=== PATIENT | female | born 1975 | race Caucasian/White ===

== ENCOUNTER 2023-05-24 10:54 | Outpatient (OUT) | payer BC, SELFPAY ==
[2023-05-24 12:20] LABS: Free T4 0.81 ng/dL (0.76-1.46)
[2023-05-24 12:21] LABS: Alanine Aminotransferase 22 U/L (14-59); Albumin Globulin Ratio 1.1; Alkaline Phosphatase 68 U/L (46-116); Aspartate Amino Transferase 19 U/L (15-37); Bilirubin Direct 0.1 mg/dL (0.0-0.2); Bilirubin Total 0.4 mg/dL (0.2-1.0); Free T3 2.65 pg/mL (2.18-3.98); Globulin 3.8 g/dL; Thyroid Stimulating Hormone 1.424 uIU/mL (0.358-3.740); Total Protein 7.8 g/dL (6.4-8.2)
== END 2023-05-24 10:55 | disposition home or self-care (01) ==
LOC: LAB 10:57
PROVIDERS: PCP Family Medicine; Visit Provider Internal Medicine
DX: R79.89 Other specified abnormal findings of blood chemistry (principal); E05.90 Thyrotoxicosis, unspecified without thyrotoxic crisis or storm; E05.00 Thyrotoxicosis with diffuse goiter without thyrotoxic crisis or storm
CPT/HCPCS: 36415; 80076; 84439; 84443; 84481

== ENCOUNTER 2023-11-22 08:02 | Outpatient (OUT) | payer BC, SELFPAY ==
[2023-11-22 09:47] LABS: Free T4 0.85 ng/dL (0.76-1.46)
[2023-11-22 09:51] LABS: Alanine Aminotransferase 25 U/L (14-59); Albumin Globulin Ratio 1.1; Albumin Level 3.8 g/dL (3.4-5.0); Alkaline Phosphatase 69 U/L (46-116); Aspartate Amino Transferase 18 U/L (15-37); Bilirubin Direct 0.1 mg/dL (0.0-0.2); Bilirubin Total 0.4 mg/dL (0.2-1.0); Free T3 2.69 pg/mL (2.18-3.98); Globulin 3.6 g/dL; Thyroid Stimulating Hormone 1.942 uIU/mL (0.358-3.740); Total Protein 7.4 g/dL (6.4-8.2)
== END 2023-11-22 08:03 | disposition home or self-care (01) ==
LOC: LAB 08:03
PROVIDERS: PCP Family Medicine; Visit Provider Internal Medicine
DX: R79.89 Other specified abnormal findings of blood chemistry (principal); E05.90 Thyrotoxicosis, unspecified without thyrotoxic crisis or storm; E05.00 Thyrotoxicosis with diffuse goiter without thyrotoxic crisis or storm
CPT/HCPCS: 36415; 80076; 84439; 84443; 84481

== ENCOUNTER 2024-01-23 08:41 | Outpatient (OUT) | payer BC, SELFPAY ==
--- NOTE | 2024-01-23 08:44 | MM_ITS ---
Patient Name: ALLAN AVENDAÑO MR#: [id number] : 1975 Exam Date: 01/23/2024 Ordering Doctor: DR Merrill Amaya . RADIOLOGY REPORT PROCEDURE: MM TOMOSYNTHESIS SCREENING BI COMPARISON: MG MAMM SCREEN 3D NATI CAD, 01/01/2023. MG MAMM SCREEN 3D NATI CAD, 12/22/2021. MG MAMM SCREEN NATI W CAD, 12/20/2020. MG MAMM SCREEN NATI W CAD, 11/26/2017. INDICATIONS: Screening Calculator Name NCI Breast Cancer Risk Assessment Tool 5 Year Breast Cancer Risk 0.80% Lifetime Breast Cancer Risk 8.50% Personal Breast Cancer No Personal Ovarian Cancer No Treatments None Family Cancers None LOCATION: [facility] BREAST COMPOSITION: Heterogeneously dense,which may obscure small masses. FINDINGS: DIAGNOSTIC CATEGORY 2--BENIGN FINDING: RIGHT BREAST: No significant suspicious finding. Scattered benign-appearing lymph nodes are present. No significant change has occurred. LEFT BREAST: No significant suspicious finding. Scattered benign-appearing lymph nodes are present. No significant change has occurred. RECOMMENDATIONS: ROUTINE MAMMOGRAM AND CLINICAL EVALUATION IN 12 MONTHS. PLEASE NOTE: A NORMAL MAMMOGRAM DOES NOT EXCLUDE THE POSSIBILITY OF BREAST CANCER. A CLINICALLY SUSPICIOUS PALPABLE LUMP SHOULD BE BIOPSIED. Dictated by: Chema Espana M.D. on 01/23/2024 at 09:50 Approved by: Chema Espana M.D. on 01/23/2024 at 09:54
--- OUTSIDE RECORDS SUMMARY | 2024-01-23 08:47 | XMS_ITS | CCD ---
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 Name Role Phone ADRIEL, AHMAD Attending Unavailable ANU, DR SHONNA Chong Primary Care Unavailable ADRIEL, AHMAD Admitting Unavailable TRISTON, DR BEV Stallings Consulting Unavailable ZIEBHILARY, DR CHEMA Navarro Consulting Unavailable ADRIEL, AHMAIndio Consulting Unavailable NOBLE, DR SHONNA Chong Attending Unavailable NOBLE, DR SHONNA Chong Consulting Unavailable NOBLE, DR SHONNA Chong Primary Care Unavailable NOBLE, DR SHONNA Chong Admitting Unavailable ADRIEL, AHMAD Admitting Unavailable ADRIEL, AHMAD Attending Unavailable NOBLE, DR SHONNA Chong Consulting Unavailable NOBLE, DR SHONNA Chong Primary Care Unavailable ADRIEL, AHMAD Admitting Unavailable ADRIEL, AHMAD Attending Unavailable NOBLE, DR SHONNA Chong Primary Care Unavailable ADRIEL, AHMAD Consulting Unavailable KARASISmita ., DR MEHTA Attending Unavailabl e NOBLE, DR SHONNA Chong Primary Care Unavailable KARASISmita ., DR MEHTA Consulting Unavailabl e DAIN ., DR MEHTA Admitting Unavailabl e NAU, DR SHONNA Chong Primary Care Unavailable NOBLE, DR SHONNA Chong Admitting Unavailable NOBLE, DR SHONNA Chong Attending Unavailable KARCARMENK ., DR MEHTA Attending Unavailabl e NOBLE, DR SHONNA Chong Primary Care Unavailable KARASIK ., DR MEHTA Consulting Unavailabl e DAIN ., DR MEHTA Admitting Unavailjob e HANG, DR CHEMA Navarro Consulting Unavailable ADRIEL, AHMAD Admitting Unavailable ADRIEL, AHMAD Attending Unavailable NOBLE, DR SHONNA Chong Primary Care Unavailable ADRIEL, AHMAD Consulting Unavailable Anu, Shonna Unavailable Allergies Allergy Classification Reported Allergen(s) Allergy Type Date of Onset Reaction(s) Facility (1 source) patient allergy list reviewed by nurse or physicia Propensity to adverse reactions Comment:Done [facility] Other (1 source) Allergies Reconciled Propensity to adverse reactions Unknown [facility] Other Medications Current Medications Medication Drug Class(es) Dates Sig (Normalized) Sig (Original) methIMAzole 5 mg oral tablet (4 sources) Thyroid Hormone Synthesis Inhibitor take 1 tablet by mouth every twenty-four hours methIMAzole 5 MG 1 tablet Orally Once a day Active metoprolol tartrate 50 mg oral tablet (4 sources) beta-Adrenergic Joey take 1 capsule by mouth once daily Metoprolol Succinate 50 MG 1 capsule Orally Once a day Active phentermine hydrochloride 37.5 mg oral tablet (4 sources) Sympathomimetic Amine Anorectic Start: 06-07-2023 take 1 tablet by mouth once daily before breakfast Adipex-P 37.5 MG 1 tablet before breakfast Orally Once a day for 30 days May, Active Start: 03-15-2023 take 1 tablet by deangelo th once daily before breakfast Adipex-P 37.5 MG 1 tablet before breakfast Orally Once a day for 30 days March, Active Start: 02-11-2023 take 1 tablet by deangelo th once daily before breakfast Adipex-P 37.5 MG 1 tablet before breakfast Orally Once a day for 30 days Feb, Active Problems Active Problems Problem Classification Problem Date Documented Date Episodic/Chronic Allergic reactions (4 sources) Allergic contact dermatitis caused by plant material; Translations: [Allergic contact dermatitis due to plants, except food] Episodic Asthma (5 sources) Asthma; Translations: [Unspecified asthma, uncomplicated] Onset: 09-07-2014 Chronic Genitourinary symptoms and ill-defined conditions (1 source) Genitourinary symptoms; Translations: [Unspecified symptoms and signs involving the genitourinary system] Episodic Immunizations and screening for infectious disease (1 source) Encounter for screening for human papillomavirus (HPV); Translations: [ENC SCREENING HUMAN PAPILLOMAVIRUS] Onset: 01-16-2023 Episodic Intestinal infection (5 sources) Bacterial gastroenteritis; Translations: [Bacterial intestinal infection, unspecified] Episodic Other circulatory disease (1 source) Elevated blood-pressure reading without diagnosis of hypertension; Translations: [Elevated blood-pressure reading, without diagnosis of hypertension] Episodic Other connective tissue disease (5 sources) Muscle pain; Translations: [Myalgia, unspecified site] Episodic Other hereditary and degenerative nervous system conditions (4 sources) Other specified forms of tremor; Translations: [OTHER SPECIFIED FORMS OF TREMOR] Onset: 07-25-2022 Chronic Other hereditary and degenerative nervous system conditions (4 sources) Intention tremor; Translations: [Other specified forms of tremor] Chronic Other hereditary and degenerative nervous system conditions (1 source) Tremor; Translations: [Other specified forms of tremor] Chronic Other nervous system disorders (1 source) Tremor, unspecified; Translations: [TREMOR UNSPECIFIED] Onset: 10-28-2022 Episodic Other nutritional; endocrine; and metabolic disorders (2 sources) Body mass index (BMI) 27.0-27.9, adult Episodic Other nutritional; endocrine; and metabolic disorders (4 sources) Overweight Episodic Other nutritional; endocrine; and metabolic disorders (1 source) Body mass index (BMI) 25.0-25.9, adult Episodic Other nutritional; endocrine; and metabolic disorders (1 source) Body mass index 25-29 - overweight; Translations: [Body mass index (BMI) 27.0-27.9, adult] Episodic Other screening for suspected conditions (not mental disorders or infectious disease) (14 sources) Other specified abnormal findings of blood chemistry; Translations: [Encounter for screening for malignant neoplasm of cervix] Onset: 07-29-2022 Episodic Other skin disorders (1 source) Alopecia; Translations: [Nonscarring hair loss, unspecified] Episodic Other upper respiratory disease (5 sources) Seasonal allergic rhinitis; Translations: [Other allergic rhinitis] Onset: 02-17-2019 Chronic Other upper respiratory infections (1 source) Chronic sinusitis; Translations: [Chronic sinusitis, unspecified] Chronic Other upper respiratory infections (2 sources) Acute maxillary sinusitis; Translations: [Acute recurrent maxillary sinusitis] Onset: 01-07-2018 Episodic Thyroid disorders (6 sources) Thyrotoxicosis with diffuse goiter without thyrotoxic crisis or storm; Translations: [Thyrotoxicosis, unspecified without thyrotoxic crisis or storm] Onset: 10-28-2022 Chronic Viral infection (5 sources) Human papilloma virus infection; Translations: [Papillomavirus as the cause of diseases classified elsewhere] Episodic Past or Other Problems Problem Classification Problem Date Documented Da te Episodic/Chronic Abdominal pain (1 source) Abdominal pain; Translations: [Abdominal pain, other specified site] Onset: 06-13-2018 Episodic Acute bronchitis (1 source) Acute bronchitis; Translations: [Acute bronchitis, unspecified] Resolved: 10-31-2020 Episodic Cardiac dysrhythmias (1 source) Palpitations; Translations: [PALPITATIONS] Onset: 08-25-2022 Episodic Inflammation; infection of eye (except that caused by tuberculosis or sexually transmitteddisease) (1 source) Acute conjunctivitis; Translations: [Unspecified acute conjunctivitis] Onset: 06-04-2016 Episodic Other infections; including parasitic (1 source) Helminth infection; Translations: [Unspecified helminth infection] Onset: 07-21-2018 Episodic Other non-traumatic joint disorders (1 source) Shoulder joint pain; Translations: [Pain in right shoulder] Onset: 03-13-2017 Episodic Other nutritional; endocrine; and metabolic disorders (1 source) Underweight; Translations: [Underweight] Resolved: 10-31-2020 Episodic Spondylosis; intervertebral disc disorders; other back problems (2 sources) Neck pain; Translations: [Cervicalgia] Onset: 03-13-2017 Resolved: 10-31-2020 Episodic Results Test Name Value Interpretation Reference Range Facility FREE T3on 01-18-2023 FREE T3 2.54 pg/mlL Normal 2.18-3.98 [facility] Comment on above: Performed By: #### F T3, TSH #### [facility] [address] [place] [address] Dr. Celso Abraham FREE T4on 01-18-2023 Free T4 [Mass/Vol] 0.70 ng/dL Critically low 0.76-1.46 [facility] Comment on above: Performed By: #### F T4 #### [facility] [address] [place] [address] Dr. Celso Abraham PAP ACOG PANEL 2: 30 to 65on 01-18-2023 . . Normal [facility] Comment on above: Result Comment: Perf ormed at: [facility] Performed By: #### C MP, TSH #### [facility] [address] [place] [address] Dr. Celso Abraham Age Gdln ACOG Testing 30-65 Normal [facility] Comment on above: Performed By: #### C MP, TSH #### [facility] [address] [address] [address] Celso Abraham DIAGNOSIS: Comment Normal [facility] Comment on above: Result Comment: NEGA TIVE FOR INTRAEPITHELIAL LESION OR MALIGNANCY. Performed at: [facility] Performed By: #### C MP, TSH #### [facility] [address] [address] [address] Celso Abraham HPV Aptima Negative Normal Negative [facility] Comment on above: Result Comment: This nucleic acid amplification test detects fourteen high-risk HPV types (16,18,31,33,35,39,45,51,52,56,58,59,66,68) without differentiation. Performed at: =G Performed By: #### C MP, TSH #### [facility] [address] [place] [address] Dr. Celso Abraham HPV Genotype Reflex Comment Normal [facility] Comment on above: Result Comment: Crit eria not met, HPV Genotype not performed. Performed at: [facility] Performed By: #### C MP, TSH #### [facility] [address] [place] [address] Dr. Celso Abraham Methodology: Comment Normal [facility] Comment on above: Result Comment: This liquid based ThinPrep(R) pap test was screened with the use of an image guided system. Performed at: [facility] Performed By: #### C MP, TSH #### [facility] [address] [place] [address] Dr. Celso Abraham Note: Comment Normal [facility] Comment on above: Result Comment: The Pap smear is a screening test designed to aid in the detection of premalignant and malignant conditions of the uterine cervix. It is not a diagnostic procedure and should not be used as the sole means of detecting cervical cancer. Both false-positive and false-negative reports do occur. . Performed at: [facility] Performed By: #### C MP, TSH #### [facility] [address] [place] [address] Dr. Celso Abraham Performed by: Comment Normal [facility] [place] [facility] Comment on above: Result Comment: Savanna Lopez Reservations Sales Agent (ASCP) Performed at: [facility] Performed By: #### C MP, TSH #### [facility] [address] [place], [place] [address] Dr. Celso Abraham Specimen adequacy: Comment Normal [facility] [place] [facility] Comment on above: Result Comment: Sati sfactory for evaluation. Endocervical and/or squamous metaplastic cells (endocervical component) are present. Performed at: [facility] Performed By: #### C MP, TSH #### [facility] [address] [address] [address] Celso Abraham TSHon 01-18-2023 TSH 0.687 uIU/mL Normal 0.358-3.740 [facility] [place] [facility] Comment on above: Performed By: #### F T3, TSH #### [facility] [address] [place], [place] [address] Dr. Celso Abraham MG MAMM SCREEN 3D NATI CADon 01-01-2023 MG MAMM SCREEN 3D NATI CAD Patient: ALLAN AVENDAÑO Exam Date: 01/01/2023 : 1975 Gender:F Ordering : DR TYSON GAUTAM . Admission #: [id number] Family : Order #: [id number] CLICK HERE TO VIEW EXAM RADIOLOGY REPORT PROCEDURE: MAMMOGRAM SCREENING 3D BILATERAL CAD COMPARISON: MG MAMM SCREEN 3D NATI CAD, 12/22/2021. MG MAMM SCREEN NATI W CAD, 12/20/2020. MG MAMM SCREEN NATI W CAD, 12/16/2019. MG MAMM SCREEN NATI W CAD, 11/26/2017. INDICATIONS: Screening mammography Calculator Name NCI Breast Cancer Risk Assessment Tool 5 Year Breast Cancer Risk 0.70% Lifetime Breast Cancer Risk 8.60% Personal Breast Cancer No Personal Ovarian Cancer No Treatments None Family Cancers None LOCATION: [facility] BREAST COMPOSITION: Heterogeneously dense,which may obscure small masses. FINDINGS: DIAGNOSTIC CATEGORY 2--BENIGN FINDING: RIGHT BREAST: No significant suspicious finding. Stable benign-appearing lymph node present. No significant change has occurred. LEFT BREAST: No significant suspicious finding. No significant change has occurred. RECOMMENDATIONS: ROUTINE MAMMOGRAM AND CLINICAL EVALUATION IN 12 MONTHS. PLEASE NOTE: A NORMAL MAMMOGRAM DOES NOT EXCLUDE THE POSSIBILITY OF BREAST CANCER. A CLINICALLY SUSPICIOUS PALPABLE LUMP SHOULD BE BIOPSIED. Dictated by: Chema Espana M.D. on 01/02/2023 at 14:10 Approved by: Chema Espana M.D. on 01/02/2023 at 14:12 Normal [facility] THYROTROPIN RECEPTOR ABon Thyrotropin Receptor Ab, Serum 3.12 IU/L Critically high 0.00-1.75 [facility] Comment on above: Performed By: #### C MP, TSH #### [facility] [address] [place] [address] Dr. Celso Abraham FREE T3on 10-23-2022 FREE T3 2.19 pg/mlL Normal 2.18-3.98 [facility] Comment on above: Performed By: #### T SH, FT3, LIVER #### [facility] [address] [place] [address] Dr. Celso Abraham FREE T4on 10-23-2022 Free T4 [Mass/Vol] 0.72 ng/dL Critically low 0.76-1.46 [facility] Comment on above: Performed By: #### C MP, TSH #### [facility] [address] [place] [address] Dr. Celso Abraham LIVER PROFILEon 10-23-2022 Albumin [Mass/Vol] 3.6 g/dL Normal 3.4-5.0 [facility] Comment on above: Performed By: #### T SH, FT3, LIVER #### [facility] [address] [place] [address] Dr. Celso Abraham Albumin/Globulin [Mass ratio] 1.1 {ratio} Normal [facility] Comment on above: Performed By: #### T SH, FT3, LIVER #### [facility] [address] [place] [address] Dr. Celso Abraham ALP [Catalytic activity/Vol] 136 U/L Critically high 46-116 [facility] Comment on above: Performed By: #### T SH, FT3, LIVER #### [facility] [address] [place] [address] Dr. Celso Abraham ALT [Catalytic activity/Vol] 32 U/L Normal 14-59 [facility] Comment on above: Performed By: #### T SH, FT3, LIVER #### [facility] [address] [place] [address] Dr. Celso Abraham AST [Catalytic activity/Vol] 24 U/L Normal 15-37 [facility] Comment on above: Performed By: #### T SH, FT3, LIVER #### [facility] [address] [place] [address] Dr. Celso Abraham BILI, CONJUGATED 0.1 mg/dL Normal 0.0-0.[address] [facility] Comment on above: Performed By: #### T SH, FT3, LIVER #### [facility] [address] [place] [address] Dr. Celso Abraham Bilirubin [Mass/Vol] 0.4 mg/dL Normal 0.2-1.0 [facility] Comment on above: Performed By: #### T SH, FT3, LIVER #### [facility] [address] [place] [address] Dr. Celso Abraham Globulin (S) [Mass/Vol] 3.4 g/dL Normal [facility] Comment on above: Performed By: #### T SH, FT3, LIVER #### [facility] [address] [place] [address] Dr. Celso Abraham Protein [Mass/Vol] 7.0 g/dL Normal 6.4-8.2 [facility] Comment on above: Performed By: #### T SH, FT3, LIVER #### [facility] [address] [place] [address] Dr. Celso Abraham TSHon 10-23-2022 TSH Qn m[IU]/L Critically low 0.358-3.740 [facility] Comment on above: Performed By: #### T SH, FT3, LIVER #### [facility] [address] [place] [address] Dr. Celso Abraham THYROID ANTIBODIESon 022 Thyroglobulin Antibody 62.7 IU/mL Critically high 0.0-0.9 [facility] Comment on above: Result Comment: Thyr oglobulin Antibody measured by [employer] Methodology Performed By: #### C MP, TSH #### [facility] [address] [place] [address] Dr. Celso Abraham Thyroid Peroxidase (TPO) Ab 115 IU/mL Critically high 0-34 [facility] Comment on above: Performed By: #### C MP, TSH #### [facility] [address] [place] [address] Dr. Celso Abraham THYROTROPIN RECEPTOR ABon Thyrotropin Receptor Ab, Serum 7.58 IU/L Critically high 0.00-1.75 [facility] Comment on above: Performed By: #### T HYRABT #### [facility] [address] [place] [address] Dr. Celso Abraham NM THY SCAN W [place] 08-23-20 22 NM THY SCAN W UPT EXAMINATION: NM THY SCAN W UPT HISTORY: Palpitations , abnormal blood chemistry, thyrotoxicosis COMPARISON: No relevant comparison available. TECHNIQUE: After obtaining patient consent, 259.9 uCi I-123 was administered orally. Uptake was evaluated between 4 and 6 hours and at 24 hours. Images were acquired at 4 - 6 hours. FINDINGS: THYROID SCAN: The thyroid gland appears diffusely enlarged Six-hour uptake: 45.1%, normal range 6-14% 24 hour uptake: 64%, normal range 10-30% IMPRESSION: Enlarged thyroid gland with markedly increased uptake consistent with hyperthyroidism Electronically authenticated by: BEV GOLDSTEIN Date: 2022-08-23 08:02 Normal [facility] FREE T3on 08-22-2022 FREE T3 7.90 pg/mlL Critically high 2.18-3.[address] [facility] Comment on above: Performed By: #### C MP, TSH #### [facility] [address] [place] [address] Dr. Celso Abraham FREE T4on 08-22-2022 Free T4 [Mass/Vol] 2.01 ng/dL Critically high 0.76-1.46 [facility] Comment on above: Performed By: #### C MP, TSH #### [facility] [address] [place] [address] Dr. Celso Abraham LIVER PROFILEon 08-22-2022 Albumin [Mass/Vol] 3.4 g/dL Normal 3.4-5.0 [facility] Comment on above: Performed By: #### C MP, TSH #### [facility] [address] [address] [address] Celso Abraham Albumin/Globulin [Mass ratio] 1.0 {ratio} Normal [facility] Comment on above: Performed By: #### C MP, TSH #### [facility] [address] [address] [address] Celso Abraham ALP [Catalytic activity/Vol] 160 U/L Critically high 46-116 [facility] Comment on above: Performed By: #### C MP, TSH #### [facility] [address] [address] [address] Celso Abraham ALT [Catalytic activity/Vol] 34 U/L Normal 14-59 [facility] Comment on above: Performed By: #### C MP, TSH #### [facility] [address] [address] [address] Celso Abraham AST [Catalytic activity/Vol] 14 U/L Critically low 15-37 [facility] Comment on above: Performed By: #### C MP, TSH #### [facility] [address] [address] [address] Celso Abraham BILI, CONJUGATED 0.1 mg/dL Normal 0.0-0.[address] [facility] Comment on above: Performed By: #### C MP, TSH #### [facility] [address] [address] [address] Celso Abraham Bilirubin [Mass/Vol] 0.2 mg/dL Normal 0.2-1.0 [facility] Comment on above: Performed By: #### C MP, TSH #### [facility] [address] [address] [address] Celso Abraham Globulin (S) [Mass/Vol] 3.4 g/dL Normal [facility] Comment on above: Performed By: #### C MP, TSH #### [facility] [address] [address] [address] Celso Abraham Protein [Mass/Vol] 6.8 g/dL Normal 6.4-8.2 [facility] [place] [facility] Comment on above: Performed By: #### C MP, TSH #### [facility] [address] [address] [address] Celso Abraham TSHon 08-22-2022 TSH Qn m[IU]/L Critically low 0.358-3.740 [facility] Comment on above: Performed By: #### C MP, TSH #### [facility] [address] [address] [address] Celso Abraham US THYROIDon 08-22-2022 US THYROID EXAMINATION: US THYROID HISTORY: Thyrotoxicosis COMPARISON: No relevant comparison available. FINDINGS: RIGHT LOBE: Heterogeneous hypervascular thyroid lobe. Lobe size: 5.1 x 1.7 0.6 cm LEFT LOBE: Heterogeneous hypervascular thyroid lobe. Lobe size: 4.9 x 1.6 x 1.7 cm ISTHMUS: Contains a 5 x 4 x 3 mm TR 4 nodule within left aspect of the isthmus. Thickness: 3 mm IMPRESSION: 1. Heterogeneous hypervascular thyroid gland, nonspecific but suggestive of thyroiditis. 2. Single 5 mm TR 4 nodule within the isthmus. Consider follow-up in 2-3 years. TR4 (moderately suspicious): If > 1.0 cm Follow-up ultrasound in 1, 2, 3, and 5 years. If > 1.5 cm fine needle aspiration (FNA). Electronically authenticated by: CHEMA ESPANA Date: 2022-08-22 16:07 Normal [facility] CERULOPLASMINon 07-26-2022 Ceruloplasmin 34.9 mg/dL Normal 19.0-39.0 [facility] [place] [facility] Comment on above: Performed By: #### C EUROPL #### [facility] [address] [address] [address] Celso Abraham FREE T4on 07-25-2022 Free T4 [Mass/Vol] 2.34 ng/dL Critically high 0.76-1.46 [facility] Comment on above: Performed By: #### C MP, TSH #### [facility] [address] [address] [address] Celso Abraham PROF 14(COMP METB)on 09-14-2 022 Albumin [Mass/Vol] 3.8 g/dL Normal 3.4-5.0 [facility] Comment on above: Performed By: #### C MP, TSH #### [facility] [address] [place] [address] Dr. Celso Abraham Albumin/Globulin [Mass ratio] 1.1 {ratio} Normal [facility] Comment on above: Performed By: #### C MP, TSH #### [facility] [address] [address] [address] Celso Abraham ALP [Catalytic activity/Vol] 163 U/L Critically high 46-116 [facility] Comment on above: Performed By: #### C MP, TSH #### [facility] [address] [place] [address] Dr. Celso Abraham ALT [Catalytic activity/Vol] 41 U/L Normal 14-59 [facility] Comment on above: Performed By: #### C MP, TSH #### [facility] [address] [place] [address] Dr. Celso Abraham Anion gap [Moles/Vol] 13.4 mmol/L Normal [facility] Comment on above: Performed By: #### C MP, TSH #### [facility] [address] [place] [address] Dr. Celso Abraham AST [Catalytic activity/Vol] 21 U/L Normal 15-37 [facility] Comment on above: Performed By: #### C MP, TSH #### [facility] [address] [place] [address] Dr. Celso Abraham Bilirubin [Mass/Vol] 0.5 mg/dL Normal 0.2-1.0 [facility] Comment on above: Performed By: #### C MP, TSH #### [facility] [address] [place] [address] Dr. Celso Abraham Calcium [Mass/Vol] 9.8 mg/dL Normal 8.5-10.1 [facility] Comment on above: Performed By: #### C MP, TSH #### [facility] [address] [place] [address] Dr. Celso Abraham Chloride [Moles/Vol] 104 mmol/L Normal 98-107 [facility] Comment on above: Performed By: #### C MP, TSH #### [facility] [address] [place] [address] Dr. Celso Abraham CO2 [Moles/Vol] 24.9 mmol/L Normal 21.0-32.[address] [facility] Comment on above: Performed By: #### C MP, TSH #### [facility] [address] [place] [address] Dr. Celso Abraham Creatinine [Mass/Vol] 0.67 mg/dL Normal 0.55-1.02 [facility] Comment on above: Performed By: #### C MP, TSH #### [facility] [facility] [address] [place] [address] Dr. Celso Abraham EGFR-AF TURKISH >60 Normal >=[address] [facility] Comment on above: Performed By: #### C MP, TSH #### [facility] [address] [place] [address] Dr. Celso Abraham EGFR-NON AF TURKISH >60 Normal >=60 [facility] Comment on above: Performed By: #### C MP, TSH #### [facility] [address] [place] [address] Dr. Celso Abraham Globulin (S) [Mass/Vol] 3.6 g/dL Normal [facility] Comment on above: Performed By: #### C MP, TSH #### [facility] [address] [place] [address] Dr. Celso Abraham Glucose [Mass/Vol] 104 mg/dL Normal 74-106 [facility] Comment on above: Performed By: #### C MP, TSH #### [facility] [address] [place] [address] Dr. Celso Abraham Potassium [Moles/Vol] 4.3 mmol/L Normal 3.5-5.1 [facility] Comment on above: Performed By: #### C MP, TSH #### [facility] [address] [place] [address] Dr. Celso Abraham Protein [Mass/Vol] 7.4 g/dL Normal 6.4-8.2 [facility] Comment on above: Performed By: #### C MP, TSH #### [facility] [address] [address] [address] Celso Abraham Sodium [Moles/Vol] 138 mmol/L Normal 136-145 [facility] Comment on above: Performed By: #### C MP, TSH #### [facility] [address] [address] [address] Celso Abraham Urea nitrogen [Mass/Vol] 14.0 mg/dL Normal 7.0-18.0 [facility] Comment on above: Performed By: #### C MP, TSH #### [facility] [address] [address] [address] Celso Abraham Urea nitrogen/Creatinine [Mass ratio] 20.9 mg/mg Normal [facility] Comment on above: Performed By: #### C MP, TSH #### [facility] [address] [address] [address] Celso Abraham TSHon 07-25-2022 TSH Qn m[IU]/L Critically low 0.358-3.740 [facility] Comment on above: Performed By: #### C MP, TSH #### [facility] [address] [place] [address] Dr. Celso Abraham Vital Signs Date Time Vital Sign Value Performing Clinician Facility 06-07-2023 11:45-0400 Body height 158.75 cm Shonna Noble Other [facility] Other 06-07-2023 11:45-0400 Body mass index (BMI) [Ratio] 25.2 kg/m2 Shonna Noble Other [facility] Other 06-07-2023 11:45-0400 Body weight 63.5 kg Shonna Noble Other [facility] Other 06-07-2023 11:45-0400 Diastolic blood pressure 60 mm[Hg] Shonna Noble Other [facility] Other 06-07-2023 11:45-0400 Systolic blood pressure 99 mm[Hg] Shonna Noble Other [facility] Other 03-15-2023 10:00-0400 Body height 158.75 cm Shonna Noble Other [facility] Other 03-15-2023 10:00-0400 Body mass index (BMI) [Ratio] 25.92 kg/m2 Shonna Noble Other [facility] Other 03-15-2023 10:00-0400 Body weight 65.32 kg Shonna Nolbe Other [facility] Other 03-15-2023 10:00-0400 Diastolic blood pressure 58 mm[Hg] Shonna Noble Other [facility] Other 03-15-2023 10:00-0400 Systolic blood pressure 94 mm[Hg] Shonna Noble Other [facility] Other 02-11-2023 14:45-0400 Body height 158.75 cm Shonna Noble Other [facility] Other 02-11-2023 14:45-0400 Body mass index (BMI) [Ratio] 27.9 kg/m2 Shonna Noble Other [facility] Other 02-11-2023 14:45-0400 Body weight 70.31 kg Shonna Noble Other [facility] Other 02-11-2023 14:45-0400 Diastolic blood pressure 64 mm[Hg] Shonna Noble Other [facility] Other 02-11-2023 14:45-0400 SaO2% (BldA) [Mass fraction] 97 % Shonna Noble Other [facility] Other 02-11-2023 14:45-0400 Systolic blood pressure 98 mm[Hg] Shonna Noble Other [facility] Other Encounters Encounter Date Encounter Type Care Provider Facility Start: 06-07-2023 End: 06-07-2023 ambulatory Shonna Noble Other [facility] Other Start: 06-07-2023 Office outpatient vi sit 15 minutes Shonna Noble [facility] Start: 03-15-2023 End: 03-15-2023 ambulatory Shonna Noble Other [facility] Other Start: 03-15-2023 Office outpatient vi sit 15 minutes Shonna Noble [facility] Start: 02-11-2023 End: 02-11-2023 ambulatory Shonna Noble Other [facility] Other Start: 02-11-2023 Office outpatient vi sit 15 minutes Shonna Noble [facility] Start: 01-18-2023 End: 01-19-2023 ambulatory [facility] Facility:[facility] Start: 01-15-2023 End: 01-15-[address] TYSON GAUTAM . Facility:[facility] Start: 01-01-2023 End: 01-02-[address] TYSON GAUTAM . Facility:[facility] Start: 10-23-2022 End: 10-24-2022 ambulatory [facility] Facility:[facility] Start: 10-08-2022 Gynecological examin ation normal Shonna Noble Other [facility] Other Start: 08-23-2022 ambulatory [facility] Facility: [facility] Start: 08-22-2022 End: 08-23-2022 ambulatory [facility] Facility:[facility] Start: 07-25-2022 Adult health examination Yara Noble Other [facility] Other Start: 07-25-2022 End: 07-26-[address] SHONNA NOBLE Facility:[facility] Start: 02-27-[address] SHONNA NOBLE [facility] ity:[facility]1 Procedures Date Procedure Procedure Detail Performing Clinician Screening for malign ant neoplasm of breast Shonna Noble Other Screening for malign ant neoplasm of breast Shonna Noble Other Payers Date Payer Category Payer Unknown [id number] 2.16.84 [id number] 1977 Unknown [id number] 2.16.84 [id number] 1977 Unknown [id number] 2.16.84 [id number] 1977 Unknown [id number] 2.16.84 [id number] 1977 Unknown [id number] 2.16.84 [id number] 1977 Unknown [id number] 2.16.84 [id number] 1977 Unknown [id number] 2.16.84 [id number] 1977 Unknown [id number] 2.16.84 [id number] 1959 Self-pay 1957 Unknown [id number] Social History Date Type Detail Facility Unknown if ever smoked [facility] Other Sex Assigned At Sex Assigned At Bir th [facility] Other Evaluation note 06-07-2023 Note Date & Type Note Facility 06-07-2023 Evaluation note Encounter Date Diagnosis Assessment Notes May, Overweight (BMI 25.0-29.9) (ICD-10 - E66.3) Last filled on 03/15 - discussed new pharmacy rules. BMI is 25 and she filled it in March. Unsure if [facility] can fill this. Pt expressed marilia harrell Discussed diet and exercise. May, Hyperthyroidism (ICD-10 - E05.90) Discussed labs and treatment with Dr. Matias [facility] Other Evaluation note 03-15-2023 Note Date & Type Note Facility 03-15-2023 Evaluation note Encounter Date Diagnosis Assessment Notes March, Overweight (ICD-10 - E66.3) Patient has clearly made a good vianca effort for several months on her own to lose weight with little success. Pt to start Adipex daily. Medication is a stimulant. May cause you to be jittery or constipated. Take in the morning, may also take stool softener daily as needed. Continue to eat a healthy well balanced diet and continue work-out regimine. Pt aware that this is not a cure for obesity but a tool used to help them during their weight loss plateau. Pt aware that they need to continue to work hard at weight loss or the weight will be regained. Side effects discussed and understood. Pt education printed and discussed. Pt notified of prescribing schedule with 30 day dispensing, no refills, for up to 12 weeks, with a 6 month break in-between treatments. Id SOB, CP, mood changes, tachycardia, HTN, headaches, blurred vision occur, go to ER and Follow-up with me immediately. Understands this will likely be her last month with her good progress. March, Body mass index [BMI] 25.0-25.9, adult (ICD-10 - Z68.25) [facility] Other Evaluation note 02-11-2023 Note Date & Type Note Facility 02-11-2023 Evaluation note Encounter Date Diagnosis Assessment Notes Feb, BMI 27.0-27.9,adul t (ICD-10 - Z68.27) Feb, Overweight (BMI 25.0-29.9) (ICD-10 - E66.3) Patient has clearly made a good vianca effort for several months on her own to lose weight with little success. Pt to start Adipex daily. Medication is a stimulant. May cause you to be jittery or constipated. Take in the morning, may also take stool softener daily as needed. Continue to eat a healthy well balanced diet and continue work-out regimine. Pt aware that this is not a cure for obesity but a tool used to help them during their weight loss plateau. Pt aware that they need to continue to work hard at weight loss or the weight will be regained. Side effects discussed and understood. Pt education printed and discussed. Pt notified of prescribing schedule with 30 day dispensing, no refills, for up to 12 weeks, with a 6 month break in-between treatments. Id SOB, CP, mood changes, tachycardia, HTN, headaches, blurred vision occur, go to ER and Follow-up with me immediately. Advised her to cut tablets in 1/2 initially. [facility] Other Evaluation note 02-11-2023 Note Date & Type Note Facility 02-11-2023 Evaluation note Encounter Date Diagnosis Assessment Notes Feb, BMI 27.0-27.9,adult (ICD-10 - Z68.27) Feb, Overweight (BMI 25.0-29.9) (ICD-10 - E66.3) Patient has clearly made a good vianca effort for several months on her own to lose weight with little success. Pt to start Adipex daily. Medication is a stimulant. May cause you to be jittery or constipated. Take in the morning, may also take stool softener daily as needed. Continue to eat a healthy well balanced diet and continue work-out regimine. Pt aware that this is not a cure for obesity but a tool used to help them during their weight loss plateau. Pt aware that they need to continue to work hard at weight loss or the weight will be regained. Side effects discussed and understood. Pt education printed and discussed. Pt notified of prescribing schedule with 30 day dispensing, no refills, for up to 12 weeks, with a 6 month break in-between treatments. Id SOB, CP, mood changes, tachycardia, HTN, headaches, blurred vision occur, go to ER and Follow-up with me immediately. Advised her to cut tablets in 1/2 initially. Feb, Hyperthyroidism (ICD-10 - E05.90) Discussed that she is under the care of Dr. Matias for this problem, this bears a component in her hair and weight issues. Continue followup with his office. [facility] Other History general Narrative - Reported Note Date & Type Note Facility History general Narrative - Reported Type Medical History seasonal allergies Medical History asthma Medical History infectious gastroenteritis Medical History myalgia Medical History intention tremor Medical History HPV infection Surgical History section Hospitalization History see surgical hx [facility] Other Summary Purpose Family History No Family History Records Found Advance Directives No Advanced Directives Records Found Additional Source Comments INFORMATION SOURCE (unrecogn ized section and content) DATE CREATED AUTHOR 01/23/2023 [facility] REASON FOR VISIT (unrecogniz ed section and content) Hair Loss/ WeightCheck UpHai r Loss/ WeightMedication Discussion FOR RECORDS PERTAINING TO PATIENTS WHO ARE OR HAVE BEEN ENROLLED IN A CHEMICAL DEPENDENCY/SUBSTANCEABUSE PROGRAM, SOME INFORMATION MAY BE OMITTED. This clinical summary was aggregated from multiple sources. Caution should be exercised in using it in the provision of clinical care. This summary normalizes information from multiple sources, and as a consequence, information in this document may materially change the coding, format and clinical context of patient data. In addition, data may be omitted in some cases. CLINICAL DECISIONS SHOULD BE BASED ON THE PRIMARY CLINICAL RECORDS. [employer] [facility]. provides no warranty or guarantee of the accuracy or completeness of information in this document.
== END 2024-01-23 08:42 | disposition home or self-care (01) ==
LOC: MAMMO 08:41
PROVIDERS: PCP Family Medicine; Visit Provider Obstetrics & Gynecology
DX: Z12.31 Encounter for screening mammogram for malignant neoplasm of breast (principal)
CPT/HCPCS: 77063; 77067

== ENCOUNTER 2024-03-09 20:09 | Outpatient (REF) | payer BC, SELFPAY ==
--- OUTSIDE RECORDS SUMMARY | 2024-03-09 20:14 | XMS_ITS | CCD ---
Author Organization [facility] Care Team Providers Care Shellfish Shucker Name Role Phone ADRIEL AHMAD Attending Unavailable ANU, DR SHONNA Chong Primary Care Unavailable ADRIEL, AHMAD Admitting Unavailable SMITHFIELD, DR BEV Stallings Consulting Unavailable ZIEBHILARY, DR CHEMA Navarro Consulting Unavailable ADRIEL, AHMAD Consulting Unavailable NOBLE, DR SHONNA Chong Attending Unavailable NOBLE, DR SHONNA Chong Consulting Unavailable NOBLE, DR SHONNA Chong Primary Care Unavailable NOBLE, DR SHONNA Chong Admitting Unavailable ADRIEL, AHALEX Admitting Unavailable ADRIEL, AHMILOD Attending Unavailable ANU, DR SHONNA Chong Consulting Unavailable ANU, DR SHONNA Chong Primary Care Unavailable ADRIEL, AHMAIndio Admitting Unavailable ADRIEL, AHMILOD Attending Unavailable NOBLE, DR SHONNA Chong Primary Care Unavailable ADRIEL, AHALEX Consulting Unavailable KARASISmita ., DR MEHTA Attending Unavailabl e NOBLE, DR SHONNA Chong Primary Care Unavailable KARASIK ., DR MEHTA Consulting Unavailabl e KARASIK ., DR MEHAT Admitting Unavailabl e ANU, DR SHONNA Chong Primary Care Unavailable NOBLE, DR SHONNA Chong Admitting Unavailable NOBLE, DR SHONNA Chong Attending Unavailable KARASIK ., DR MEHTA Attending Unavailabl e NOBLE, DR SHONNA Chong Primary Care Unavailable KARASIK ., DR MEHTA Consulting Unavailabl e KARASIK ., DR MEHTA Admitting Unavailabl e HANG, DR CHEMA Navarro Consulting Unavailable ADRIEL, AHMAD Admitting Unavailable ADRIEL, AHMAD Attending Unavailable NOBLE, DR SHONNA Chong Primary Care Unavailable ADRIEL, AHMAD Consulting Unavailable Shonna Noble Unavailable Allergies Allergy Classification Reported Allergen(s) Allergy Type Date of Onset Reaction(s) Facility (1 source) patient allergy list reviewed by nurse or physicia Propensity to adverse reactions 9 Comment:Done [employer] Other (1 source) Allergies Reconciled Propensity to adverse reactions Unknown [employer] Other Medications Current Medications Medication Drug Class(es) Dates Sig (Normalized) Sig (Original) Azithromycin (1 source) Macrolide Antimicrobial Start: 02-10-2024 Azithromycin Active 0 PO .COMPLEX 6 February 10, 2024 12:00am For 250 mg dose pack: take 500 mg today (day 1), then 250 mg for 4 days (days 2-5) PO benzonatate 200 mg oral capsule (1 source) Non-narcotic Antitussive Start: 02-10-2024 Benzonatate Active 200 MG PO 2-3 TIMES PER DAY February 10, 2024 12:00am methIMAzole 5 mg oral tablet (5 sources) Thyroid Hormone Synthesis Inhibitor Start: 02-10-2024 take 1 tablet by mouth once daily Methimazole Active 1 TAB PO Daily February 10, 2024 12:00am [employer] tablet Orally Once a day; Note: Source Status: Taking; Provider: Anu Kilpatrick ( ) take 1 tablet by deangelo th every twenty-four hours methIMAzole 5 MG 1 tablet Orally Once a day Active 24 hr metoprolol succinate 50 mg extended release oral tablet (5 sources) beta-Adrenergic Joey Start: 02-10-2024 take 1 tablet by mouth once daily Metoprolol Succinate Active 1 TAB PO Daily February 10, 2024 12:00am [employer]: TAKE 1 TABLET BY MOUTH EVERY DAY; Note: Source Status: Start; Refills: 1; Qty: 90 Tablet; Provider: Anu Kilpatrick ( ) take 1 capsule by mouth once sue ly Metoprolol Succinate 50 MG 1 capsule Orally [...] conditions (not mental disorders or infectious disease) (16 sources) Other specified abnormal findings of blood [...] [Acute recurrent maxillary sinusitis] Onset: 01-07-2018 Episodic Residual codes; unclassified (1 source) Family history of cancer of colon; Translations: [Family history of malignant neoplasm of digestive organs] 02-10-2024 Episodic Residual codes; unclassified (1 source) Family history of malignant neoplasm of digestive organs; Translations: [Family history of malignant neoplasm of gastrointestinal tract] 02-10-2024 Episodic Thyroid disorders (6 sources) Thyrotoxicosis with [...] 01-18-2023 FREE T3 2.54 pg/mlL Normal 2.18-3.98 [facility] Comment on above: Performed By: #### F T3, TSH #### [facility] [address] [address] [address] Celso Abraham FREE T4on 01-18-2023 Free T4 [Mass/Vol] 0.70 ng/dL Critically low 0.76-1.46 Th e [facility] Comment on above: Performed By: #### F T4 #### [facility] [address] [place] [address] Dr. Celso Abraham PAP ACOG PANEL 2: 30 to 65on 01-18-2023 . . Normal [facility] Comment on above: Result Comment: Perf ormed at: [facility] Performed By: #### C MP, TSH #### [facility] [address] [address] [address] Celso Abraham Age Gdln ACOG Testing 30-65 Normal [facility] Comment on above: Performed By: #### C MP, TSH #### [facility] [address] [place] [address] Dr. Celso Abraham DIAGNOSIS: Comment Normal [facility] Comment on above: Result Comment: NEGA TIVE FOR INTRAEPITHELIAL LESION OR MALIGNANCY. Performed at: [facility] Performed By: #### C MP, TSH #### [facility] [address] [place] [address] Dr. Celso Abraham HPV Aptima Negative Normal Negative [facility] Comment on above: Result Comment: This nucleic acid amplification test detects fourteen high-risk HPV types (16,18,31,33,35,39,45,51,52,56,58,59,66,68) without differentiation. Performed at: =G Performed By: #### C MP, TSH #### [facility] [address] [place] [address] Dr. Celso Abraham HPV Genotype Reflex Comment Normal [facility] Comment on above: Result Comment: Crit eria not met, HPV Genotype not performed. Performed at: [facility] Performed By: #### C MP, TSH #### [facility] [address] [place] [address] Dr. Cleso Abraham Methodology: Comment Normal [facility] Comment on above: Result Comment: This liquid based ThinPrep(R) pap test was screened with the use of an image guided system. Performed at: [facility] Performed By: #### C MP, TSH #### [facility] [address] [place] [address] Dr. Celso Abraham Note: Comment Normal [facility] Comment on above: Result Comment: The Pap [...] Performed By: #### C MP, TSH #### [facility] [address] [place] [address] Dr. Celso Abraham Performed by: Comment Normal [facility] Comment on above: Result Comment: Savanna Lopez Stage Builder (ASCP) Performed at: [facility] Performed By: #### C MP, TSH #### [facility] [address] [place] [address] Dr. Celso Abraham Specimen adequacy: Comment Normal [facility] Comment on above: Result Comment: Sati sfactory for evaluation. Endocervical and/or squamous metaplastic cells (endocervical component) are present. Performed at: [facility] Performed By: #### C MP, TSH #### [facility] [address] [place] [address] Dr. Celso Abraham TSHon 01-18-2023 TSH 0.687 uIU/mL Normal 0.358-3.740 [facility] Comment on above: Performed By: #### F T3, TSH #### [facility] [address] [place] [address] Dr. Celso Abraham MG MAMM SCREEN 3D NATI CADon 01-01-2023 MG MAMM SCREEN 3D NATI CAD Patient: ALLAN AVENDAÑO Exam Date: 01/01/2023 : 1975 Gender:F Ordering : DR TYSON GAUTAM . Admission #: [id number] Family : Order #: [id number] CLICK HERE TO VIEW EXAM RADIOLOGY REPORT [...] No Treatments None Family Cancers None LOCATION: [facility] BREAST COMPOSITION: Heterogeneously dense,which may obscure small [...] [place] M.D. on 01/02/2023 at 14:12 Normal [facility] THYROTROPIN RECEPTOR ABon Thyrotropin Receptor Ab, Serum 3.12 IU/L Critically high 0.00-1.75 [facility] Comment on above: Performed By: #### C MP, TSH #### [facility] [address] [address] [address] Celso Abraham FREE T3on 10-23-2022 FREE T3 2.19 pg/mlL Normal 2.18-3.98 [facility] Comment on above: Performed By: #### T SH, FT3, LIVER #### [facility] [address] [address] [address] Celso Abraham FREE T4on 10-23-2022 Free T4 [Mass/Vol] 0.72 ng/dL Critically low 0.76-1.46 [facility] Comment on above: Performed By: #### C MP, TSH #### [facility] [address] [address] [address] Celso Abraham LIVER PROFILEon 10-23-2022 Albumin [Mass/Vol] 3.6 g/dL Normal 3.4-5.0 [facility] Comment on above: Performed By: #### T SH, FT3, LIVER #### [facility] [address] [address] [address] Celso Abraham Albumin/Globulin [Mass ratio] 1.1 {ratio} Normal [facility] Comment on above: Performed By: #### T SH, FT3, LIVER #### [facility] [address] [address] [address] Celso Abraham ALP [Catalytic activity/Vol] 136 U/L Critically high 46-116 [facility] Comment on above: Performed By: #### T SH, FT3, LIVER #### [facility] [address] [address] [address] Celso Abraham ALT [Catalytic activity/Vol] 32 U/L Normal 14-59 [facility] Comment on above: Performed By: #### T SH, FT3, LIVER #### [facility] [address] [address] [address] Celso Abraham AST [Catalytic activity/Vol] 24 U/L Normal 15-37 [facility] Comment on above: Performed By: #### T SH, FT3, LIVER #### [facility] [address] [address] [address] Celso Abraham BILI, CONJUGATED 0.1 mg/dL Normal 0.0-0.2 [facility] Comment on above: Performed By: #### T SH, FT3, LIVER #### [facility] [address] [address] [address] Celso Abraham Bilirubin [Mass/Vol] 0.4 mg/dL Normal 0.2-1.0 [facility] Comment on above: Performed By: #### T SH, FT3, LIVER #### [facility] [address] [address] [address] Celso Abraham Globulin (S) [Mass/Vol] 3.4 g/dL Normal [facility] Comment on above: Performed By: #### T SH, FT3, LIVER #### [facility] [address] [address] [address] Celso Abraham Protein [Mass/Vol] 7.0 g/dL Normal 6.4-8.2 [facility] Comment on above: Performed By: #### T SH, FT3, LIVER #### [facility] [address] [place] [address] Dr. Celso Abraham TSHon 10-23-2022 TSH Qn m[IU]/L Critically low 0.358-3.740 [facility] Comment on above: Performed By: #### T SH, FT3, LIVER #### [facility] [address] [place] [address] Dr. Celso Abraham THYROID ANTIBODIESon 022 Thyroglobulin Antibody 62.7 IU/mL Critically high 0.0-0.9 [facility] Comment on above: Result Comment: Thyr oglobulin Antibody measured by [employer] Methodology Performed By: #### C MP, TSH #### [facility] [address] [place] [address] Dr. Celso Abraham Thyroid Peroxidase (TPO) Ab 115 IU/mL Critically high 0-34 [facility] Comment on above: Performed By: #### C MP, TSH #### [facility] [address] [place] [address] Dr. Celso Abraham THYROTROPIN RECEPTOR ABon Thyrotropin Receptor Ab, Serum 7.58 IU/L Critically high 0.00-1.75 [facility] Comment on above: Performed By: #### T HYRABT #### [facility] [address] [place] [address] Dr. Celso Abraham NM THY SCAN W [...] by: BEV GOLDSTEIN Date: 2022-08-23 08:02 Normal [facility] FREE T3on 08-22-2022 FREE T3 7.90 pg/mlL Critically high 2.18-3.98 [facility] Comment on above: Performed By: #### C MP, TSH #### [facility] [address] [place] [address] Dr. Celso Abraham FREE T4on 08-22-2022 Free T4 [Mass/Vol] 2.01 ng/dL Critically high 0.76-1.46 [facility] Comment on above: Performed By: #### C MP, TSH #### [facility] [address] [place] [address] Dr. Celso Abraham LIVER PROFILEon 08-22-2022 Albumin [Mass/Vol] 3.4 g/dL Normal 3.4-5.0 [facility] Comment on above: Performed By: #### C MP, TSH #### [facility] [address] [place] [address] Dr. Celso Abraham Albumin/Globulin [Mass ratio] 1.0 {ratio} Normal [facility] Comment on above: Performed By: #### C MP, TSH #### [facility] [address] [place] [address] Dr. Celso Abraham ALP [Catalytic activity/Vol] 160 U/L Critically high 46-116 [facility] Comment on above: Performed By: #### C MP, TSH #### [facility] [address] [place] [address] Dr. Celso Abraham ALT [Catalytic activity/Vol] 34 U/L Normal 14-59 [facility] Comment on above: Performed By: #### C MP, TSH #### [facility] [address] [address] [address] Celso Abraham AST [Catalytic activity/Vol] 14 U/L Critically low 15-37 [facility] Comment on above: Performed By: #### C MP, TSH #### [facility] [address] [place] [address] Dr. Celso Abraham BILI, CONJUGATED 0.1 mg/dL Normal 0.0-0.2 [facility] Comment on above: Performed By: #### C MP, TSH #### [facility] [address] [place] [address] Dr. Celso Abraham Bilirubin [Mass/Vol] 0.2 mg/dL Normal 0.2-1.0 [facility] Comment on above: Performed By: #### C MP, TSH #### [facility] [address] [place] [address] Dr. Celso Abraham Globulin (S) [Mass/Vol] 3.4 g/dL Normal [facility] Comment on above: Performed By: #### C MP, TSH #### [facility] [address] [place] [address] Dr. Celso Abraham Protein [Mass/Vol] 6.8 g/dL Normal 6.4-8.2 [facility] Comment on above: Performed By: #### C MP, TSH #### [facility] [address] [place] [address] Dr. Celso Abraham TSHon 08-22-2022 TSH Qn m[IU]/L Critically low 0.358-3.740 [facility] Comment on above: Performed By: #### C MP, TSH #### [facility] [address] [place] [address] Dr. Celso Abraham US THYROIDon 08-22-2022 US [...] fine needle aspiration (FNA). Electronically authenticated by: CHMEA ESPANA Date: 2022-08-22 16:07 Normal [facility] CERULOPLASMINon 07-26-2022 Ceruloplasmin 34.9 mg/dL Normal 19.0-39.0 [facility] Comment on above: Performed By: #### C EUROPL #### [facility] [address] [place] [address] Dr. Celso Abraham FREE T4on 07-25-2022 Free T4 [Mass/Vol] 2.34 ng/dL Critically high 0.76-1.46 [facility] Comment on above: Performed By: #### C MP, TSH #### [facility] [address] [place] [address] Dr. Celso Abraham PROF 14(COMP METB)on 022 Albumin [Mass/Vol] 3.8 g/dL Normal 3.4-5.0 [facility] Comment on above: Performed By: #### C MP, TSH #### [facility] [address] [place] [address] Dr. Celso Abraham Albumin/Globulin [Mass ratio] 1.1 {ratio} Normal [facility] Comment on above: Performed By: #### C MP, TSH #### [facility] [address] [place] [address] Dr. Celso Abraham ALP [Catalytic activity/Vol] 163 U/L Critically high 46-116 [facility] Comment on above: Performed By: #### C MP, TSH #### [facility] [address] [place] [address] Dr. Celso Abraham ALT [Catalytic activity/Vol] 41 U/L Normal 14-59 [facility] Comment on above: Performed By: #### C MP, TSH #### [facility] [address] [place] [address] Dr. Celso Abraham Anion gap [Moles/Vol] 13.4 mmol/L Normal [facility] Comment on above: Performed By: #### C MP, TSH #### [facility] [address] [address] [address] Celso Abraham AST [Catalytic activity/Vol] 21 U/L Normal 15-37 [facility] Comment on above: Performed By: #### C MP, TSH #### [facility] [address] [place] [address] Dr. Celso Abraham Bilirubin [Mass/Vol] 0.5 mg/dL Normal 0.2-1.0 [facility] Comment on above: Performed By: #### C MP, TSH #### [facility] [address] [place] [address] Dr. Celso Abraham Calcium [Mass/Vol] 9.8 mg/dL Normal 8.5-10.1 [facility] Comment on above: Performed By: #### C MP, TSH #### [facility] [address] [place] [address] Dr. Celso Abraham Chloride [Moles/Vol] 104 mmol/L Normal 98-107 [facility] Comment on above: Performed By: #### C MP, TSH #### [facility] [address] [place] [address] Dr. Celso Abraham CO2 [Moles/Vol] 24.9 mmol/L Normal 21.0-32.0 [facility] Comment on above: Performed By: #### C MP, TSH #### [facility] [address] [place] [address] Dr. Celso Abraham Creatinine [Mass/Vol] 0.67 mg/dL Normal 0.55-1.02 [facility] Comment on above: Performed By: #### C MP, TSH #### [facility] [address] [place] [address] Dr. Celso Abraham EGFR-AF GERMAN >60 Normal >=60 [facility] Comment on above: Performed By: #### C MP, TSH #### [facility] [address] [place] [address] Dr. Celso Abraham EGFR-NON AF GERMAN >60 Normal >=60 [facility] Comment on above: Performed By: #### C MP, TSH #### [facility] [address] [place] [address] Dr. Celso Abraham Globulin (S) [Mass/Vol] 3.6 g/dL Normal [facility] Comment on above: Performed By: #### C MP, TSH #### [facility] [address] [place] [address] Dr. Celso Abraham Glucose [Mass/Vol] 104 mg/dL Normal 74-106 [facility] Comment on above: Performed By: #### C MP, TSH #### [facility] [address] [place] [address] Dr. Celso Abraham Potassium [Moles/Vol] 4.3 mmol/L Normal 3.5-5.1 [facility] Comment on above: Performed By: #### C MP, TSH #### [facility] [address] [place] [address] Dr. Celso Abraham Protein [Mass/Vol] 7.4 g/dL Normal 6.4-8.2 [facility] Comment on above: Performed By: #### C MP, TSH #### [facility] [address] [place] [address] Dr. Celso Abraham Sodium [Moles/Vol] 138 mmol/L Normal 136-145 [facility] Comment on above: Performed By: #### C MP, TSH #### [facility] [address] [place] [address] Dr. Celso Abraham Urea nitrogen [Mass/Vol] 14.0 mg/dL Normal 7.0-18.0 [facility] Comment on above: Performed By: #### C MP, TSH #### [facility] [address] [place] [address] Dr. Celso Abraham Urea nitrogen/Creatinine [Mass ratio] 20.9 mg/mg Normal [facility] Comment on above: Performed By: #### C MP, TSH #### [facility] [address] [address] [address] Celso Abraham TSHon 07-25-2022 TSH Qn m[IU]/L Critically low 0.358-3.740 [facility] Comment on above: Performed By: #### C MP, TSH #### [facility] [address] [address] [address] Celso Abraham Vital Signs Date Time Vital Sign Value Performing Clinician Facility 02-10-2024 10:37-0400 Body height 158.75 cm [facility] 02-10-2024 10:37-0400 Body mass index (BMI) [Ratio] 27 kg/m2 [facility] 02-10-2024 10:37-0400 Body temperature 98 [degF] [facility] 02-10-2024 10:37-0400 Body weight 68.2 kg [facility] 02-10-2024 10:37-0400 Diastolic blood pressure 69 mm[Hg] [facility] 02-10-2024 10:37-0400 Heart rate 72 /min [facility] 02-10-2024 10:37-0400 Systolic blood pressure 103 mm[Hg] [facility] 06-07-2023 11:45-0400 Body height 158.75 cm Shonna Noble Other [facility] [employer] Other 06-07-2023 11:45-0400 Body mass index (BMI) [Ratio] 25.2 kg/m2 Shonna Noble Other [employer] Other 06-07-2023 11:45-0400 Body weight 63.5 kg Shonna Noble Other [employer] Other 06-07-2023 11:45-0400 Diastolic blood pressure 60 mm[Hg] Shonna Nolbe Other [employer] Other 06-07-2023 11:45-0400 Systolic blood pressure 99 mm[Hg] Shonna Noble Other [employer] Other 03-15-2023 10:00-0400 Body height 158.75 cm Shonna Noble Other [employer] Other 03-15-2023 10:00-0400 Body mass index (BMI) [Ratio] 25.92 kg/m2 Shonna Noble Other [employer] Other 03-15-2023 10:00-0400 Body weight 65.32 kg Shonna Noble Other [employer] Other 03-15-2023 10:00-0400 Diastolic blood pressure 58 mm[Hg] Shonna Noble Other [employer] Other 03-15-2023 10:00-0400 Systolic blood pressure 94 mm[Hg] Shonna Noble Other [employer] Other 02-11-2023 14:45-0400 Body height 158.75 cm Shonna Noble Other [employer] Other 02-11-2023 14:45-0400 Body mass index (BMI) [Ratio] 27.9 kg/m2 Shonna Noble Other [employer] Other 02-11-2023 14:45-0400 Body weight 70.31 kg Shonna Noble Other [employer] Other 02-11-2023 14:45-0400 Diastolic blood pressure 64 mm[Hg] Shonna Noble Other [employer] Other 02-11-2023 14:45-0400 SaO2% (BldA) [Mass fraction] 97 % Shonna Noble Other [employer] Other 02-11-2023 14:45-0400 Systolic blood pressure 98 mm[Hg] Shonna Noble Other [employer] Other Encounters Encounter Date Encounter Type Care Provider Facility Start: 02-10-2024 End: 02-10-2024 ambulatory [facility] Work Phone: Start: 02-10-2024 End: 02-10-2024 Patient encounter procedure [facility] Physician [facility] Work Phone: Start: 06-07-2023 End: 06-07-2023 ambulatory Shonna Noble Other [employer] Other Start: 06-07-2023 Office outpatient vi sit 15 minutes Shonna Noble [facility] Start: 03-15-2023 End: 03-15-2023 ambulatory Shonna Noble Other [employer] Other Start: 03-15-2023 Office outpatient vi sit 15 minutes Shonna Noble [facility] Start: 02-11-2023 End: 02-11-2023 ambulatory Shonna Noble Other [employer] Other Start: 02-11-2023 Office outpatient vi sit 15 minutes Shonna Noble [facility] Start: 01-18-2023 End: 01-19-2023 ambulatory [facility] Facility:[facility] Start: 01-15-2023 End: 01-15-[address] TYSON GAUTAM . Facility:[facility] Start: 01-01-2023 End: 01-02-[address] TYSON GAUTAM . Facility:[facility] Start: 10-23-2022 End: 10-24-2022 [facility] Facility:[facility] Start: 10-08-2022 Gynecological examin ation normal Shonna Noble Other [employer] Other Start: 08-23-2022 [facility] Start: 08-22-2022 End: 08-23-2022 ambulatory [facility] Facility:[facility] Start: 07-25-2022 Adult health examination Yara Noble Other [employer] Other Start: 07-25-2022 End: 07-26-[address] SHONNA NOBLE Facility:[facility] Start: 02-27-[address] SHONNA NOBLE Facil ity:H1 Procedures Date Procedure Procedure Detail Performing Clinician Screening for malign ant neoplasm of breast Shonna Noble Other Screening for malign ant neoplasm of breast Shonna Noble Other Plan of Treatment Date Care Activity Detail Author Start: 02-10-2024 Patient referral [facility] Work Phone: Patient referral [facility] Work Phone: Payers Date Payer Category Payer Unknown [id number] 2.16.84 [id number] 1975 Unknown [id number] 2.16.84 [id number] 1975 Unknown [id number] 2.16.84 [id number] 1977 Unknown [id number] 2.16.84 [id number] 1977 Unknown [id number] 2.16.84 [id number] 1977 Unknown [id number] 2.16.84 [id number] 1977 Unknown [id number] 2.16.84 [id number] 1977 Unknown [id number] 2.16.84 [id number] 1957 Self-pay 1957 Unknown [id number] Social History Date Type Detail Facility Unknown if ever smoked [employer] Other Sex Assigned At Sex Assigned At Bir th [employer] Other Start: 1975 Sex Assigned At Female F [facility] Evaluation note 06-07-2023 Note Date & Type Note Facility 06-07-2023 Evaluation note Encounter Date Diagnosis Assessment Notes May, Overweight (BMI 25.0-29.9) (ICD-10 - E66.3) Last filled on 03/15 - discussed new pharmacy rules. BMI is 25 and she filled it in March. Unsure if [facility] can fill this. Pt expressed marilia harrell Discussed diet and exercise. May, Hyperthyroidism (ICD-10 - E05.90) Discussed labs and treatment with Dr. Matias [employer] Other Evaluation note 03-15-2023 Note Date & [...] index [BMI] 25.0-25.9, adult (ICD-10 - Z68.25) [employer] Other Evaluation note 02-11-2023 Note Date & [...] her to cut tablets in 1/2 initially. [employer] Other Evaluation note 02-11-2023 Note Date & [...] weight issues. Continue followup with his office. [employer] Other Evaluation note Note Date & Type Note Facility Evaluation note Diagnosis Onset Date Family history of colon cancer acute Screening for colon cancer [facility] Work Phone: History general Narrative - Reported Note Date & Type Note Facility History general Narrative - Reported Type Medical History seasonal allergies Medical History asthma Medical History infectious gastroenteritis Medical History myalgia Medical History intention tremor Medical History HPV infection Surgical History section Hospitalization History see surgical hx [employer] Other Hospital Discharge instructions Note Date & Type Note Facility Hospital Discharge instructions Ambulatory OrdersReferral to Gastroenterology Time Frame: 02/10/24, Location: None [facility] Work Phone: Summary Purpose Family History Relationship Condition Age at Onset Recorded Date/T karthik father Unknown Not Specified Hypertension Unknown Advance Directives Advance Directive Response Recorded Date/ Time Advance Directives No February 09 10:32am Chief Complaint and Reason for Visit Chief Complaint Sick-Sinuses Reason for Visit Family history of co donna cancer Screening for colon cancer Additional Source Comments INFORMATION SOURCE (unrecogn ized section and content) DATE CREATED AUTHOR 01/23/2023 [facility] REASON FOR VISIT (unrecogniz ed section and content) Hair Loss/ WeightCheck UpHai r Loss/ WeightMedication Discussion Care Teams (unrecognized sec tion and content) Team Status: Active Member Role Status Dates Shonna Noble MD Primary Care Provider Active Team Status: Inactive Member Role Status Dates Shonna Noble MD Primary Care Provide r, Attending Provider Active Start: February 10, 2024 End: February 10, 2024 Goals (unrecognized section and content) Goals may be documented in a n alternate section FOR RECORDS PERTAINING TO PATIENTS WHO ARE [...] BE BASED ON THE PRIMARY CLINICAL RECORDS. [facility] [employer] [facility]. provides no warranty or guarantee of the accuracy or completeness of information in this document.
--- OUTSIDE RECORDS SUMMARY | 2024-03-09 20:23 | XMS_ITS | CCD ---
Author Organization [facility] Care Team Providers Care Eating Disorder Specialist Name Role Phone ADRIEL AHMAD Attending Unavailable ANU, DR SHONNA Chong Primary Care Unavailable ADRIEL, AHMAD Admitting Unavailable [place], DR BEV Stallings Consulting Unavailable ZIEBHILARY, DR [...] KARASIK ., DR MEHTA Admitting Unavailabl e ANU, DR SHONNA Chong [...] physicia Propensity to adverse reactions 9 Comment:Done [employer] Other (1 source) Allergies Reconciled Propensity to adverse reactions Unknown [employer] Other Medications Current Medications Medication Drug Class(es) [...] 01-18-2023 FREE T3 2.54 pg/mlL Normal 2.18-3.98 [facility] Comment on above: Performed By: #### F T3, TSH #### [facility] [address] [address] [address] Celso Abraham FREE T4on 01-18-2023 Free T4 [Mass/Vol] 0.70 ng/dL Critically low 0.76-1.46 Th e [facility] Comment on above: Performed By: #### F T4 #### [facility] [address] [place] [address] Dr. Celso Abraham PAP ACOG PANEL 2: 30 to 65on 01-18-2023 . . Normal [facility] Comment on above: Result Comment: Perf ormed at: [facility] Performed By: #### C MP, TSH #### [facility] [address] [address] [address] Celso Abraham Age Gdln ACOG Testing 30-65 Normal [facility] Comment on above: Performed By: #### C MP, TSH #### [facility] [address] [place] [address] Dr. Celso Abraham DIAGNOSIS: Comment Normal [facility] Comment on above: Result Comment: NEGA TIVE FOR INTRAEPITHELIAL LESION OR MALIGNANCY. Performed at: [facility] Performed By: #### C MP, TSH #### [facility] [address] [place] [address] Dr. Celso Abraham HPV Aptima Negative Normal Negative [facility] Comment on above: Result Comment: This nucleic acid amplification test detects fourteen high-risk HPV types (16,18,31,33,35,39,45,51,52,56,58,59,66,68) without differentiation. Performed at: =G Performed By: #### C MP, TSH #### [facility] [address] [place] [address] Dr. Celso Abraham HPV Genotype Reflex Comment Normal [facility] Comment on above: Result Comment: Crit eria not met, HPV Genotype not performed. Performed at: [facility] Performed By: #### C MP, TSH #### [facility] [address] [place] [address] Dr. Celso Abraham Methodology: Comment Normal [facility] Comment on above: Result Comment: This liquid based ThinPrep(R) pap test was screened with the use of an image guided system. Performed at: [facility] Performed By: #### C MP, TSH #### [facility] [address] [place] [address] Dr. Celso Abraham Note: Comment Normal [facility] Comment on above: Result Comment: The Pap [...] Performed By: #### C MP, TSH #### [facility] [address] [place] [address] Dr. Celso Abraham Performed by: Comment Normal [facility] Comment on above: Result Comment: Savanna Lopez Corn Lab Technician (ASCP) Performed at: [facility] Performed By: #### C MP, TSH #### [facility] [address] [place] [address] Dr. Celso Abraham Specimen adequacy: Comment Normal [facility] Comment on above: Result Comment: Sati sfactory for evaluation. Endocervical and/or squamous metaplastic cells (endocervical component) are present. Performed at: [facility] Performed By: #### C MP, TSH #### [facility] [address] [place] [address] Dr. Celso Abraham TSHon 01-18-2023 TSH 0.687 uIU/mL Normal 0.358-3.740 [facility] Comment on above: Performed By: #### F T3, TSH #### [facility] [address] [place] [address] Dr. Celso Abraham MG MAMM SCREEN 3D NATI CADon 01-01-2023 MG MAMM SCREEN 3D NATI CAD Patient: ALLAN AVENDAÑO Exam Date: 01/01/2023 : 1975 Gender:F Ordering : DR TYSON GAUTAM . Admission #: [id number] Family : Order #: [id number] CLICK HERE TO VIEW EXAM RADIOLOGY REPORT [...] Treatments None Family Cancers None LOCATION: [facility] BREAST COMPOSITION: Heterogeneously dense,which may obscure small [...] M.D. on 01/02/2023 at 14:12 Normal [facility] THYROTROPIN RECEPTOR ABon Thyrotropin Receptor Ab, Serum 3.12 IU/L Critically high 0.00-1.75 [facility] Comment on above: Performed By: #### C MP, TSH #### [facility] [address] [address] [address] Celso Abraham FREE T3on 10-23-2022 FREE T3 2.19 pg/mlL Normal 2.18-3.98 [facility] Comment on above: Performed By: #### T SH, FT3, LIVER #### [facility] [address] [address] [address] Celso Abraham FREE T4on 10-23-2022 Free T4 [Mass/Vol] 0.72 ng/dL Critically low 0.76-1.46 [facility] Comment on above: Performed By: #### C MP, TSH #### [facility] [address] [address] [address] Celso Abraham LIVER PROFILEon 10-23-2022 Albumin [Mass/Vol] 3.6 g/dL Normal 3.4-5.0 [facility] Comment on above: Performed By: #### T SH, FT3, LIVER #### [facility] [address] [address] [address] Celso Abraham Albumin/Globulin [Mass ratio] 1.1 {ratio} Normal [facility] Comment on above: Performed By: #### T SH, FT3, LIVER #### [facility] [address] [address] [address] Celso Abraham ALP [Catalytic activity/Vol] 136 U/L Critically high 46-116 [facility] Comment on above: Performed By: #### T SH, FT3, LIVER #### [facility] [address] [address] [address] Celso Abraham ALT [Catalytic activity/Vol] 32 U/L Normal 14-59 [facility] Comment on above: Performed By: #### T SH, FT3, LIVER #### [facility] [address] [address] [address] Celso Abraham AST [Catalytic activity/Vol] 24 U/L Normal 15-37 [facility] Comment on above: Performed By: #### T SH, FT3, LIVER #### [facility] [address] [address] [address] Celso Abraham BILI, CONJUGATED 0.1 mg/dL Normal 0.0-0.2 [facility] Comment on above: Performed By: #### T SH, FT3, LIVER #### [facility] [address] [address] [address] Celso Abraham Bilirubin [Mass/Vol] 0.4 mg/dL Normal 0.2-1.0 [facility] Comment on above: Performed By: #### T SH, FT3, LIVER #### [facility] [address] [address] [address] Celso Abraham Globulin (S) [Mass/Vol] 3.4 g/dL Normal [facility] Comment on above: Performed By: #### T SH, FT3, LIVER #### [facility] [address] [address] [address] Celso Abraham Protein [Mass/Vol] 7.0 g/dL Normal 6.4-8.2 [facility] Comment on above: Performed By: #### T SH, FT3, LIVER #### [facility] [address] [place] [address] Dr. Celso Abraham TSHon 10-23-2022 TSH Qn m[IU]/L Critically low 0.358-3.740 [facility] Comment on above: Performed By: #### T SH, FT3, LIVER #### [facility] [address] [place] [address] Dr. Celso Abraham THYROID ANTIBODIESon 022 Thyroglobulin Antibody 62.7 IU/mL Critically high 0.0-0.9 [facility] Comment on above: Result Comment: Thyr oglobulin Antibody measured by Prudenc[employer] Methodology Performed By: #### C MP, TSH #### [facility] [address] [place] [address] Dr. Celso Abraham Thyroid Peroxidase (TPO) Ab 115 IU/mL Critically high 0-34 [facility] Comment on above: Performed By: #### C MP, TSH #### [facility] [address] [place] [address] Dr. Celso Abraham THYROTROPIN RECEPTOR ABon Thyrotropin Receptor Ab, Serum 7.58 IU/L Critically high 0.00-1.75 [facility] Comment on above: Performed By: #### T HYRABT #### [facility] [address] [place] [address] Dr. Celso Abraham NM THY SCAN W [...] by: BEV GOLDSTEIN Date: 2022-08-23 08:02 Normal [facility] FREE T3on 08-22-2022 FREE T3 7.90 pg/mlL Critically high 2.18-3.98 [facility] Comment on above: Performed By: #### C MP, TSH #### [facility] [address] [place] [address] Dr. Celso Abraham FREE T4on 08-22-2022 Free T4 [Mass/Vol] 2.01 ng/dL Critically high 0.76-1.46 [facility] Comment on above: Performed By: #### C MP, TSH #### [facility] [address] [place] [address] Dr. Celso Abraham LIVER PROFILEon 08-22-2022 Albumin [Mass/Vol] 3.4 g/dL Normal 3.4-5.0 [facility] Comment on above: Performed By: #### C MP, TSH #### [facility] [address] [place] [address] Dr. Celso Abraham Albumin/Globulin [Mass ratio] 1.0 {ratio} Normal [facility] Comment on above: Performed By: #### C MP, TSH #### [facility] [address] [place] [address] Dr. Celso Abraham ALP [Catalytic activity/Vol] 160 U/L Critically high 46-116 [facility] Comment on above: Performed By: #### C MP, TSH #### [facility] [address] [place] [address] Dr. Celso Abraham ALT [Catalytic activity/Vol] 34 U/L Normal 14-59 [facility] Comment on above: Performed By: #### C MP, TSH #### [facility] [address] [address] [address] Celso Abraham AST [Catalytic activity/Vol] 14 U/L Critically low 15-37 [facility] Comment on above: Performed By: #### C MP, TSH #### [facility] [address] [place] [address] Dr. Celso Abraham BILI, CONJUGATED 0.1 mg/dL Normal 0.0-0.2 [facility] Comment on above: Performed By: #### C MP, TSH #### [facility] [address] [place] [address] Dr. Celso Abraham Bilirubin [Mass/Vol] 0.2 mg/dL Normal 0.2-1.0 [facility] Comment on above: Performed By: #### C MP, TSH #### [facility] [address] [place] [address] Dr. Celso Abraham Globulin (S) [Mass/Vol] 3.4 g/dL Normal [facility] Comment on above: Performed By: #### C MP, TSH #### [facility] [address] [place] [address] Dr. Celso Abraham Protein [Mass/Vol] 6.8 g/dL Normal 6.4-8.2 [facility] Comment on above: Performed By: #### C MP, TSH #### [facility] [address] [place] [address] Dr. Celso Abraham TSHon 08-22-2022 TSH Qn m[IU]/L Critically low 0.358-3.740 [facility] Comment on above: Performed By: #### C MP, TSH #### [facility] [address] [place] [address] Dr. Celso Abraham US THYROIDon 08-22-2022 US [...] by: CHEMA ESPANA Date: 2022-08-22 16:07 Normal [facility] CERULOPLASMINon 07-26-2022 Ceruloplasmin 34.9 mg/dL Normal 19.0-39.0 [facility] Comment on above: Performed By: #### C EUROPL #### [facility] [address] [place] [address] Dr. Celso Abraham FREE T4on 07-25-2022 Free T4 [Mass/Vol] 2.34 ng/dL Critically high 0.76-1.46 [facility] Comment on above: Performed By: #### C MP, TSH #### [facility] [address] [place] [address] Dr. Celso Abraham PROF 14(COMP METB)on 022 Albumin [Mass/Vol] 3.8 g/dL Normal 3.4-5.0 [facility] Comment on above: Performed By: #### C MP, TSH #### [facility] [address] [place] [address] Dr. Celso Abraham Albumin/Globulin [Mass ratio] 1.1 {ratio} Normal [facility] Comment on above: Performed By: #### C MP, TSH #### [facility] [address] [place] [address] Dr. Celso Abraham ALP [Catalytic activity/Vol] 163 U/L Critically high 46-116 [facility] Comment on above: Performed By: #### C MP, TSH #### [facility] [address] [place] [address] Dr. Celso Abraham ALT [Catalytic activity/Vol] 41 U/L Normal 14-59 [facility] Comment on above: Performed By: #### C MP, TSH #### [facility] [address] [place] [address] Dr. Celso Abraham Anion gap [Moles/Vol] 13.4 mmol/L Normal [facility] Comment on above: Performed By: #### C MP, TSH #### [facility] [address] [address] [address] Celso Abraham AST [Catalytic activity/Vol] 21 U/L Normal 15-37 [facility] Comment on above: Performed By: #### C MP, TSH #### [facility] [address] [place] [address] Dr. Celso Abraham Bilirubin [Mass/Vol] 0.5 mg/dL Normal 0.2-1.0 [facility] Comment on above: Performed By: #### C MP, TSH #### [facility] [address] [place] [address] Dr. Celso Abraham Calcium [Mass/Vol] 9.8 mg/dL Normal 8.5-10.1 [facility] Comment on above: Performed By: #### C MP, TSH #### [facility] [address] [place] [address] Dr. Celso Abraham Chloride [Moles/Vol] 104 mmol/L Normal 98-107 [facility] Comment on above: Performed By: #### C MP, TSH #### [facility] [address] [place] [address] Dr. Celso Abraham CO2 [Moles/Vol] 24.9 mmol/L Normal 21.0-32.0 [facility] Comment on above: Performed By: #### C MP, TSH #### [facility] [address] [place] [address] Dr. Celso Abraham Creatinine [Mass/Vol] 0.67 mg/dL Normal 0.55-1.02 [facility] Comment on above: Performed By: #### C MP, TSH #### [facility] [address] [place] [address] Dr. Celso Abraham EGFR-AF QATARI >60 Normal >=60 [facility] Comment on above: Performed By: #### C MP, TSH #### [facility] [address] [place] [address] Dr. Celso Abraham EGFR-NON AF QATARI >60 Normal >=60 [facility] Comment on above: Performed By: #### C MP, TSH #### [facility] [address] [place] [address] Dr. Celso Abraham Globulin (S) [Mass/Vol] 3.6 g/dL Normal [facility] Comment on above: Performed By: #### C MP, TSH #### [facility] [address] [place] [address] Dr. Celso Abraham Glucose [Mass/Vol] 104 mg/dL Normal 74-106 [facility] Comment on above: Performed By: #### C MP, TSH #### [facility] [address] [place] [address] Dr. Celso Abraham Potassium [Moles/Vol] 4.3 mmol/L Normal 3.5-5.1 [facility] Comment on above: Performed By: #### C MP, TSH #### [facility] [address] [place] [address] Dr. Celso Abraham Protein [Mass/Vol] 7.4 g/dL Normal 6.4-8.2 [facility] Comment on above: Performed By: #### C MP, TSH #### [facility] [address] [place] [address] Dr. Celso Abraham Sodium [Moles/Vol] 138 mmol/L Normal 136-145 [facility] Comment on above: Performed By: #### C MP, TSH #### [facility] [address] [place] [address] Dr. Celso Abraham Urea nitrogen [Mass/Vol] 14.0 mg/dL Normal 7.0-18.0 [facility] Comment on above: Performed By: #### C MP, TSH #### [facility] [address] [place] [address] Dr. Celso Abraham Urea nitrogen/Creatinine [Mass ratio] 20.9 mg/mg Normal [facility] Comment on above: Performed By: #### C MP, TSH #### [facility] [address] [address] [address] Celso Abraham TSHon 07-25-2022 TSH Qn m[IU]/L Critically low 0.358-3.740 [facility] Comment on above: Performed By: #### C MP, TSH #### [facility] [address] [address] [address] Celso Abraham Vital Signs Date Time Vital Sign Value Performing Clinician Facility 02-10-2024 10:37-0400 Body height 158.75 cm [facility] 02-10-2024 10:37-0400 Body mass index (BMI) [Ratio] 27 kg/m2 [facility] 02-10-2024 10:37-0400 Body temperature 98 [degF] [facility] 02-10-2024 10:37-0400 Body weight 68.2 kg [facility] 02-10-2024 10:37-0400 Diastolic blood pressure 69 mm[Hg] [facility] 02-10-2024 10:37-0400 Heart rate 72 /min [facility] 02-10-2024 10:37-0400 Systolic blood pressure 103 mm[Hg] [facility] 06-07-2023 11:45-0400 Body height 158.75 cm Shonna Noble Other [email or web address] [facility] [employer] Other 06-07-2023 11:45-0400 Body mass index (BMI) [Ratio] 25.2 kg/m2 Shonna Noble Other [employer] Other 06-07-2023 11:45-0400 Body weight 63.5 kg Shonna Noble Other [employer] Other 06-07-2023 11:45-0400 Diastolic blood pressure 60 mm[Hg] Shonna Noble Other [employer] Other 06-07-2023 11:45-0400 Systolic blood pressure 99 mm[Hg] Shonna Noble Other [employer] Other 03-15-2023 10:00-0400 Body height 158.75 cm Shonna Noble Other [employer] Other 03-15-2023 10:00-0400 Body mass index (BMI) [Ratio] 25.92 kg/m2 Shonna Noble Other [employer] Other 03-15-2023 10:00-0400 Body weight 65.32 kg Shonna Noble Other [employer] Other 03-15-2023 10:00-0400 Diastolic blood pressure 58 mm[Hg] Shonna Noble Other [employer] Other 03-15-2023 10:00-0400 Systolic blood pressure 94 mm[Hg] Shonna Noble Other [employer] Other 02-11-2023 14:45-0400 Body height 158.75 cm Shonna Noble Other [employer] Other 02-11-2023 14:45-0400 Body mass index (BMI) [Ratio] 27.9 kg/m2 Shonna Noble Other [employer] Other 02-11-2023 14:45-0400 Body weight 70.31 kg Shonna Noble Other [employer] Other 02-11-2023 14:45-0400 Diastolic blood pressure 64 mm[Hg] Shonna Noble Other [employer] Other 02-11-2023 14:45-0400 SaO2% (BldA) [Mass fraction] 97 % Shonna Noble Other [employer] Other 02-11-2023 14:45-0400 Systolic blood pressure 98 mm[Hg] Shonna Noble Other [employer] Other Encounters Encounter Date Encounter Type Care Provider Facility Start: 02-10-2024 End: 02-10-2024 ambulatory [facility] Work Phone: Start: 02-10-2024 End: 02-10-2024 Patient encounter procedure [facility] Physician [facility] Work Phone: Start: 06-07-2023 End: 06-07-2023 ambulatory Shonna Noble Other [employer] Other Start: 06-07-2023 Office outpatient vi sit 15 minutes Shonna Noble [facility] Start: 03-15-2023 End: 03-15-2023 ambulatory Shonna Noble Other [employer] Other Start: 03-15-2023 Office outpatient vi sit 15 minutes Shonna Noble [facility] Start: 02-11-2023 End: 02-11-2023 ambulatory Shonna Noble Other [employer] Other Start: 02-11-2023 Office outpatient vi sit 15 minutes Shonna Noble [facility] Start: 01-18-2023 End: 01-19-2023 ambulatory [facility] Facility:[facility] Start: 01-15-2023 End: 01-15-[address] TYSON GAUTAM . Facility:[facility] Start: 01-01-2023 End: 01-02-[address] TYSON GAUTAM . Facility:[facility] Start: 10-23-2022 End: 10-24-2022 [facility] Facility:[facility] Start: 10-08-2022 Gynecological examin ation normal Shonna Noble Other [employer] Other Start: [facility]22 [facility] Start: 08-22-2022 End: 08-23-2022 ambulatory [facility] Facility:[facility]1 Start: 07-25-2022 Adult health examination Yara Noble Other [employer] Other Start: 07-25-2022 End: 07-26-[address] SHONNA NOBLE Facility:[facility]1 Start: 02-27-[address] SHONNA NOBLE Facil ity:H1 Procedures Date Procedure Procedure Detail Performing Clinician Screening for malign ant neoplasm of breast Shonna Noble Other Screening for malign ant neoplasm of breast Shonna Noble Other Plan of Treatment Date Care Activity Detail Author Start: 02-10-2024 Patient referral [facility] Work Phone: Patient referral [facility] Work Phone: Payers Date Payer Category Payer Unknown [id number] 2.16.84 [id number] 1975 Unknown [id number] 2.16.84 [id number] 1975 Unknown [id number] 2.16.84 [id number] 1975 Unknown [id number] 2.16.84 [id number] 1975 Unknown [id number] 2.16.84 [id number] 1977 Unknown [id number] 2.16.84 [id number] 1977 Unknown [id number] 2.16.84 [id number] 1977 Unknown [id number] 2.16.84 [id number] 1957 Self-pay 1957 Unknown [id number] Social History Date Type Detail Facility Unknown if ever smoked [employer] Other Sex Assigned At Sex Assigned At Bir th [employer] Other Start: 1975 Sex Assigned At Female F [facility] Evaluation note 06-07-2023 Note Date & Type Note Facility 06-07-2023 Evaluation note Encounter Date Diagnosis Assessment Notes May, Overweight (BMI 25.0-29.9) (ICD-10 - E66.3) Last filled on 03/15 - discussed new pharmacy rules. BMI is 25 and she filled it in March. Unsure if [facility] can fill this. Pt expressed marilia harrell Discussed diet and exercise. May, Hyperthyroidism (ICD-10 - E05.90) Discussed labs and treatment with Dr. Matias [employer] Other Evaluation note 03-15-2023 Note Date & [...] index [BMI] 25.0-25.9, adult (ICD-10 - Z68.25) [employer] Other Evaluation note 02-11-2023 Note Date & [...] her to cut tablets in 1/2 initially. [employer] Other Evaluation note 02-11-2023 Note Date & [...] weight issues. Continue followup with his office. [employer] Other Evaluation note Note Date & Type Note Facility Evaluation note Diagnosis Onset Date Family history of colon cancer acute Screening for colon cancer [facility] Work Phone: History general Narrative - Reported Note Date & Type Note Facility History general Narrative - Reported Type Medical History seasonal allergies Medical History asthma Medical History infectious gastroenteritis Medical History myalgia Medical History intention tremor Medical History HPV infection Surgical History section Hospitalization History see surgical hx [employer] Other Hospital Discharge instructions Note Date & Type Note Facility Hospital Discharge instructions Ambulatory OrdersReferral to Gastroenterology Time Frame: 02/10/24, Location: None [facility] Work Phone: Summary Purpose Family History [...] BE BASED ON THE PRIMARY CLINICAL RECORDS. [facility] [email or web address] [facility]. provides no warranty or guarantee of the accuracy or completeness of [phone] in [phone] [id number]
[2024-03-13 11:13] LABS: Age Gdln ACOG Testing Note (.); HPV Aptima Negative (Negative); IGP, Aptima HPV, rfx 16/18,45 Note (.)
== END 2024-03-09 20:10 | disposition home or self-care (01) ==
LOC: LAB 20:09
PROVIDERS: PCP Family Medicine; Visit Provider Obstetrics & Gynecology
DX: Z01.419 Encounter for gynecological examination (general) (routine) without abnormal findings (principal)
CPT/HCPCS: 87624; G0145

== ENCOUNTER 2024-05-18 10:58 | Outpatient (OUT) | payer BC, SELFPAY ==
--- OUTSIDE RECORDS SUMMARY | 2024-05-18 11:22 | XMS_ITS | CCD ---
Author Organization [facility] Care Team Providers Care Exchange Teller Name Role Phone ADRIEL, AHMAD Attending Unavailable ANU, DR SHONNA Chong Primary Care Unavailable ADRIEL, AHMAD Admitting Unavailable AKRON, DR BEV Stallings Consulting Unavailable ZIEBHILARY, DR CHEMA Navarro Consulting Unavailable ADRIEL, AHMAD Consulting Unavailable ANU, DR SHONNA Chong Attending Unavailable BRENNAN, DR SHONNA Chong Consulting Unavailable ANU, DR SHONNA Chong Primary Care Unavailable BRENNAN, DR SHONNA Chong Admitting Unavailable ADRIEL, AHMAD Admitting Unavailable ADRIEL, AHMAD Attending Unavailable ANU, DR SHONNA Chong Consulting Unavailable ANU, DR SHONNA Chong Primary Care Unavailable ADRIEL, AHMAD Admitting Unavailable ADRIEL, AHMILOD Attending Unavailable ANU, DR SHONNA Chong Primary Care Unavailable ADRIEL, AHMILOD Consulting Unavailable KARASISmita ., DR MEHTA Attending Unavailabl e ANU, DR SHONNA Chong Primary Care Unavailable KARASIK ., DR MEHTA Consulting Unavailabl e KARCARMENK ., DR MEHTA Admitting Unavailabl e ANU, DR SHONNA Chong Primary Care Unavailable BRENNAN, DR SHONNA Chong Admitting Unavailable BRENNAN, DR SHONNA Chong Attending Unavailable KARASIK ., DR MEHTA Attending Unavailabl e BRENNAN, DR SHONNA Chong Primary Care Unavailable KARASIK ., DR MEHTA Consulting Unavailabl e KARASIK ., DR MEHTA Admitting Unavailabl e HANG, DR CHEMA Navarro Consulting Unavailable ADRIEL, AHMAD Admitting Unavailable ADRIEL, AHMAD Attending Unavailable ANU, DR SHONNA Chong Primary Care Unavailable ADRIEL, AHMAD Consulting Unavailable Shonna Brennan Unavailable ANUPAMA VALVERDE Attending Unavailable MD Shonna Brennan Primary Care Provider [phone] DO Tiffany Perea Attending Provider Tiffany Perea Attending Unavailable Tiffany Perea Admitting Unavailable Shonna Brennan Primary Care Unavailable Allergies Allergy Classification Reported Allergen(s) Allergy Type Date of Onset Reaction(s) Facility (1 source) patient allergy list reviewed by nurse or physicia Propensity to adverse reactions 9 Comment:Done Sulmaq Other (1 source) Allergies Reconciled Propensity to adverse reactions Unknown Sulmaq Other Medications Current Medications Medication Drug Class(es) Dates Sig (Normalized) Sig (Original) methIMAzole 5 mg oral tablet (6 sources) Thyroid Hormone Synthesis Inhibitor Start: 02-10-2024 take 1 tablet by mouth once daily in the morning Methimazole Active 1 TAB PO Every morning February 10, 2024 12:00am FreeTextSi tablet Orally Once a day; Note: Source Status: Taking; Provider: Anu Kilpatrick ( ) take 1 tablet by deangelo th every twenty-four hours methIMAzole 5 MG 1 tablet Orally Once a day Active 24 hr metoprolol succinate 50 mg extended release oral tablet (6 sources) beta-Adrenergic Joey Start: 02-10-2024 take 1 tablet by mouth once daily in the morning Metoprolol Succinate Active 1 TAB PO Every morning February 10, 2024 12:00am FreeTextSig: TAKE 1 [...] a day for 30 days Feb, Active Completed/Discontinued Medications Medication Drug Class(es) Dates Sig (Normalized) Sig (Original) Azithromycin (2 sources) Macrolide Antimicrobial Start: 02-10-2024 End: 03-18-2024 Azithromycin Discontinued 0 PO .COMPLEX February 10, 2024 12:00am March 18, 2024 9:31am For 250 mg dose pack: take 500 mg today (day 1), then 250 mg for 4 days (days 2-5) PO Start: 02-10-2024 Azithromycin A ctive 0 PO .COMPLEX February 10, 2024 12:00am For 250 mg dose pack: take 500 mg today (day 1), then 250 mg for 4 days (days 2-5) PO benzonatate 200 mg oral capsule (2 sources) Non-narcotic Antitussive Start: 02-10-2024 End: 03-18-2024 Benzonatate Discontinued 200 MG PO 2-3 TIMES PER DAY February 10, 2024 12:00am March 18, 2024 9:31am Problems Active Problems Problem Classification Problem Date Documented Date Episodic/Chronic Allergic reactions (4 sources) Allergic contact dermatitis caused by plant material; Translations: [Allergic contact dermatitis due to plants, except food] Episodic Asthma (5 sources) Asthma; Translations: [Unspecified asthma, uncomplicated] Onset: 09-07-2014 Chronic Chronic obstructive pulmonary disease and bronchiectasis (2 sources) Bronchitis; Translations: [Bronchitis, not specified as acute or chronic] 02-10-2024 Episodic Genitourinary symptoms and ill-defined conditions (1 source) [...] conditions (not mental disorders or infectious disease) (18 sources) Other specified abnormal findings of blood [...] sinusitis] Onset: 01-07-2018 Episodic Residual codes; unclassified (2 sources) Family history of cancer of colon; Translations: [Family history of malignant neoplasm of digestive organs] 02-10-2024 Episodic Residual codes; unclassified (2 sources) Family history of malignant neoplasm of digestive [...] Test Name Value Interpretation Reference Range Facility HCG ( test) Mariluz d Ql (U)Ordered By: Tiffany Perea on 03-31-2024 HCG ( test) Ql (U) Negative [facility] HCG,Urineon 03-31-2024 Beta HCG ( test) Ql (U) Negative Normal [facility] Comment on above: Result Comment: PERF ORMED BY: [place] [address] PATHOLOGIST [employer] JAGDISH DENTON M.D. Performed By: #### U HCG #### [place] [address] [place] 03-31-2024 L Specimen: [id number] Received: 03/31/24 Status: SOULori Redwaine Num: [id number] Spec Type: Surgical Subm Dr: Tiffany Perea, DO Tissues: A Colon Biopsy (CECAL POLYP) B Colon Biopsy (TRANSV POLYP) Procedures: HE/4, Gross/Micro L4/2 Age/ Patient Sex Location Account Attending Physician Allan Avendaño 48/F [id number] Tiffany Perea DO SPEC NUM: [id number] RECD: 03/31/24 STATUS: YVONNE SHAIKHDwaine NUM: [id number] LIZETH: 03/31/24- SUBM DR: Tiffany Perea DO ENTERED: 03/31/24 [facility] DR: SPEC TYPE: Surgical DEPT: S ORDERED: HE/4, Gross/Micro L4/2 ORDERED: HE/4, Gross/Micro L4/2 Pathological Diagnosis A, cecal polyp biopsy: -Tubular adenoma in all fragments B, transverse colon polyp biopsy: -Small tubular adenomatous polyp Clinical Information Screening Gross Description A. Received in formalin, labeled with the patient's name, date of and cecal polyp are 3 delgado polypoid tissue fragments ranging from 0.3 x 0.3 x 0.1 cm to 0.2 x 0.2 x 0.1 cm, entirely submitted in A1. B. Received in formalin, labeled with the patient's name, date of and transverse polyp is a 0.3 x 0.2 x 0.1 cm delgado polypoid tissue fragment, entirely submitted in B1. -------- Specimen: [id number] Received: 03/31/24 Status: OMIDLori Tee Num: [id number] Spec Type: Surgical Subm Dr: Tiffany Perea DO Tissues: A Colon Biopsy (CECAL POLYP) B Colon Biopsy (TRANSV POLYP) Procedures: HE/4, Gross/Micro L4/2 -------- Patient: Allan Avendaño [id number] (Continued) -------- Specimen: [id number] Received: 03/31/24 (Continued) Signed (signature on file) Ally Abraham MD 04/01/24 1925 -------- Specimen: [id number] Received: 03/31/24 Status: YVONNE Tee Num: [id number] Spec Type: Surgical Subm Dr: Tiffany Perea DO Tissues: A Colon Biopsy (CECAL POLYP) B Colon Biopsy (TRANSV POLYP) Procedures: MARTHA/Yael Dubon/Oscar L4/2 -------- Patient: Allan Avendaño [id number] (Continued) -------- Specimen: [id number] Received: 03/31/24 (Continued) CPT Codes 14304W4 -------- -------- Specimen: [id number] Received: 03/31/24 Status: YVONNE Tee Num: [id number] Spec Type: Surgical Subm Dr: Tiffany Perea DO Tissues: A Colon Biopsy (CECAL POLYP) B Colon Biopsy (TRANSV POLYP) Procedures: MARTHA/Ling Gross/Micro L4/2 -------- Patient: Allan Avendaño [id number] (Continued) -------- Signed (signature on file) Chin-Abdi Abraham MD 04/01/241924 Normal [facility] Human papilloma virus 16+18+ 31+33+35+39+45+51+52+56+58+59+66+68 DNA [Presence] in [place] 03-09-2024 HPV 16+18+31+33+35+39+45 +51+52+56+58+59+66+6 8 DNA Probe+sig amp Ql (Cvx) Negative Negative [facility] Comment on above: This nucleic acid am plification test detects fourteen high- risk HPV types (16,18,31,33,35,39,45,51,52,56,58,59,66,68)without differentiation.Performed at: =G - [facility] [address] [id number] Director: Binta Fry MD, Phone: [phone] at: - [facility] [address] [id number] Director: Binta Fry MD, Phone: [phone] No Panel Informationon 03-09 HPV High Risk Other Comment Note . [facility] Comment on above: TESTS RESULT FLAG UN ITS REF RANGE LAB DI AGNOSIS: 02 NEGATIVE FOR INTRAEPITHELIAL LESION OR MALIGNANCY.Specimen adequacy: 02 Satisfactory for evaluation. Endocervical and/or squamous metaplastic cells (endocervical component) are present.Performed by: 02 Claire Landa Contour Path Tape Mill Operator (ASCP). 02Note: Note 02 The Pap smear is a screening test designed to aid in the detection of premalignant and malignant conditions of the uterine cervix. It is not a diagnostic procedure and should not be used as the sole means of detecting cervical cancer. Both false-positive and false-negative reports do occur.Test Methodology: Note 02 This liquid based ThinPrep(R) pap test was screened with the use of an image guided system.HPV Genotype Reflex Note 02 Criteria not met, HPV Genotype not performed. ----- FLAG LEGEND: L-Low Normal,H-High Normal,LL-Alert Low,HH-Alert High <-Panic Low,>-Panic High,A-Abnormal,AA-Critical Abnormal ---Performed at:02 WB [facility] [address] [id number] Binta Fry MD, Reference Lab Test Patient Age Note . [facility] Comment on above: TESTS RESULT FLAG UN ITS REF RANGE LAB Clinician Provided Cytology Information Source.............Cervix;Endocervix No. of containers..01 ThinPrep VialAge Roberto SHAVONNE Ivanna... 30-65 01 FLAG LEGEND: L-Low Normal,H-High Normal,LL-Alert Low,HH-Alert High <-Panic Low,>-Panic High,A-Abnormal,AA-Critical Abnormal ---Performed at:01 =G [facility] [place] [address] Binta Fry MD, FREE T3on 01-18-2023 FREE T3 2.54 pg/mlL Normal 2.18-3.98 [facility] Comment on above: Performed By: #### F T3, TSH #### [facility] [address] [place] [address] Dr. Celso Abraham FREE T4on 01-18-2023 Free T4 [Mass/Vol] 0.70 ng/dL Critically low 0.76-1.46 [facility] Comment on above: Performed By: #### F T4 #### [facility] [address] [place] [address] Dr. Celso Abraham PAP ACOG PANEL 2: 30 to 65on 01-18-2023 . . Normal [facility] Comment on above: Result Comment: Perf ormed at: [facility] Performed By: #### C MP, TSH #### [facility] [address] [place] [address] Dr. Celso Abraham Age Gdln ACOG Testing 30-65 Normal [facility] Comment on above: Performed By: #### C MP, TSH #### [facility] [address] [place] [address] Dr. Celso Abraham DIAGNOSIS: Comment Normal [facility] Comment on above: Result Comment: NEGA TIVE FOR INTRAEPITHELIAL LESION OR MALIGNANCY. Performed at: [facility] Performed By: #### C MP, TSH #### [facility] [address] [place] [address] Dr. Celso Abraham HPV Aptima Negative Normal Negative [facility] Comment on above: Result Comment: This nucleic acid amplification test detects fourteen high-risk HPV types (16,18,31,33,35,39,45,51,52,56,58,59,66,68) without differentiation. Performed at: =G Performed By: #### C MP, TSH #### [facility] [address] [address] [address] Celso Abraham HPV Genotype Reflex Comment Normal [facility] Comment on above: Result Comment: Crit eria not met, HPV Genotype not performed. Performed at: [facility] Performed By: #### C MP, TSH #### [facility] [address] [address] [address] Celso Abraham Methodology: Comment Normal [facility] Comment on above: Result Comment: This liquid based ThinPrep(R) pap test was screened with the use of an image guided system. Performed at: [facility] Performed By: #### C MP, TSH #### [facility] [address] [place] [address] Dr. Celso Abraham Note: Comment Normal [facility] Comment on above: Result Comment: The [...] Performed By: #### C MP, TSH #### [facility] [address] [place] [address] Dr. Celso Abraham Performed by: Comment Normal [facility] Comment on above: Result Comment: Savanna Lopez Contour Path Tape Mill Operator (ASCP) Performed at: [facility] Performed By: #### C MP, TSH #### [facility] [address] [address] [address] Celso Abraham Specimen adequacy: Comment Normal [facility] Comment on above: Result Comment: Sati sfactory for evaluation. Endocervical and/or squamous metaplastic cells (endocervical component) are present. Performed at: [facility] Performed By: #### C MP, TSH #### [facility] [address] [address] [address] Celso Abraham TSHon 01-18-2023 TSH 0.687 uIU/mL Normal 0.358-3.740 [facility] Comment on above: Performed By: #### F T3, TSH #### [facility] [address] [place], [place] [address] Dr. Celso Abraham MG MAMM SCREEN 3D NATI CADon 01-01-2023 MG MAMM SCREEN 3D NATI CAD Patient: ALLAN AVENDAÑO Exam Date: 01/01/2023 : 1975 Gender:F Ordering : DR TYSON GAUTAM . Admission #: [id number] Family : Order #: [id number] CLICK HERE TO VIEW EXAM RADIOLOGY REPORT [...] Treatments None Family Cancers None LOCATION: [facility] BREAST COMPOSITION: Heterogeneously dense,which may obscure [...] M.D. on 01/02/2023 at 14:12 Normal [facility] THYROTROPIN RECEPTOR ABon Thyrotropin Receptor Ab, Serum 3.12 IU/L Critically high 0.00-1.75 [facility] Comment on above: Performed By: #### C MP, TSH #### [facility] [address] [place], [place] [address] Dr. Celso Abraham FREE T3on 10-23-2022 FREE T3 2.19 pg/mlL Normal 2.18-3.98 [facility] Comment on above: Performed By: #### T SH, FT3, LIVER #### [facility] [address] [place] [address] Dr. Celso Abraham FREE T4on 10-23-2022 Free T4 [Mass/Vol] 0.72 ng/dL Critically low 0.76-1.46 [facility] Comment on above: Performed By: #### C MP, TSH #### [facility] [address] [place] [address] Dr. Celso Abraham LIVER PROFILEon 10-23-2022 Albumin [Mass/Vol] 3.6 g/dL Normal 3.4-5.0 [facility] Comment on above: Performed By: #### T SH, FT3, LIVER #### [facility] [address] [place] [address] Dr. Celso Abraham Albumin/Globulin [Mass ratio] 1.1 {ratio} Normal [facility] Comment on above: Performed By: #### T SH, FT3, LIVER #### [facility] [address] [place] [address] Dr. Celso Abraham ALP [Catalytic activity/Vol] 136 U/L Critically high 46-116 [facility] Comment on above: Performed By: #### T SH, FT3, LIVER #### [facility] [address] [place] [address] Dr. Celso Abraham ALT [Catalytic activity/Vol] 32 U/L Normal 14-59 [facility] Comment on above: Performed By: #### T SH, FT3, LIVER #### [facility] [address] [place] [address] Dr. Celso Abraham AST [Catalytic activity/Vol] 24 U/L Normal 15-37 [facility] Comment on above: Performed By: #### T SH, FT3, LIVER #### [facility] [address] [place] [address] Dr. Celso Abraham BILI, CONJUGATED 0.1 mg/dL Normal 0.0-0.2 [facility] Comment on above: Performed By: #### T SH, FT3, LIVER #### [facility] [address] [place] [address] Dr. Celso Abraham Bilirubin [Mass/Vol] 0.4 mg/dL Normal 0.2-1.0 [facility] Comment on above: Performed By: #### T SH, FT3, LIVER #### [facility] [address] [place] [address] Dr. Celso Abraham Globulin (S) [Mass/Vol] 3.4 g/dL Normal [facility] Comment on above: Performed By: #### T SH, FT3, LIVER #### [facility] [address] [place] [address] Dr. Celso Abraham Protein [Mass/Vol] 7.0 g/dL Normal 6.4-8.2 [facility] Comment on above: Performed By: #### T SH, FT3, LIVER #### [facility] [address] [place] [address] Dr. Celso Abraham TSHon 10-23-2022 TSH Qn m[IU]/L Critically low 0.358-3.740 [facility] Comment on above: Performed By: #### T SH, FT3, LIVER #### [facility] [address] [place] [address] Dr. Celso Abarham THYROID ANTIBODIESon 022 Thyroglobulin Antibody 62.7 IU/mL Critically high 0.0-0.9 [facility] Comment on above: Result Comment: Thyr oglobulin Antibody measured by [employer] Methodology Performed By: #### C MP, TSH #### [facility] [address] [place] [address] Dr. Celso Abraham Thyroid Peroxidase (TPO) Ab 115 IU/mL Critically high 0-34 [facility] Comment on above: Performed By: #### C MP, TSH #### [facility] [address] [place] [address] Dr. Celso Abraham THYROTROPIN RECEPTOR ABon Thyrotropin Receptor Ab, Serum 7.58 IU/L Critically high 0.00-1.75 [facility] Comment on above: Performed By: #### T HYRABT #### [facility] [address] [address] [address] Celso Abraham NM THY SCAN W [place] 08-23-20 NM THY SCAN W UPT EXAMINATION: NM [...] by: BEV GOLDSTEIN Date: 2022-08-23 08:02 Normal [facility] FREE T3on 08-22-2022 FREE T3 7.90 pg/mlL Critically high 2.18-3.98 [facility] Comment on above: Performed By: #### C MP, TSH #### [facility] [address] [place] [address] Dr. Celso Abraham FREE T4on 08-22-2022 Free T4 [Mass/Vol] 2.01 ng/dL Critically high 0.76-1.46 [facility] Comment on above: Performed By: #### C MP, TSH #### [facility] [address] [place] [address] Dr. Celso Abraham LIVER PROFILEon 08-22-2022 Albumin [Mass/Vol] 3.4 g/dL Normal 3.4-5.0 [facility] Comment on above: Performed By: #### C MP, TSH #### [facility] [address] [place] [address] Dr. Celso Abraham Albumin/Globulin [Mass ratio] 1.0 {ratio} Normal [facility] Comment on above: Performed By: #### C MP, TSH #### [facility] [address] [place] [address] Dr. Celso Abraham ALP [Catalytic activity/Vol] 160 U/L Critically high 46-116 [facility] Comment on above: Performed By: #### C MP, TSH #### [facility] [address] [address] [address] Celso Abraham ALT [Catalytic activity/Vol] 34 U/L Normal 14-59 [facility] Comment on above: Performed By: #### C MP, TSH #### [facility] [address] [address] [address] Celso Abraham AST [Catalytic activity/Vol] 14 U/L Critically low 15-37 [facility] Comment on above: Performed By: #### C MP, TSH #### [facility] [address] [address] [address] Celso Abraham BILI, CONJUGATED 0.1 mg/dL Normal 0.0-0.2 [facility] Comment on above: Performed By: #### C MP, TSH #### [facility] [address] [address] [address] Celso Abraham Bilirubin [Mass/Vol] 0.2 mg/dL Normal 0.2-1.0 [facility] Comment on above: Performed By: #### C MP, TSH #### [facility] [address] [address] [address] Celso Abraham Globulin (S) [Mass/Vol] 3.4 g/dL Normal [facility] Comment on above: Performed By: #### C MP, TSH #### [facility] [address] [address] [address] Celso Abraham Protein [Mass/Vol] 6.8 g/dL Normal 6.4-8.2 [facility] Comment on above: Performed By: #### C MP, TSH #### [facility] [address] [address] [address] Celso Abraham TSHon 08-22-2022 TSH Qn m[IU]/L Critically low 0.358-3.740 [facility] Comment on above: Performed By: #### C MP, TSH #### [facility] [address] [address] [address] Celos Abraham US THYROIDon 08-22-2022 US THYROID EXAMINATION: [...] by: CHEMA ESPANA Date: 2022-08-22 16:07 Normal [facility] CERULOPLASMINon 07-26-2022 Ceruloplasmin 34.9 mg/dL Normal 19.0-39.0 [facility] Comment on above: Performed By: #### C EUROPL #### [facility] [address] [place] [address] Dr. Celso Abraham FREE T4on 07-25-2022 Free T4 [Mass/Vol] 2.34 ng/dL Critically high 0.76-1.46 [facility] Comment on above: Performed By: #### C MP, TSH #### [facility] [address] [place] [address] Dr. Celso Abraham PROF 14(COMP METB)on 022 Albumin [Mass/Vol] 3.8 g/dL Normal 3.4-5.0 [facility] Comment on above: Performed By: #### C MP, TSH #### [facility] [address] [place] [address] Dr. Celso Abraham Albumin/Globulin [Mass ratio] 1.1 {ratio} Normal [facility] Comment on above: Performed By: #### C MP, TSH #### [facility] [address] [place] [address] Dr. Celso Abraham ALP [Catalytic activity/Vol] 163 U/L Critically high 46-116 [facility] Comment on above: Performed By: #### C MP, TSH #### [facility] [address] [address] [address] Celso Abraham ALT [Catalytic activity/Vol] 41 U/L Normal 14-59 [facility] Comment on above: Performed By: #### C MP, TSH #### [facility] [address] [address] [address] Celso Abraham Anion gap [Moles/Vol] 13.4 mmol/L Normal [facility] Comment on above: Performed By: #### C MP, TSH #### [facility] [address] [address] [address] Celso Abraham AST [Catalytic activity/Vol] 21 U/L Normal 15-37 [facility] Comment on above: Performed By: #### C MP, TSH #### [facility] [address] [address] [address] Celso Abraham Bilirubin [Mass/Vol] 0.5 mg/dL Normal 0.2-1.0 [facility] Comment on above: Performed By: #### C MP, TSH #### [facility] [address] [place] [address] Dr. Celso Abraham Calcium [Mass/Vol] 9.8 mg/dL Normal 8.5-10.1 [facility] Comment on above: Performed By: #### C MP, TSH #### [facility] [address] [place] [address] [address] Celso Abraham Chloride [Moles/Vol] 104 mmol/L Normal 98-107 [facility] Comment on above: Performed By: #### C MP, TSH #### [facility] [address] [address] [address] Celso Abraham CO2 [Moles/Vol] 24.9 mmol/L Normal 21.0-32.0 [facility] Comment on above: Performed By: #### C MP, TSH #### [facility] [address] [address] [address] Celso Abraham Creatinine [Mass/Vol] 0.67 mg/dL Normal 0.55-1.02 [facility] Comment on above: Performed By: #### C MP, TSH #### [facility] [address] [address] [address] Celso Abraham EGFR-AF ERITREAN >60 Normal >=60 [facility] Comment on above: Performed By: #### C MP, TSH #### [facility] [address] [address] [address] Celso Abraham EGFR-NON AF ERITREAN >60 Normal >=60 [facility] Comment on above: Performed By: #### C MP, TSH #### [facility] [address] [address] [address] Celso Abraham Globulin (S) [Mass/Vol] 3.6 g/dL Normal [facility] Comment on above: Performed By: #### C MP, TSH #### [facility] [address] [address] [address] Celso Abraham Glucose [Mass/Vol] 104 mg/dL Normal 74-106 [facility] Comment on above: Performed By: #### C MP, TSH #### [facility] [address] [address] [address] Celso Abraham Potassium [Moles/Vol] 4.3 mmol/L Normal 3.5-5.1 [facility] Comment on above: Performed By: #### C MP, TSH #### [facility] [address] [address] [address] Celso Abraham Protein [Mass/Vol] 7.4 g/dL Normal 6.4-8.2 [facility] Comment on above: Performed By: #### C MP, TSH #### [facility] [address] [address] [address] Celso Abraham Sodium [Moles/Vol] 138 mmol/L Normal 136-145 [facility] Comment on above: Performed By: #### C MP, TSH #### [facility] [address] [address] [address] Celso Abraham Urea nitrogen [Mass/Vol] 14.0 mg/dL Normal 7.0-18.0 [facility] Comment on above: Performed By: #### C MP, TSH #### [facility] [address] [address] [address] Celso Abraham Urea nitrogen/Creatinine [Mass ratio] 20.9 mg/mg Normal [facility] Comment on above: Performed By: #### C MP, TSH #### [facility] [address] [address] [address] Celso Abraham TSHon 07-25-2022 TSH Qn m[IU]/L Critically low 0.358-3.740 [facility] Comment on above: Performed By: #### C MP, TSH #### [facility] [address] [address] [address] Celso Abraham Vital Signs Date Time Vital Sign Value Performing Clinician Facility 03-31-2024 09:26-0400 Diastolic blood pressure 51 mm[Hg] MD Shonna Brennan Work Phone: [facility] 03-31-2024 09:26-0400 Heart rate 53 /min MD Shonna Brennan Work Phone: [facility] 03-31-2024 09:26-0400 Respiratory rate 16 /min MD Shonna Brennan Work Phone: [facility] 03-31-2024 09:26-0400 SaO2% (BldA) [Mass fraction] 99 % MD Shonna Brennan Work Phone: [facility] 03-31-2024 09:26-0400 Systolic blood pressure 101 mm[Hg] MD Shonna Brennan Work Phone: [facility] 03-31-2024 07:06-0400 Body height 157.48 cm MD Shonna Brennan Work Phone: [facility] 03-31-2024 07:06-0400 Body weight 70 kg MD Shonna Brennan Work Phone: [facility] 02-10-2024 10:37-0400 Body height 158.75 cm [facility] 02-10-2024 10:37-0400 Body mass index (BMI) [Ratio] 27 kg/m2 [facility] 02-10-2024 10:37-0400 Body temperature 98 [degF] [facility] 02-10-2024 10:37-0400 Body weight 68.2 kg [facility] 02-10-2024 10:37-0400 Diastolic blood pressure 69 mm[Hg] [facility] 02-10-2024 10:37-0400 Heart rate 72 /min [facility] 02-10-2024 10:37-0400 Systolic blood pressure 103 mm[Hg] [facility] 06-07-2023 11:45-0400 Body height 158.75 cm Shonna Brennan Other [facility] [employer] Other 06-07-2023 11:45-0400 Body mass index (BMI) [Ratio] 25.2 kg/m2 Shonna Brennan Other [facility] [employer] Other 06-07-2023 11:45-0400 Body weight 63.5 kg Shonna Brennan Other [facility] [employer] Other 06-07-2023 11:45-0400 Diastolic blood pressure 60 mm[Hg] Shonna Brennan Other [facility] Other 06-07-2023 11:45-0400 Systolic blood pressure 99 mm[Hg] Shonna Brennan Other [facility] [employer] Other 03-15-2023 10:00-0400 Body height 158.75 cm Shonna Brennan Other [facility] Other 03-15-2023 10:00-0400 Body mass index (BMI) [Ratio] 25.92 kg/m2 Shonna Brennan Other [facility] [employer] Other 03-15-2023 10:00-0400 Body weight 65.32 kg Shonna Brennan Other [facility] Other 03-15-2023 10:00-0400 Diastolic blood pressure 58 mm[Hg] Shonna Brennan Other [facility] Other 03-15-2023 10:00-0400 Systolic blood pressure 94 mm[Hg] Shonna Brennan Other [facility] Other 02-11-2023 14:45-0400 Body height 158.75 cm Shonna Brennan Other [facility] Other 02-11-2023 14:45-0400 Body mass index (BMI) [Ratio] 27.9 kg/m2 Shonna Brennan Other [facility] Other 02-11-2023 14:45-0400 Body weight 70.31 kg Shonna Brennan Other [facility] Other 02-11-2023 14:45-0400 Diastolic blood pressure 64 mm[Hg] Shonna Brennan Other [facility] Other 02-11-2023 14:45-0400 SaO2% (BldA) [Mass fraction] 97 % Shonna Brennan Other [facility] Other 02-11-2023 14:45-0400 Systolic blood pressure 98 mm[Hg] Shonna Brennan Other [facility] Other Encounters Encounter Date Encounter Type Care Provider Facility Start: 03-31-2024 End: 03-31-2024 ambulatory Tiffany Brit Facility:[facility] Start: 03-31-2024 Non-patient / Non-visit MD Lelo Brennan Work Phone: [facility] G[facility] Work Phone: Start: 03-31-2024 End: 03-31-2024 Admission to same day surgery center MD Shonna Brennan Work Phone: [facility] Work Phone: Start: 03-31-2024 End: 03-31-2024 ambulatory MD Shonna Brennan Work Phone: [facility] Work Phone: Start: 03-09-2024 End: 03-09-2024 ambulatory ANUPAMA VALVERDE Not Available Start: 03-09-2024 Non-patient / Non-visit MD Lelo Brennan Work Phone: [facility] [employer] Work Phone: Start: 02-10-2024 End: 02-10-[address] [facility] Work Phone: Start: 02-10-2024 End: 02-10-2024 Patient encounter procedure [facility] Work Phone: Start: 06-07-2023 End: 06-07-2023 ambulatory Shonna Brennan Other [facility] Other Start: 06-07-2023 Office outpatient vi sit 15 minutes Shonna Brennan [facility] Start: 03-15-2023 End: 03-15-2023 ambulatory Shonna Brennan Other [facility] Other Start: 03-15-2023 Office outpatient vi sit 15 minutes Shonna Brennan [facility] Start: 02-11-2023 End: 02-11-2023 ambulatory Shonna Brennan Other [id number] Other Start: 02-11-2023 Office outpatient vi sit 15 minutes Shonna Brennan [facility] Start: 01-18-2023 End: 01-19-2023 ambulatory NORRIS MOREL Facility:[facility] Start: 01-15-2023 End: 01-15-[address] TYSON GAUTAM . Facility:[facility] Start: 01-01-2023 End: 01-02-[address] TYSON GAUTAM . Facility:[facility] Start: 10-23-2022 End: 10-24-2022 ambulatory ALEX BEAVERSGH Facility:[facility] Start: 10-08-2022 Gynecological examination normal Shonna Brennan Other [facility] Other Start: [facility]22 [facility] Start: 08-22-2022 End: 08-23-2022 ambulatory NORRIS MOREL Facility:[facility] Start: 07-25-2022 Adult health examination Shonna Brennan Other [facility] Other Start: 07-25-2022 End: 07-26-[address] SHONNA BRENNAN Facility:[facility] Start: 02-27-[address] SHONNA BRENNAN Facil ity:[facility] Procedures Date Procedure Procedure Detail Performing Clinician Start: 03-31-2024 Screening colonoscopy M D Shonna Brennan Work Phone: Screening for malign ant neoplasm of breast Sohnna Brennan Other Screening for malign ant neoplasm of breast Shonna Brennan Other Plan of Treatment Date Care Activity Detail Author Start: 03-31-2024 [facility] Start: 02-10-2024 Patient referral [facility] Work Phone: Patient Education Colon polyps H emorrhoids (DC) Know your [facility] Work Phone: Patient referral [facility] Work Phone: Payers Date Payer Category Payer Unknown [id number] 2.16.84 [id number] 1975 Unknown [id number] 2.16.84 [id number] 1977 Unknown [id number] 2.16.84 [id number] 1977 Unknown [id number] 2.16.84 [id number] 1977 Unknown [id number] 2.16.84 [id number] 1977 Unknown [id number] 2.16.84 [id number] 1977 Unknown [id number] 2.16.84 [id number] 1977 Unknown [id number] 2.16.84 [id number] 1977 Unknown [id number] 2.16.84 [id number] 1957 Self-pay 1957 Unknown [id number] Unknown [id number] 2.16.8 [id number] Social History Date Type Detail Facility Unknown if ever smoked [facility] Other Sex Assigned At Sex Assigned At Bir th [facility] Other Start: 1975 Sex Assigned At Female F [facility] Start: 03-31-2024 Tobacco smoking status NHIS Never smoked tobacco (finding) [facility] Goals Date Patient Goal Desired Activity /State Procedure note 03-31-2024 Note Date & Type Note Facility 03-31-2024 Procedure note [facility] Evaluation note 06-07-2023 Note Date & Type Note Facility 06-07-2023 Evaluation note Encounter Date Diagnosis Assessment Notes May, Overweight (BMI 25.0-29.9) (ICD-10 - E66.3) Last filled on 03/15 - discussed new pharmacy rules. BMI is 25 and she filled it in March. Unsure if [facility] can fill this. Pt expressed marilia harrell Discussed diet and exercise. May, Hyperthyroidism (ICD-10 - E05.90) Discussed labs and treatment with Dr. Morel [facility] Other Evaluation note 03-15-2023 Note Date & [...] index [BMI] 25.0-25.9, adult (ICD-10 - Z68.25) [facility] Other Evaluation note 02-11-2023 Note Date & [...] her to cut tablets in 1/2 initially. [facility] Other Evaluation note 02-11-2023 Note Date & [...] she is under the care of Dr. Morel for this problem, this bears a component in her hair and weight issues. Continue followup with his office. [facility] Other Evaluation note Note Date & Type Note Facility Evaluation note Diagnosis Onset Date Family history of colon cancer acute Screening for colon cancer a [facility] Work Phone: Evaluation note Note Date & Type Note Facility Evaluation note Diagnosis Onset Date Bronchitis acute Family history of colon cancer acute Screening for colon cancer a [facility] Work Phone: History and physical note Note Date & Type Note Facility History and physical note Note Date/Time March 31, 2024 8:07a m [facility] [address] [place] [address] Gastroenterology H&P Signed Patient: Allan Avendaño MR#: [id number] : 1975 Acct:[id number] Age/Sex: 48 / F Adm Date: 4 Loc: Room: Type: [facility] Attending Dr: Tiffany Perea DO Copies to: DO Shonna Hernandez MD~ Date of Service: 03/31/2024 HISTORY & PHYSICAL: Patient's history with special attention to the cardiovascular, pulmonary systems and the current problem was reviewed with the patient immediately prior to the procedure. Present medications and doses reviewed in the EMR. Allergies and pertinent laboratory tests were also reviewedat this time in the EMR. The physical examination, as below, was then performed. Indication, assessment and HPI: 48-year-old female who presents for screening colonoscopy for family history of colon cancer in multiple second-degree relatives (maternal aunt, first cousin on maternal side). No prior colonoscopy Family history of GI malignancy? Maternal aunt, degree cousin on her mom side PHYSICAL EXAMINATION General appearance: cooperative, NAD Skin: No jaundice, no rash or lesions Head: NCAT Eyes: Anicteric Neck: Supple Lungs: Normal respiratory effort, no use of accessory muscles Abdomen: Soft, nondistended Neuro: No focal deficits, Ox3. REVIEW OF SYSTEMS Constitutional: Denies malaise, fevers Cardiovascular: Denies chest pain, palpitations Respiratory: Denies shortness of breath, wheezing Gastrointestinal: As per HPI Genitourinary: Denies dysuria, polyuria Musculoskeletal: Denies joint swelling, joint stiffness Neurological: Denies confusion, numbness, tingling Endocrine: Denies fatigue Written informed consent obtained from the patient. Risks (including but not limited to perforation, infection, bloating, bleeding, need for emergent surgeryand loss of life), benefits and alternatives explained and questions answered. The patient verbalized understanding. Based on history patient is an appropriate candidate for the procedure. Tiffany Perea DO Documented By: Tiffany Perea DO 03/31/24 0807 Signed By: <Electronically signed by Tiffany Perea DO> 03/31/24 0834 [facility] Work Phone: History general Narrative - Reported Note Date & Type Note Facility History general Narrative - Reported Type Medical History seasonal allergies Medical History asthma Medical History infectious gastroenteritis Medical History myalgia Medical History intention tremor Medical History HPV infection Surgical History section Hospitalization History see surgical hx [facility] [employer] Other Hospital Discharge instructions Note Date & Type Note Facility Hospital Discharge instructions Ambulatory OrdersReferral to Gastroenterology Time Frame: 02/10/24, Location: None Selected [facility] Work Phone: Summary Purpose Family History No Family History Records Found Relationship Condition Age at Onset Recorded Date/T karthik father Unknown Not Specified Hypertension Unknown Relationship Condition Age at Onset Recorded Date/T karthik father Unknown Peripheral vascular disease Unknown Not Specified Hypertension Unknown Advance Directives No Advanced Directives Records Found Advance Directive Response Recorded Date/ Time Advance Directives No February 09 10:32am Chief Complaint and Reason for Visit Chief Complaint Sick-Sinuses Reason for Visit Family history of co robles cancer Screening for colon cancer Chief Complaint Sick-Sinuses Screening Screening Reason for Visit Bronchitis Family history of colon cancer Screening for colon cancer Additional Source Comments INFORMATION SOURCE (unrecogn ized section and content) DATE CREATED AUTHOR 01/23/2023 [facility] DATE CREATED AUTHOR AUTHOR'S ORGANIZ ATION 03/10/2024 [facility] EPIC DATE CREATED AUTHOR AUTHOR'S ORGANIZ ATION 04/05/2024 [facility] REASON FOR VISIT (unrecogniz ed section and content) Hair Loss/ WeightCheck UpHai r Loss/ WeightMedication Discussion Care Teams (unrecognized sec tion and content) Team Status: Active Member Role Status Dates Shonna Brennan MD Primary Care Provider Active Team Status: Inactive Member Role Status Dates Shonna Brennan MD Primary Care Provide r, Attending Provider Active Start: February 10, 2024 End: February 10, 2024 Team Status: Active Member Role Status Dates Shonna Brennan MD Primary Care Provider Active Start: March 09, 2024 Merrill Amaya Attending Provider Active Start: [facility] 2023 Team Status: Inactive Member Role Status Dates Shonna Brennan MD Primary Care Provider Active Start: March 31, 2024 End: March 31, 2024 Tiffany Perea DO Attending Provider Active St art: March 31, 2024 End: March 31, 2024 Team Status: Active Member Role Status Dates Shonna Brennan MD Primary Care Provider Active Start: March 31, 2024 Tiffany Perea DO Attending Provider, Other Provider Active Start: March 31, 2024 Goals (unrecognized section and content) Goals may be documented in a n alternate section (unrecognized sect ion and content) No Status Records Found FOR RECORDS PERTAINING TO PATIENTS WHO ARE [...] BE BASED ON THE PRIMARY CLINICAL RECORDS. [employer] provides no warranty or guarantee of the accuracy or completeness of information in this document.
[2024-05-18 12:15] LABS: Free T4 0.85 ng/dL (0.76-1.46)
[2024-05-18 12:17] LABS: Alanine Aminotransferase 22 U/L (14-59); Albumin Globulin Ratio 1.1; Albumin Level 3.9 g/dL (3.4-5.0); Alkaline Phosphatase 65 U/L (46-116); Aspartate Amino Transferase 20 U/L (15-37); Bilirubin Direct 0.1 mg/dL (0.0-0.2); Bilirubin Total 0.5 mg/dL (0.2-1.0); Free T3 2.57 pg/mL (2.18-3.98); Globulin 3.4 g/dL; Thyroid Stimulating Hormone 1.716 uIU/mL (0.358-3.740); Total Protein 7.3 g/dL (6.4-8.2)
== END 2024-05-18 10:59 | disposition home or self-care (01) ==
LOC: LAB 10:59
PROVIDERS: PCP Family Medicine; Visit Provider Internal Medicine
DX: E05.90 Thyrotoxicosis, unspecified without thyrotoxic crisis or storm (principal); E05.00 Thyrotoxicosis with diffuse goiter without thyrotoxic crisis or storm
CPT/HCPCS: 36415; 80076; 84439; 84443; 84481

== ENCOUNTER 2024-11-20 09:35 | Outpatient (OUT) | payer BC, SELFPAY ==
[2024-11-20 11:36] LABS: Free T4 0.87 ng/dL (0.76-1.46)
[2024-11-20 11:43] LABS: Free T3 2.22 pg/mL (2.18-3.98); Thyroid Stimulating Hormone 1.823 uIU/mL (0.358-3.740)
== END 2024-11-20 09:36 | disposition home or self-care (01) ==
LOC: LAB 09:36
PROVIDERS: PCP Family Medicine; Visit Provider Internal Medicine
DX: E05.90 Thyrotoxicosis, unspecified without thyrotoxic crisis or storm (principal); E05.00 Thyrotoxicosis with diffuse goiter without thyrotoxic crisis or storm
CPT/HCPCS: 36415; 84439; 84443; 84481

== ENCOUNTER 2025-01-25 08:50 | Outpatient (OUT) | payer BC, SELFPAY ==
--- NOTE | 2025-01-25 08:53 | MM_ITS ---
Patient Name: ALLAN AVENDAÑO MR#: [id number] : 1975 Exam Date: 01/25/2025 Ordering Doctor: DR Merrill Amaya . RADIOLOGY REPORT PROCEDURE: MM TOMOSYNTHESIS SCREENING BI COMPARISON: MM TOMOSYNTHESIS SCREENING BI, 01/23/2024. MG MAMM SCREEN 3D NATI CAD, 01/01/2023. MG MAMM SCREEN 3D NATI CAD, 12/22/2021. MG MAMM SCREEN NATI W CAD, 11/26/2017. INDICATIONS: Screening Calculator Name NCI Breast Cancer Risk Assessment Tool 5 Year Breast Cancer Risk 0.80% Lifetime Breast Cancer Risk 8.40% Personal Breast Cancer No Personal Ovarian Cancer No Treatments None Family Cancers None LOCATION: [facility] BREAST COMPOSITION: The breasts are heterogeneously dense,which may obscure small masses. FINDINGS: DIAGNOSTIC CATEGORY 1--NEGATIVE. RIGHT BREAST: No significant suspicious finding. LEFT BREAST: No significant suspicious finding. RECOMMENDATIONS: ROUTINE MAMMOGRAM AND CLINICAL EVALUATION IN 12 MONTHS. PLEASE NOTE: A NORMAL MAMMOGRAM DOES NOT EXCLUDE THE POSSIBILITY OF BREAST CANCER. A CLINICALLY SUSPICIOUS PALPABLE LUMP SHOULD BE BIOPSIED. Dictated by: Jesus Linares DO on 01/25/2025 at 15:43 Approved by: Jesus Linares DO on 01/25/2025 at 15:44
== END 2025-01-25 08:51 | disposition home or self-care (01) ==
LOC: MAMMO 08:50
PROVIDERS: PCP Family Medicine; Visit Provider Obstetrics & Gynecology
DX: Z12.31 Encounter for screening mammogram for malignant neoplasm of breast (principal)
CPT/HCPCS: 77063; 77067

== ENCOUNTER 2025-04-28 12:31 | Outpatient (REF) | payer BC, SELFPAY ==
--- OUTSIDE RECORDS SUMMARY | 2025-04-28 09:00 | XMS_ITS | Encounter Summary ---
Author Organization [facility] Address [address] [place] [address] Care Team Providers Care Police Matron Name Role Phone Shonna Noble MD Primary Care Provider [phone] Reason for Visit * Reason Comments Gynecologic Exam Encounter Details Date Type Department Care Team (Late st Contact Info) Description 04/28/2025 9:00 AM EDT Office Visit [facility] [address] [place] [address] Elli Harris PA [address] [place], [id number] Well woman exam with routine gynecological exam Social History Tobacco Use Types Packs/Day Years Used Date Smoking Tobacco: Never Smokeless Tobacco: Never Alcohol Use Standard Drinks/Week Comments Yes 4 (1 standard drink = 0.6 oz pur e alcohol) Comments No Sex and Gender Information Value Date Recorded Sex Assigned at Not on file Legal Sex Female 11:04 AM EDT Gender Identity Not on file Sexual Orientation Not on file documented as of this encounter Last Filed Vital Signs Vital Sign Reading Time Taken Comments Blood Pressure 118/72 04/28/2025 9:02 AM EDT Pulse - - Temperature - - Respiratory Rate - - Oxygen Saturation - - Inhaled Oxygen Concentration - - Weight 65.3 kg (144 lb) 04/28/2025 9:02 AM EDT Height - - Body Mass Index 26.34 11/26/2024 9:10 AM EST documented in this encounter Progress Notes * Debra Staples MA - 04/28/2025 9:00 AM EDT Reason for Appointment: Patient ID: Loyda Maravilla is a 49 y.o. female who presents for Gynecologic Exam Patient presents today for Annual Exam. MEDICATIONS Current Outpatient Medications Medication Instructions methIMAzole (TAPAZOLE) 5 mg, Oral, Daily metoprolol succinate XL (TOPROL-XL) 50 mg, Daily ALLERGIES No Known Allergies PROBLEMS Active Ambulatory Problems Diagnosis Date Noted Palpitations 10/22/2024 Tremor, unspecified 10/22/2024 Thyrotoxicosis with diffuse goiter without thyrotoxic crisis or storm 10/22/2024 Thyrotoxicosis, unspecified without thyrotoxic crisis or storm 10/22/2024 Resolved Ambulatory Problems Diagnosis Date Noted No Resolved Ambulatory Problems Past Medical History: Diagnosis Date Acute asthma (HCC) Allergic contact dermatitis due to plant Allergic rhinitis, seasonal BMI 27.0-27.9,adult Breast cancer screening by mammogram Encounter for gynecological examination (general) (routine) without abnormal findings Graves disease Hair loss HPV in female Low serum thyroid stimulating hormone (TSH) Seasonal allergies HISTORY PAST MEDICAL HISTORY SOCIAL HISTORY Past Medical History: Diagnosis Date Acute asthma (HCC) Allergic contact dermatitis due to plant Allergic rhinitis, seasonal BMI 27.0-27.9,adult Breast cancer screening by mammogram Encounter for gynecological examination (general) (routine) without abnormal findings Graves disease Hair loss HPV in female Low serum thyroid stimulating hormone (TSH) Palpitations Seasonal allergies Thyrotoxicosis with diffuse goiter without thyrotoxic crisis or storm Thyrotoxicosis, unspecified without thyrotoxic crisis or storm Tremor, unspecified Social History Tobacco Use Smoking status: Never Smokeless tobacco: Never Substance Use Topics Alcohol use: Yes Alcohol/week: 4.0 standard drinks of alcohol Types: 4 Cans of beer per week Drug use: Never FAMILY HISTORY Family History Problem Relation Name Age of Onset Hypertension Mother Aortic aneurysm Father AAA-COD Breast cancer Mother's Sister Ovarian cancer Mother's Sister Cervical cancer Mother's Sister SURGICAL HISTORY Past Surgical History: Procedure Laterality Date SECTION, LOW TRANSVERSE x2 REVIEW OF SYSTEMS Review of Systems: Review of Systems Constitutional: Negative. HENT: Negative. Eyes: Negative. Respiratory: Negative. Cardiovascular: Negative. Gastrointestinal: Negative. Genitourinary: Negative. Musculoskeletal: Negative. Skin: Negative. Neurological: Negative. All other systems reviewed and are negative. Hematological: Negative. Endocrine: Negative. Allergic/Immunologic: Negative. OBJECTIVE Objective: Physical Exam Constitutional: Appearance: Normal appearance. She is well-developed. Genitourinary: Vulva normal. Breasts: Breasts are soft. Right: Normal. Left: Normal. Cardiovascular: Rate and Rhythm: Normal rate and regular rhythm. Pulmonary: Effort: Pulmonary effort is normal. Breath sounds: Normal breath sounds. Abdominal: General: Bowel sounds are normal. There is no distension. Palpations: Abdomen is soft. Tenderness: There is no abdominal tenderness. There is no guarding or rebound. Musculoskeletal: General: No swelling. Normal range of motion. Right lower leg: No edema. Left lower leg: No edema. Neurological: Mental Status: She is alert and oriented to person, place, and time. Skin: General: Skin is warm and dry. Psychiatric: Mood and Affect: Mood normal. Behavior: Behavior normal. Vitals and nursing note reviewed. Exam conducted with a tire duster present. Vitals: Estimated body mass index is 28.72 kg/m?? as calculated from the following: Height as of 11/26/24: 5' 2 . Weight as of 11/26/24: 157 lb. BP: No LMP recorded. ASSESSMENT & PLAN ICD-10-CM 1. Well woman exam with routine gynecological exam Z01.419 POCT urinalysis dipstick manually resulted THIN PREP TIS PAP AND HR HPV DNA Annual: Patient presents today for an annual exam. Patient states she is doing well and has no complaints. Pap was obtained without difficulty and patient had her annual mammogram done on 01/25/2025 w/a negative result. Orders Placed This Encounter Procedures POCT urinalysis dipstick manually resulted Follow Up: Patient is to return in one year for annual unless needed otherwise. Documented by Debra Staples MA on behalf of: EDWIN Gonsalez documented in this encounter Plan of Treatment Upcoming Encounters Date Type Department Care Team (Late st Contact Info) Description 05/27/2025 9:40 AM EDT Office Visit [facility] [address] [place] [address] Kallie Matias MD [address] [place] [address] 04/28/2026 9:30 AM EDT Office Visit [facility] [address] [place] [address] Elli Harris PA [address] [place] [address] Scheduled Orders Name Type Priority Associated Diagnoses Orde r Schedule THIN PREP TIS PAP AND HR HPV DNA Pathology and Cytology Routine Well woman exam with routine gynecological exam Ordered: 04/28/2025 documented as of this encounter Visit Diagnoses Diagnosis Well woman exam with routine gynecological exam Routine gynecological examination documented in this encounter Care Teams Police Matron Relationship Specialty Start Date End Date Shonna Noble MD [address] [facility] [place] [address] PCP - General Family Medicine 04/28/25 documented as of this encounter
--- OUTSIDE RECORDS SUMMARY | 2025-04-28 12:34 | XMS_ITS | Clinical Summary ---
Author Organization [facility] Address [address] [place] [address] Care Team Providers Care Blacksmith Supervisor Name Role Phone Shonna Noble MD Primary Care Provider [phone] Allergies No known active allergies Medications metoprolol succinate XL (Toprol-XL) 50 MG 24 hr tablet Take 50 mg by mouth Daily 4 Active methIMAzole (Tapazole) 5 MG tabletIndications: Thyrotoxicosis with diffuse goiter and without thyroid storm TAKE 1 TABLET BY MOUTH EVERY DAY 90 tablet 1 5 Active methIMAzole (Tapazole) 10 MG tablet 1 (one) time each day at the same time 04/28/20 Discontinu ed(Therapy completed) norethindrone-ethi nyl estradiol-iron (Lo Loestrin Fe) 1 MG-10 MCG / 10 MCG tabletIndications: Encounter for initial prescription of contraceptive pills Take 1 tablet by mouth Daily Take 1 tablet by mouth daily 28 tablet 11 4 04/28/20 25 Discontinu ed(Therapy completed) Active Problems Problem Noted Date Diagnosed Date Palpitations 10/22/2024 Tremor, unspecified 10/22/2024 Thyrotoxicosis with diffuse goiter without thyrotoxic crisis or storm 10/22/2024 Thyrotoxicosis, unspecified without thyrotoxic crisis or storm 10/22/2024 Encounters Date Type Department Care Team Description 04/28/2025 9:00 AM EDT Office Visit [facility] [address] [facility] [place] [address] Elli Harris PA Well woman exam with routine gynecological exam 04/28/2025 Bjboo flowsheet [facility] [address] [facility] [place] [address] Elli Harris PA 04/23/2025 Travel from Last 3 Months Family History Medical History Relation Name Comments Aortic aneurysm Father AAA-COD Hypertension Mother Breast cancer Mother's Sister Cervical cancer Mother's Sister Ovarian cancer Mother's Sister Relation Name Status Comments Daughter 1 Alive Daughter 2 Alive Father Mother Alive Mother's Sister Social History Tobacco Use Types Packs/Day Years Used Date Smoking Tobacco: Never Smokeless Tobacco: Never Tobacco Cessation:Counseling Given: Not Answered Alcohol Use Standard Drinks/Week Comments Yes 4 (1 standard drink = 0.6 oz pur e alcohol) Comments No Sex and Gender Information Value Date Recorded Sex Assigned at Not on file Legal Sex Female 11:04 AM EDT Gender Identity Not on file Sexual Orientation Not on file Last Filed Vital Signs Vital Sign Reading Time Taken Comments Blood Pressure 118/72 04/28/2025 9:02 AM EDT Pulse 81 11/26/2024 9:10 AM EST Temperature - - Respiratory Rate 16 11/26/2024 9:10 AM EST Oxygen Saturation 99% 05/28/2024 8:56 AM EDT Inhaled Oxygen Concentration - - Weight 65.3 kg (144 lb) 04/28/2025 9:02 AM EDT Height 157.5 cm (5' 2 ) 11/26/2024 9:10 AM EST Body Mass Index 26.34 11/26/2024 9:10 AM EST Plan of Treatment Upcoming Encounters Date Type Department Care Team (Late st Contact Info) Description 05/27/2025 9:40 AM EDT Office Visit [facility] [address] [place] [address] Kallie Matias MD [address] [place] [address] 04/28/2026 9:30 AM EDT Office Visit [facility] [address] [facility] [place] [address] Elli Harris PA [address] [facility] [place] [address] Insurance BCBS Care Teams Blacksmith Supervisor Relationship Specialty Start Date End Date Shonna Noble MD [address] [facility] [place] [place] [address] PCP - General Family Medicine 04/28/25
--- OUTSIDE RECORDS SUMMARY | 2025-04-28 12:34 | XMS_ITS | Encounter Summary ---
Author Organization [facility] Address [address] [place] [address] Care Team Providers Care Jewelry Bench Molder Name Role Phone Shonna Noble MD Primary Care Provider [phone] Shonna Noble MD Primary Care Provider [phone] Encounter Details Date Type Department Care Team (Late st Contact Info) Description 11/23/2024 Orders Only [facility] [address] [place] [address] Kallie Matias MD [address] [place] [address] Social History Tobacco Use Types Packs/Day Years Used Date Smoking Tobacco: Never Alcohol Use Standard Drinks/Week Comments Yes 0 (1 standard drink = 0.6 oz pur e alcohol) Comments Unknown Sex and Gender Information Value Date Recorded Sex Assigned at Not on file Legal Sex Female 11:04 AM EDT Gender Identity Not on file Sexual Orientation Not on file documented as of this encounter Plan of Treatment Upcoming Encounters Date Type Department Care Team (Late st Contact Info) Description 05/27/2025 9:40 AM EDT Office Visit [facility] [address] [place] [address] Kallie Matias MD [address] [place] [address] 04/28/2026 9:30 AM EDT Office Visit [facility] [address] [facility] [place] [address] Elli Harris PA [address] [facility] [address] [place], [place] [id number] documented as of this encounter Procedures Procedure Name Priority Date/Time Associated Diagnosis Comments T3, FREE Routine 11/23/2024 8:27 AM EST TSH Routine 11/23/2024 8:27 AM EST T4, FREE Routine 11/23/2024 8:27 AM EST documented in this encounter Results * TSH (11/23/2024 8:27 AM EST) Blood Venous blood specimen / Unknown Kallie Matias MD LAB BLOOD ORDERABLES Final Re sult * T4, free (11/23/2024 8:27 AM EST) Blood Venous blood specimen / Unknown us Kallie Matias MD LAB BLOOD ORDERABLES Final Re sult * T3, free (11/23/2024 8:27 AM EST) Blood Venous blood specimen / Unknown us Kallie Matias MD LAB BLOOD ORDERABLES Final Re sult documented in this encounter Visit Diagnoses Not on filedocumented in this encounter Care Teams Jewelry Bench Molder Relationship Specialty Start Date End Date Shonna Noble MD PCP - General Family Medicine 03/09/24 04/27/25 Shonna Noble MD [address] [facility] [place] [address] PCP - General Family Medicine 04/28/25 documented as of this encounter
--- OUTSIDE RECORDS SUMMARY | 2025-04-28 12:34 | XMS_ITS | Encounter Summary ---
Author Organization [facility] Address [address] [place] [address] Care Team Providers Care Scabbler Name Role Phone Shonna Noble MD Primary Care Provider Encounter Details Date Type Department Care Team (Latest Contact Info) Description 04/23/2025 Travel Social History Tobacco Use Types Packs/Day Years [...] AM EDT Office Visit [facility] [address] [place] [phone] Kallie Matias MD [address] [place] [address] 04/28/2026 9:30 AM EDT Office Visit [facility] [address] [facility] [place] [address] Elli Harris PA [address] [place] [address] documented as of this encounter Visit Diagnoses Not on filedocumented in this encounter Care Teams Scabbler Relationship Specialty Start Date End Date Shonna Noble MD PCP - General Family Medicine 03/09/24 04/27/25 documented as of this encounter
--- OUTSIDE RECORDS SUMMARY | 2025-04-28 12:34 | XMS_ITS | Encounter Summary ---
Author Organization [facility] Address [address] [place] [address] Care Team Providers Care Plate Inspector Name Role Phone Shonna Noble MD Primary Care Provider [phone] Shonna Noble MD Primary Care Provider [phone] Encounter Details Date Type Department Care Team (Late st Contact Info) Description 01/23/2024 Clinisync Result Encounter [facility] Unsolicited Merrill Amaya, DO [address] [place] [address] Social History Tobacco Use Types Packs/Day Years [...] AM EDT Office Visit [facility] [address] [place] [phone] Kallie Matias MD [address] [place] [address] 04/28/2026 9:30 AM EDT Office Visit [facility] [address] [facility] [place] [address] Elli Harris PA [address] [place] [address] [place] [address] documented as of this encounter Procedures Procedure Name Priority Date/Time Associated Diagnosis Comments MM TOMOSYNTHESIS SCREENING BI 01/23/2024 9:54 AM EDT documented in this encounter Results * MM TOMOSYNTHESIS SCREENING BI (01/23/2024 9:54 AM EDT) Anatomical Region Laterality Modality Other 01/23/2024 9:54 AM EDT Narrative 01/23/2024 9:55 AM EDT The [address] [address] Mammography Report Signed Patient: LOYDA MARAVILLA MR#: [id number] : 1975 Acct:[id number] Age/Sex: 48 / F ADM Date: 01/23/24 Loc: MAMMO Attending Dr: Merrill Amaya D.O. Ordering Physician: Merrill Amaya D.O. Results: Date of Service: 01/23/24 Follow Up: Procedure(s): MM tomosynthesis screening BI Accession Number(s): [id number] cc: Shonna Noble M.D.; Merrill Amaya D.O. Patient Name: LOYDA MARAVILLA MR#: [id number] : 1975 Exam Date: 01/23/2024 Ordering Doctor: DR Merrill Amaya . RADIOLOGY REPORT PROCEDURE: MM TOMOSYNTHESIS SCREENING BI COMPARISON: MG MAMM SCREEN 3D NATI CAD, 01/01/2023. MG MAMM SCREEN 3D NATI CAD, 12/22/2021. MG MAMM SCREEN NATI W CAD, 12/20/2020. MG MAMM SCREEN NATI W CAD, 11/26/2017. INDICATIONS: Screening Calculator Name NCI Breast Cancer Risk Assessment Tool 5 Year Breast Cancer Risk 0.80% Lifetime Breast Cancer Risk 8.50% Personal Breast Cancer No Personal Ovarian Cancer No Treatments None Family Cancers None LOCATION: The [facility] BREAST COMPOSITION: Heterogeneously dense,which may obscure small masses. FINDINGS: DIAGNOSTIC CATEGORY 2--BENIGN FINDING: RIGHT BREAST: No significant suspicious finding. Scattered benign-appearing lymph nodes are present. No significant change has occurred. LEFT BREAST: No significant suspicious finding. Scattered benign-appearing lymph nodes are present. No significant change has occurred. RECOMMENDATIONS: ROUTINE MAMMOGRAM AND CLINICAL EVALUATION IN 12 MONTHS. PLEASE NOTE: A NORMAL MAMMOGRAM DOES NOT EXCLUDE THE POSSIBILITY OF BREAST CANCER. A CLINICALLY SUSPICIOUS PALPABLE LUMP SHOULD BE BIOPSIED. Dictated by: Chema Espana M.D. on 01/23/2024 at 09:50 Approved by: Chema Espana M.D. on 01/23/2024 at 09:54 Dictated By: Chema Espana M.D. Signed By: 01/23/24 0955 DD/ TD/TT: Solar Process Engineer: Procedure Note Radiology, Radiologist, MD - 01/23/2024 [place] [address] Mammography Report Signed Patient: LOYDA MARAVILLA MMR#: [id number] : 1975Acct:[id number] Age/Sex: 48 / FADM Date: 01/23/24 Loc: MAMMO Attending Dr: Merrill Amaya D.O. Ordering Physician: Merrill Amaya D.O.Results: Date of Service: 01/23/24Follow Up: Procedure(s): MM tomosynthesis screening BI Accession Number(s): [id number] cc: Shonna Noble M.D.; Merrill Amaya D.O. Patient Name: LOYDA MARAVILLA MR#: [id number] : 1975 Exam Date: 01/23/2024 Ordering Doctor: DR Merrill Amaya . RADIOLOGY REPORT PROCEDURE: MM TOMOSYNTHESIS SCREENING BI COMPARISON: MG MAMM SCREEN 3D NATI CAD, 01/01/2023. MG MAMM SCREEN 3DBIL CAD, 12/22/2021. MG MAMM SCREEN NATI W CAD, 12/20/2020. MG MAMM SCREEN BILW CAD, 11/26/2017. INDICATIONS: Screening Calculator Name NCI Breast Cancer Risk Assessment Tool 5 Year Breast Cancer Risk 0.80% Lifetime Breast Cancer Risk 8.50% Personal Breast Cancer No Personal Ovarian Cancer No Treatments None Family Cancers None LOCATION: The [facility] BREAST COMPOSITION: Heterogeneously dense,which may obscure smallmasses. FINDINGS: DIAGNOSTIC CATEGORY 2--BENIGN FINDING: RIGHT BREAST: No significant suspicious finding. Scatteredbenign-appearing lymph nodes are present. No significant change has occurred. LEFT BREAST: No significant suspicious finding. Scatteredbenign-appearing lymph nodes are present. No significant change has occurred. RECOMMENDATIONS: ROUTINE MAMMOGRAM AND CLINICAL EVALUATION IN 12 MONTHS. PLEASE NOTE: A NORMAL MAMMOGRAM DOES NOT EXCLUDE THE POSSIBILITY OFBREAST CANCER. A CLINICALLY SUSPICIOUS PALPABLE LUMP SHOULD BE BIOPSIED. Dictated by: Chema Espana M.D. on 01/23/2024 at 09:50 Approved by: Chema Espana M.D. on 01/23/2024 at 09:54 Dictated By: Chema Espana M.D. Signed By:01/23/24 0955 DD/ 0954 TD/TT: Solar Process Engineer: Merrill Monique DO [facility] Final Result documented in this encounter Visit Diagnoses Not on filedocumented in this encounter Care Teams Plate Inspector Relationship Specialty Start Date End Date Shonna Noble MD PCP - General Family Medicine 03/09/24 04/27/25 Shonna Noble MD [address] [place] [phone] PCP - General Family Medicine 04/28/25 documented as of this encounter
--- OUTSIDE RECORDS SUMMARY | 2025-04-28 12:34 | XMS_ITS | Encounter Summary ---
Author Organization [facility] Address [address] [place] [address] Care Team Providers Care Ethyl Blender Name Role Phone Shonna Noble MD Primary Care Provider Encounter Details Date Type Department Care Team (Late Contact Info) Description 04/28/2025 Bamboo flowsheet [facility] [address] [place] [address] Elli Harris PA [address] [facility] [address] [place], [place] [address] Social History Tobacco Use Types Packs/Day Years [...] EDT Office Visit [facility] [address] [place] [address] Kallie Matias MD [address] [place] [address] 04/28/2026 9:30 AM EDT Office Visit [facility] [address] [facility] [place] [address] Elli Harris PA [address] [place] [address] [place] [address] documented as of this encounter Visit Diagnoses Not on filedocumented in this encounter Care Teams Ethyl Blender Relationship Specialty Start Date End Date Shonna Noble MD [address] [place] [address] [place] [phone] PCP - General Family Medicine 04/28/25 documented as of this encounter
[2025-05-01 14:08] LABS: Age Gdln ACOG Testing Note (.); HPV Aptima Negative (Negative); IGP, Aptima HPV, rfx 16/18,45 Note (.)
== END 2025-04-28 12:32 | disposition home or self-care (01) ==
LOC: LAB 12:31
PROVIDERS: PCP Family Medicine; Visit Provider Physician Assistant
DX: Z01.419 Encounter for gynecological examination (general) (routine) without abnormal findings (principal)
CPT/HCPCS: 87624; 88175

== ENCOUNTER 2025-05-21 11:30 | Outpatient (OUT) | payer BC, SELFPAY ==
--- OUTSIDE RECORDS SUMMARY | 2025-05-21 11:48 | XMS_ITS | CCD ---
Author Organization [facility] Care Team Providers Care Fancy Stitcher Name Role Phone ADRIEL AHMAD Attending Unavailable ANU, DR SHONNA Chong Primary Care Unavailable ADRIEL, AHMAD Admitting Unavailable CAMERON, DR BEV Stallings Consulting Unavailable ZIEBER, DR CHEMA Navarro Consulting Unavailable ADRIEL, KALLIE Consulting Unavailable BRENNAN, DR SHONNA Chong Attending Unavailable BRENNAN, DR SHONNA Chong Consulting Unavailable BRENNAN, DR SHONNA Chong Primary Care Unavailable BRENNAN, DR SHONNA Chong Admitting Unavailable ADRIEL, AHMAIndio Admitting Unavailable ADRIEL, AHMILOD Attending Unavailable ANU, DR SHONNA Chong Consulting Unavailable ANU, DR SHONNA Chong Primary Care Unavailable ADRIEL, AHMAD Admitting Unavailable ADRIEL, AHMAD Attending Unavailable BRENNAN, DR SHONNA Chong Primary Care Unavailable ADRIEL, AHALEX Consulting Unavailable KARASISmita ., DR MEHTA Attending Unavailabl e ANU, DR SHONNA Chong Primary Care Unavailable KARASIK ., DR MEHTA Consulting Unavailabl e KARALISON ., DR MEHTA Admitting Unavailabl e ANU, DR SHONNA Chong Primary Care Unavailable BRENNAN, DR SHONNA Chong Admitting Unavailable BRENNAN, DR SHONNA Chong Attending Unavailable KARCARMENK ., DR MEHTA Attending Unavailabl e BRENNAN, DR SHONNA Chong Primary Care Unavailable KARASIK ., DR MEHTA Consulting Unavailabl e KARASIK ., DR MEHTA Admitting Unavailabl e ZIEBHILARY, DR CHEMA Navarro Consulting Unavailable ADRIEL, AHMAD Admitting Unavailable ADRIEL, AHMAD Attending Unavailable ANU, DR SHONNA Chong Primary Care Unavailable ADRIEL, AHMAD Consulting Unavailable Shonna Brennan Unavailable MD Shonna Brennan Primary Care Provider [phone] DO Tiffany Perea Attending Provider [phone] Tiffany Perea Attending Unavailable Ly, Tiffany L Admitting Unavailable Shonna Brennan Primary Care Unavailable Shonna Brennan MD Primary Care Provider [phone] Shonna Brennan MD Primary Care Provider ELLI VALVERDE Attending Unavailable KALLIE MOREL Attending Unavailable KALLIE MOREL Referring Unavailable Shonna Brennan MD Primary Care Provider Shonna Brennan MD Primary Care Provider Elli Valverde PA-C Attending Provider Unavailable Chantelle Estrada APRN Attending Provider [phone] Allergies Allergy Classification Reported Allergen(s) Allergy Type Date of Onset Reaction(s) Facility (1 source) patient allergy list reviewed by nurse or physicia Propensity to adverse reactions Comment:Done [employer] Other (1 source) Allergies Reconciled Propensity to adverse reactions Unknown [employer] Other Medications Current Medications Medication Drug Class(es) Dates Sig (Normalized) Sig (Original) Ethinyl Estradiol / Ferrous fumarate / Norethindrone (5 sources) Estrogen Start: 03-09-2024 End: 04-28-2025 take 1 tablet by mouth once daily norethindrone-ethin yl estradiol-iron (Lo Loestrin Fe) 1 MG-10 MCG / 10 MCG tablet Indications: Encounter for initial prescription of contraceptive pills Take 1 tablet by mouth Daily Take 1 tablet by mouth daily 28 tablet 11 03/09/2024 04/28/2025 Discontinued (Therapy completed) Start: 03-09-2024 take 1 tablet by deangelo th once daily norethindrone-ethinyl estradiol-iron (Lo Loestrin Fe) 1 MG-10 MCG / 10 MCG tablet Indications: Encounter for initial prescription of contraceptive pills Take 1 tablet by mouth Daily Take 1 tablet by mouth daily 28 tablet 11 03/09/2024 Active Start: 03-09-2024 End: 02-08-2025 take 1 tablet by mouth once daily norethindrone-ethinyl estradiol-iron (Lo Loestrin Fe) 1 MG-10 MCG / 10 MCG tablet Indications: Encounter for initial prescription of contraceptive pills Take 1 tablet by mouth Daily Take 1 tablet by mouth daily 28 tablet 11 03/09/2024 02/08/2025 Active methIMAzole 5 mg oral tablet (18 sources) Thyroid Hormone Synthesis Inhibitor Start: 02-10-2024 take 1 tablet by mouth once daily methIMAzole (Tapazole) 5 MG tablet Indications: Thyrotoxicosis with diffuse goiter and without thyroid storm TAKE 1 TABLET BY MOUTH EVERY DAY 90 tablet 1 01/22/2025 Active End: 04-28-2025 methIMAzole (Tapazole) 10 MG tablet 1 (one) time each day at the same time 04/28/2025 Discontinued (Therapy completed) take 1 tablet by deangelo th every twenty-four hours methIMAzole 5 MG 1 tablet Orally Once a day Active 24 hr metoprolol succinate 50 mg extended release oral tablet (20 sources) beta-Adrenergic Joey Start: 05-06-2024 End: 04-29-2025 take 1 tablet by mouth once daily Metoprolol Succinate 50 mg tablet extended release 24 hr Active 0 .ROUTE .COMPLEX April 29, 2025 8:10am TAKE 1 TABLET BY MOUTH EVERY DAY Complies with drug therapy Start: 05-06-2024 take 1 tablet by deangelo th once daily Metoprolol Succinate Active 0 .ROUTE .COMPLEX 90 May 06, 2024 10:42am TAKE 1 TABLET BY MOUTH EVERY DAY Start: 11-12-2023 End: 05-06-2024 take 1 tablet by mouth once daily in the morning Metoprolol Succinate 50 mg tablet extended release 24 hr Discontinued 1 TAB PO Every morning February 10, 2024 12:00am May 06, 2024 10:42am FreeTextSig: TAKE 1 TABLET BY MOUTH EVERY DAY; Note: Source Status: Start; Refills: 1; Qty: 90 Tablet; Provider: Anu Kilpatrick ( ) take 1 capsule by mo ut once daily Metoprolol Succinate 50 MG 1 [...] Start: 02-11-2023 take 1 tablet by deangelo once daily before breakfast Adipex-P 37.5 MG 1 tablet before breakfast Orally Once a day for 30 days Feb, Active predniSONE 10 mg oral tablet (4 sources) Start: 05-12-2025 take 0.5 tablet by mouth once daily Prednisone 10 mg tablet Active 10 MG PO daily May 12, 2025 12:00am Take 40 mg for 2 days, 30 mg for 2 days, 20 mg for 2 days, 10 mg for 2 days, 1/2 tablet for 2 days Complies with drug therapy Start: 07-09-2024 End: 05-12-2025 take 1 tablet by mouth twice daily, then take 1 tablet by mouth once daily Prednisone 20 mg tablet Discontinued 20 MG PO Twice daily July 09, 2024 12:00am May 12, 2025 9:44am 1 tab bid x 3 days then 1 tab daily x 3 days triamcinolone acetonide 1 mg/ml topical cream (1 source) Corticosteroid Start: 05-12-2025 Triamcinolone Acetonide 0.1 % cream Active 1 APPLIC TOPICAL Twice daily 09 06May 12, 2025 12:00am Complies with drug therapy Completed/Discontinued Medications Medication Drug Class(es) Dates Sig (Normalized) Sig (Original) azithromycin 250 mg oral tablet (5 sources) Macrolide Antimicrobial Start: 02-10-2024 End: 03-18-2024 Azithromycin 250 mg tablet Discontinued 0 PO .COMPLEX February 10, 2024 12:00am March 18, 2024 9:31am For 250 mg dose pack: take 500 mg today (day 1), then 250 mg for 4 days (days 2-5) PO Start: 02-10-2024 End: 03-18-2024 Azithromycin Discontinued 0 [...] 2-5) PO benzonatate 200 mg oral capsule (5 sources) Non-narcotic Antitussive Start: 02-10-2024 End: 03-18-2024 Benzonatate 200 mg capsule Discontinued 200 MG PO 2-3 TIMES PER DAY as needed for cough February 10, 2024 12:00am March 18, 2024 9:31am clobetasol propionate 0.5 mg/ml topical cream (3 sources) Corticosteroid Start: 06-10-2024 End: 05-12-2025 Clobetasol 0.05 % cream Discontinued 1 APPLIC TOPICAL Twice daily June 10, 2024 12:00am May 12, 2025 9:44am sulfamethoxazole 800 mg / trimethoprim 160 mg oral tablet (2 sources) Dihydrofolate Reductase Inhibitor Antibacterial, Sulfonamide Antimicrobial Start: 08-10-2024 End: 05-12-2025 take 1 tablet by mouth twice daily Sulfamethoxazole- Trimethoprim 800-160 mg tablet Discontinued 1 TAB PO Twice daily August 10, 2024 12:00am May 12, 2025 9:44am Problems Active Problems Problem Classification Problem Date Documented Date Episodic/Chronic Allergic reactions (9 sources) Allergic contact dermatitis caused by plant material; Translations: [Allergic contact dermatitis due to plants, except food] 07-11-2024 Episodic Asthma (5 sources) Asthma; Translations: [Unspecified asthma, uncomplicated] Onset: 09-07-2014 Chronic Chronic obstructive pulmonary disease and bronchiectasis (5 sources) Bronchitis; Translations: [Bronchitis, not specified as acute or chronic] 02-10-2024 Episodic Genitourinary symptoms and ill-defined conditions (2 sources) Genitourinary symptoms; Translations: [Unspecified symptoms and signs involving the genitourinary system] 08-17-2024 Episodic Immunizations and screening for infectious disease [...] conditions (not mental disorders or infectious disease) (20 sources) Other specified abnormal findings of blood [...] sinusitis] Onset: 01-07-2018 Episodic Residual codes; unclassified (5 sources) Family history of cancer of colon; Translations: [Family history of malignant neoplasm of digestive organs] 02-10-2024 Episodic Residual codes; unclassified (2 sources) Family history of malignant neoplasm of digestive organs; Translations: [Family history of malignant neoplasm of gastrointestinal tract] 02-10-2024 Episodic Thyroid disorders (20 sources) Thyrotoxicosis with diffuse goiter without thyrotoxic [...] bronchitis, unspecified] Resolved: 10-31-2020 Episodic Cardiac dysrhythmias (9 sources) Palpitations; Translations: [Palpitations] Onset: 08-25-2022 11-26-2024 Episodic Inflammation; infection of eye (except that caused by tuberculosis or sexually transmitteddisease) (1 source) Acute conjunctivitis; Translations: [Unspecified acute conjunctivitis] Onset: 06-04-2016 Episodic Other infections; including parasitic (1 source) Helminth infection; Translations: [Unspecified helminth infection] Onset: 07-21-2018 Episodic Other nervous system disorders (8 sources) Tremor; Translations: [Tremor, unspecified] Onset: 10-22-2024 11-26-2024 Episodic Other non-traumatic joint disorders (1 source) Shoulder joint pain; Translations: [Pain in right shoulder] Onset: 03-13-2017 Episodic Other nutritional; endocrine; and metabolic disorders (1 source) Underweight; Translations: [Underweight] Resolved: 10-31-2020 Episodic Spondylosis; intervertebral disc disorders; other back problems (2 sources) Neck pain; Translations: [Cervicalgia] Onset: 03-13-2017 Resolved: 10-31-2020 Episodic Results Test Name Value Interpretation Reference Range Facility IGP,APTIMA HPV,AGE GDLNon AGE GDLN ACOG TESTING Note . [facility] Comment on above: TESTS RESULT FLAG UN ITS REF RANGE LAB Clinician Provided Cytology Information Source.............Cervix;Endocervix No. of containers..01 ThinPrep Vial Age Algo ACOG Ivanna... 30-65 FLAG LEGEND: L-Low Normal,H-High Normal,LL-Alert Low,HH-Alert High <-Panic Low,>-Panic High,A-Abnormal,AA-Critical Abnormal Performed at: 01 =[address] [address] Binta Fry MD, HPV APTIMA Negative Negative [facility] Comment on above: This nucleic acid am plification test detects fourteen high- risk HPV types (16,18,31,33,35,39,45,51,52,56,58,59,66,68) without differentiation. Performed at: =[address] [id number] Biometric Screener: Binta Fry MD, Phone: [phone] Performed at: [address] [id number] Biometric Screener: Binta Fry MD, Phone: [phone] IGP, APTIMA HPV, RFX 16/18,45 Note . [facility] Comment on above: TESTS RESULT FLAG UN ITS REF RANGE LAB DIAGNOSIS: 02 NEGATIVE FOR INTRAEPITHELIAL LESION OR MALIGNANCY. Specimen adequacy: 02 Satisfactory for evaluation. Endocervical and/or squamous metaplastic cells (endocervical component) are present. Performed by: Malgorzata Meier, Senior Product Analyst (ASCP) . 02 Note: Note 02 The Pap smear is a screening test designed to aid in the detection of premalignant and malignant conditions of the uterine cervix. It is not a diagnostic procedure and should not be used as the sole means of detecting cervical cancer. Both false-positive and false-negative reports do occur. Test Methodology: Note 02 This liquid based ThinPrep(R) pap test was screened with the use of an image guided system. HPV Genotype Reflex Note 02 Criteria not met, HPV Genotype not performed. FLAG LEGEND: L-Low Normal,H-High Normal,LL-Alert Low,HH-Alert High <-Panic Low,>-Panic High,A-Abnormal,AA-Critical Abnormal Performed at: [address] [address] Binta Fry MD, BRUSH-SPATULA CERVIX ENDOCERVIX [facility] Human papilloma virus 16+18+ 31+33+35+39+45+51+52+56+58+59+66+68 DNA [Presence] in CerOrdered By: Elli Valverde on 04-28-2025 HPV 16+18+31+33+35+39+45+5 1+52+56+58+59+66+68 DNA Probe+sig amp Ql (Cvx) Negative Negative [facility] Comment on above: This nucleic acid am plification test detects fourteen high- risk HPV types (16,18,31,33,35,39,45,51,52,56,58,59,66,68)without differentiation.Performed at: =[address] [id number] Director: Binta Fry MD, Phone: [phone] at: [address] [id number] Director: Binta Fry MD, Phone: [phone] No Panel InformationOrdered By: Elli Valverde on 04-28-2025 HPV High Risk Other Comment Note . [facility] Comment on above: TESTS RESULT FLAG UN ITS REF RANGE LAB DIAGNOSIS: 02 NEGATIVE FOR INTRAEPITHELIAL LESION OR MALIGNANCY.Specimen adequacy: 02 Satisfactory for evaluation. Endocervical and/or squamous metaplastic cells (endocervical component) are present.Performed by: Malgorzata Meier, Senior Product Analyst ([facility]). 02Note: Note 02 The Pap smear is [...] Criteria not met, HPV Genotype not performed. ------- FLAG LEGEND: L-Low Normal,H-High Normal,LL-Alert Low,HH-Alert High <-Panic Low,>-Panic High,A-Abnormal,AA-Critical Abnormal -----Performed at:[address] [address] Binta Fry MD, Reference Lab Test Patient Age Note . [facility] Comment on above: TESTS RESULT FLAG UN ITS REF RANGE LAB Clinician Provided Cytology Information Source.............Cervix;Endocervix No. of containers..01 ThinPrep VialAge Roberto SHAVONNE Ivanna... 30-65 01 FLAG LEGEND: L-Low Normal,H-High Normal,LL-Alert Low,HH-Alert High <-Panic Low,>-Panic High,A-Abnormal,AA-Critical Abnormal -----Performed at:01 =[facility] [address] [place] [address] Binta Fry MD, Globulin Calc (S) [Mass/Vol] on 05-18-2024 Globulin (S) [Mass/Vol] 3.4 g/dL [facility] - Chemistry and C hemistry - challengeon 05-18-2024 Albumin [Mass/Vol] 3.9 g/dL 3.4-5.0 [facility] ALP [Catalytic activity/Vol] 65 U/L 46-116 [facility] ALT [Catalytic activity/Vol] 22 U/L 14-59 [facility] AST [Catalytic activity/Vol] 20 U/L 15-37 [facility] Bilirubin [Mass/Vol] 0.5 mg/dL 0.2-1.[address] [facility] Bilirubin.direct [Mass/Vol] 0.1 mg/dL 0.0-0.2 [facility] Free T4 [Mass/Vol] 0.85 ng/dL 0.76-1.46 [facility] Protein [Mass/Vol] 7.3 g/dL 6.4-8.2 [facility] TSH Qn 1.716 m[IU]/L 0.358-3.740 [facility] No Panel Informationon 05-18 Free Triiodothyronine 2.57 pg/mL 2.18-3.98 [facility] Serum or plasma albumin/glob ulin mass ratioon 05-18-2024 Albumin/Globulin [Mass ratio] 1.1 {ratio} [facility] HCG ( test) IA.rapi d Ql (U)Ordered By: Tiffany Perea on 03-31-2024 HCG ( test) Ql (U) Negative [facility] HCG,Urineon 03-31-2024 Beta HCG ( test) Ql (U) Negative Normal [facility] Comment on above: Result Comment: PERF ORMED BY: [place] [address] PATHOLOGIST CIRCUS ROUSTABOUT JAGDISH DENTON M.D. Performed By: #### U HCG #### [address] [place] 03-31-2024 L Specimen: [id number] Received: 03/31/24 Status: YVONNE Tee Num: [id number] Spec Type: Surgical Subm Dr: Tiffany Perea DO Tissues: A Colon Biopsy (CECAL POLYP) B Colon Biopsy (TRANSV POLYP) Procedures: HE/4, Gross/Micro L4/2 Age/ Patient Sex Location Account Attending Physician Allan Avendaño 48/F [id number] Tiffany Perea DO SPEC NUM: [id number] RECD: 03/31/24 STATUS: YVONNE TEE NUM: [id number] LIZETH: 03/31/24- SUBM DR: Tiffany Perea DO ENTERED: 03/31/[address]: SPEC TYPE: Surgical DEPT: S ORDERED: [...] polypoid tissue fragment, entirely submitted in B1. Specimen: [id number] Received: 03/31/24 Status: YVONNE Tee Num: [id number] Spec Type: Surgical Subm Dr: Tiffany Perea, DO Tissues: A Colon Biopsy (CECAL POLYP) B Colon Biopsy (TRANSV POLYP) Procedures: MARTHA, Gross/Micro L4/2 Patient: Allan Avendaño [id number] (Continued) Specimen: Received: 03/31/24 (Continued) Signed (signature on file) Ally Abraham MD 04/01/24 1925 Specimen: Received: 03/31/24 Status: YVONNE Steeledwaine Num: [id number] Spec Type: Surgical Subm Dr: Tiffany Perea DO Tissues: A Colon Biopsy (CECAL POLYP) B Colon Biopsy (TRANSV POLYP) Procedures: MARTHA/Ling, Gross/Micro L4/2 Patient: Allan Avendaño [id number] (Continued) Specimen: Received: 03/31/24 (Continued) CPT Codes 52398D7 Specimen: [id number] Received: 03/31/24 Status: YVONNE Nay Num: [id number] Spec Type: Surgical Subm Dr: Tiffany Perea DO Tissues: A Colon Biopsy (CECAL POLYP) B Colon Biopsy (TRANSV POLYP) Procedures: Yael COTTO/Oscar L4/2 Patient: Allan Avendaño [id number] (Continued) Signed (signature on file) Ally Abraham MD 04/01/241924 Normal [facility] Human papilloma virus 16+18+ 31+33+35+39+45+51+52+56+58+59+66+68 DNA [Presence] in [place] 03-09-2024 HPV 16+18+31+33+35+39+45+5 1+52+56+58+59+66+68 DNA Probe+sig amp Ql (Cvx) Negative Negative [facility] Comment on above: This nucleic acid am plification test detects fourteen high- risk HPV types (16,18,31,33,35,39,45,51,52,56,58,59,66,68)without differentiation.Performed at: =G - [facility] [address] [id number] Director: Binta Fry MD, Phone: [phone] at: - [facility] [address] [id number] Director: Binta Fry MD, Phone: [phone] No Panel Informationon 03-09 HPV High Risk Other Comment Note . [facility] Comment on above: TESTS RESULT FLAG UN ITS REF RANGE LAB DIAGNOSIS: 02 NEGATIVE FOR INTRAEPITHELIAL LESION OR MALIGNANCY.Specimen adequacy: 02 Satisfactory for evaluation. Endocervical and/or squamous metaplastic cells (endocervical component) are present.Performed by: Malgorzata Landa, Veneer Stacker (ASCP). 02Note: Note 02 The Pap smear [...] Criteria not met, HPV Genotype not performed. ------- FLAG LEGEND: L-Low Normal,H-High Normal,LL-Alert Low,HH-Alert High <-Panic Low,>-Panic High,A-Abnormal,AA-Critical Abnormal -----Performed at:02 [facility] [address] [place] [address] Binta Fry MD, Reference Lab Test Patient Age Note . [facility] Comment on above: TESTS RESULT FLAG UN ITS REF RANGE LAB Clinician Provided Cytology Information Source.............Cervix;Endocervix No. of containers..01 ThinPrep VialAge Roberto ACOG Ivanna... 30-65 01 FLAG LEGEND: L-Low Normal,H-High Normal,LL-Alert Low,HH-Alert High <-Panic Low,>-Panic High,A-Abnormal,AA-Critical Abnormal -----Performed at:01 =G [facility] [address] [place] [address] Binta Fry MD, FREE T3on 01-18-2023 FREE T3 2.54 pg/mlL Normal 2.18-3.98 [facility] Comment on above: Performed By: #### F T3, TSH #### [facility] [address] [address] [address] Celso Abraham FREE T4on 01-18-2023 Free T4 [Mass/Vol] 0.70 ng/dL Critically low 0.76-1.46 [facility] Comment on above: Performed By: #### F T4 #### [facility] [address] [address] [address] Celso Abraham PAP ACOG PANEL 2: 30 to 65on 01-18-2023 . . Normal [facility] Comment on above: Result Comment: Perf ormed at: [facility] Performed By: #### C MP, TSH #### [facility] [address] [address] [address] Celso Abraham Age Gdln ACOG Testing 30-65 [facility] Comment on above: Performed By: #### C MP, TSH #### [facility] [address] [address] [address] Celso Abraham DIAGNOSIS: Comment Normal [facility] Comment on above: Result Comment: NEGA TIVE FOR INTRAEPITHELIAL LESION OR MALIGNANCY. Performed at: [facility] Performed By: #### C MP, TSH #### [facility] [address] [address] [address] Celso Abraham HPV Aptima Negative Normal Negative [facility] Comment on above: Result Comment: This nucleic acid amplification test detects fourteen high-risk HPV types (16,18,31,33,35,39,45,51,52,56,58,59,66,68) without differentiation. Performed at: =G Performed By: #### C MP, TSH #### [facility] [address] [address] [address] Celso Abraham HPV Genotype Reflex Comment Normal [facility] Comment on above: Result Comment: Crit eria not met, HPV Genotype not performed. Performed at: [facility] Performed By: #### C MP, TSH #### [facility] [address] [address] [address] Celso Abraham Methodology: Comment Normal [facility] Comment on above: Result Comment: This liquid based ThinPrep(R) pap test was screened with the use of an image guided system. Performed at: [facility] Performed By: #### C MP, TSH #### [facility] [address] [place] [address] Dr. Celso Abraham Note: Comment Normal [facility] Comment on above: Result Comment: The [...] Performed By: #### C MP, TSH #### [facility] [address] [place] [address] Dr. Celso Abraham Performed by: Comment Normal [facility] Comment on above: Result Comment: Savanna Lopez, Veneer Stacker (ASCP) Performed at: [facility] Performed By: #### C MP, TSH #### [facility] [address] [place] [address] Dr. Celso Abraham Specimen adequacy: Comment Normal [facility] Comment on above: Result Comment: Sati sfactory for evaluation. Endocervical and/or squamous metaplastic cells (endocervical component) are present. Performed at: [facility] Performed By: #### C MP, TSH #### [facility] [address] [place] [address] Dr. Celso Abraham TSHon 01-18-2023 TSH 0.687 uIU/mL Normal 0.358-3.740 [facility] Comment on above: Performed By: #### F T3, TSH #### [facility] [address] [place] [address] Dr. Celso Abraham MG MAMM SCREEN 3D NATI CADon 01-01-2023 MG MAMM SCREEN 3D NATI CAD Patient: ALLAN AVENDAÑO Exam Date: 01/01/2023 : 1975 Gender:F Ordering : DR TYSON GAUTAM . Admission #: [id number] Family : Order #: [id number] CLICK HERE TO VIEW EXAM RADIOLOGY REPORT [...] Treatments None Family Cancers None LOCATION: [facility] BREAST COMPOSITION: Heterogeneously dense,which may obscure [...] M.D. on 01/02/2023 at 14:12 Normal [facility] THYROTROPIN RECEPTOR ABon Thyrotropin Receptor Ab, Serum 3.12 IU/L Critically high 0.00-1.75 [facility] Comment on above: Performed By: #### C MP, TSH #### [facility] [address] [address] [address] Celso Abraahm FREE T3on 10-23-2022 FREE T3 2.19 pg/mlL Normal 2.18-3.98 [facility] Comment on above: Performed By: #### T SH, FT3, LIVER #### [facility] [address] [address] [address] Celso Abraham FREE T4on 10-23-2022 Free T4 [Mass/Vol] 0.72 ng/dL Critically low 0.76-1.46 [facility] Comment on above: Performed By: #### C MP, TSH #### [facility] [address] [address] [address] Celso Abraham LIVER PROFILEon 12-13-2022 Albumin [Mass/Vol] 3.6 g/dL Normal 3.4-5.0 [facility] Comment on above: Performed By: #### T MALATHI FT3, LIVER #### [facility] [address] [place] [address] Dr. Celso Abraham Albumin/Globulin [Mass ratio] 1.1 {ratio} Normal [facility] Comment on above: Performed By: #### T MALATHI FT3, LIVER #### [facility] [address] [place] [address] Dr. Celso Abraham ALP [Catalytic activity/Vol] 136 U/L Critically high 46-116 [facility] Comment on above: Performed By: #### T MALATHI FT3, LIVER #### [facility] [address] [place] [address] Dr. Celso Abraham ALT [Catalytic activity/Vol] 32 U/L Normal 14-59 [facility] Comment on above: Performed By: #### T MALATHI FT3, LIVER #### [facility] [address] [place] [address] Dr. Celso Abraham AST [Catalytic activity/Vol] 24 U/L Normal 15-37 [facility] Comment on above: Performed By: #### T MALATHI FT3, LIVER #### [facility] [address] [place] [address] Dr. Celso Abraham BILI, CONJUGATED 0.1 mg/dL Normal 0.0-0.2 [facility] Comment on above: Performed By: #### T MALATHI FT3, LIVER #### [facility] [address] [place] [address] Dr. Celso Abraham Bilirubin [Mass/Vol] 0.4 mg/dL Normal 0.2-1.0 [facility] Comment on above: Performed By: #### T MALATHI FT3, LIVER #### [facility] [address] [place] [address] Dr. Celso Abraham Globulin (S) [Mass/Vol] 3.4 g/dL Normal [facility] Comment on above: Performed By: #### T MALATHI FT3, LIVER #### [facility] [address] [place] [address] Dr. Celso Abraham Protein [Mass/Vol] 7.0 g/dL Normal 6.4-8.2 [facility] Comment on above: Performed By: #### T SH, FT3, LIVER #### [facility] [address] [place] [address] Dr. Celso Abraham TSHon 10-23-2022 TSH Qn m[IU]/L Critically low 0.358-3.740 [facility] Comment on above: Performed By: #### T SH, FT3, LIVER #### [facility] [address] [place] [address] Dr. Celso Abraham THYROID ANTIBODIESon 022 Thyroglobulin Antibody 62.7 IU/mL Critically high 0.0-0.9 [facility] Comment on above: Result Comment: Thyr oglobulin Antibody measured by [employer] Methodology Performed By: #### C MP, TSH #### [facility] [address] [place] [address] Dr. Celso Abraham Thyroid Peroxidase (TPO) Ab 115 IU/mL Critically high 0-34 [facility] Comment on above: Performed By: #### C MP, TSH #### [facility] [address] [place] [address] Dr. Celso Abraham THYROTROPIN RECEPTOR ABon Thyrotropin Receptor Ab, Serum 7.58 IU/L Critically high 0.00-1.75 [facility] Comment on above: Performed By: #### T HYRABT #### [facility] [address] [place] [address] Dr. Celso Abraham NM THY SCAN W [...] by: BEV GOLDSTEIN Date: 2022-08-23 08:02 Normal [facility] FREE T3on 08-22-2022 FREE T3 7.90 pg/mlL Critically high 2.18-3.98 [facility] Comment on above: Performed By: #### C MP, TSH #### [facility] [address] [place] [address] Dr. Celso Abraham FREE T4on 08-22-2022 Free T4 [Mass/Vol] 2.01 ng/dL Critically high 0.76-1.46 [facility] Comment on above: Performed By: #### C MP, TSH #### [facility] [address] [place] [address] Dr. Celso Abraham LIVER PROFILEon 08-22-2022 Albumin [Mass/Vol] 3.4 g/dL Normal 3.4-5.0 [facility] Comment on above: Performed By: #### C MP, TSH #### [facility] [address] [place] [address] Dr. Celso Abraham Albumin/Globulin [Mass ratio] 1.0 {ratio} Normal [facility] Comment on above: Performed By: #### C MP, TSH #### [facility] [address] [place] [address] Dr. Celso Abraham ALP [Catalytic activity/Vol] 160 U/L Critically high 46-116 [facility] Comment on above: Performed By: #### C MP, TSH #### [facility] [address] [place] [address] Dr. Celso Abraham ALT [Catalytic activity/Vol] 34 U/L Normal 14-59 [facility] Comment on above: Performed By: #### C MP, TSH #### [facility] [address] [place] [address] Dr. Celso Abraham AST [Catalytic activity/Vol] 14 U/L Critically low 15-37 [facility] Comment on above: Performed By: #### C MP, TSH #### [facility] [address] [address] [address] Celso Abraham BILI, CONJUGATED 0.1 mg/dL Normal 0.0-0.2 [facility] Comment on above: Performed By: #### C MP, TSH #### [facility] [address] [place] [address] Dr. Celso Abraham Bilirubin [Mass/Vol] 0.2 mg/dL Normal 0.2-1.0 [facility] Comment on above: Performed By: #### C MP, TSH #### [facility] [address] [place] [address] Dr. Celso Abraham Globulin (S) [Mass/Vol] 3.4 g/dL Normal [facility] Comment on above: Performed By: #### C MP, TSH #### [facility] [address] [place] [address] Dr. Cleso Abraham Protein [Mass/Vol] 6.8 g/dL Normal 6.4-8.2 [facility] Comment on above: Performed By: #### C MP, TSH #### [facility] [address] [place] [address] Dr. Celso Abraham TSHon 08-22-2022 TSH Qn m[IU]/L Critically low 0.358-3.740 [facility] Comment on above: Performed By: #### C MP, TSH #### [facility] [address] [place] [address] Dr. Celso Abraham US THYROIDon 08-22-2022 US [...] by: CHEMA ESPANA Date: 2022-08-22 16:07 Normal [facility] CERULOPLASMINon 07-26-2022 Ceruloplasmin 34.9 mg/dL Normal 19.0-39.0 [facility] Comment on above: Performed By: #### C EUROPL #### [facility] [address] [address] [address] Celso Abraham FREE T4on 07-25-2022 Free T4 [Mass/Vol] 2.34 ng/dL Critically high 0.76-1.46 [facility] Comment on above: Performed By: #### C MP, TSH #### [facility] [address] [place] [address] Dr. Celso Abraham PROF 14(COMP METB)on 022 Albumin [Mass/Vol] 3.8 g/dL Normal 3.4-5.0 [facility] Comment on above: Performed By: #### C MP, TSH #### [facility] [address] [place] [address] Dr. Celso Abraham Albumin/Globulin [Mass ratio] 1.1 {ratio} Normal [facility] Comment on above: Performed By: #### C MP, TSH #### [facility] [address] [place] [address] Dr. Celso Abraham ALP [Catalytic activity/Vol] 163 U/L Critically high 46-116 [facility] Comment on above: Performed By: #### C MP, TSH #### [facility] [address] [place] [address] Dr. Celso Abraham ALT [Catalytic activity/Vol] 41 U/L Normal 14-59 [facility] Comment on above: Performed By: #### C MP, TSH #### [facility] [address] [place] [address] Dr. Celso Abraham Anion gap [Moles/Vol] 13.4 mmol/L Normal [facility] Comment on above: Performed By: #### C MP, TSH #### [facility] [address] [address] [address] Celso Abraham AST [Catalytic activity/Vol] 21 U/L Normal 15-37 [facility] Comment on above: Performed By: #### C MP, TSH #### [facility] [address] [address] [address] Celso Abraham Bilirubin [Mass/Vol] 0.5 mg/dL Normal 0.2-1.0 [facility] Comment on above: Performed By: #### C MP, TSH #### [facility] [address] [address] [address] Celso Abraham Calcium [Mass/Vol] 9.8 mg/dL Normal 8.5-10.1 [facility] Comment on above: Performed By: #### C MP, TSH #### [facility] [address] [place] [address] Dr. Celso Abraham Chloride [Moles/Vol] 104 mmol/L Normal 98-107 [facility] Comment on above: Performed By: #### C MP, TSH #### [facility] [address] [address] [address] Celso Abraham CO2 [Moles/Vol] 24.9 mmol/L Normal 21.0-32.0 [facility] Comment on above: Performed By: #### C MP, TSH #### [facility] [address] [place] [address] Dr. Celso Abraham Creatinine [Mass/Vol] 0.67 mg/dL Normal 0.55-1.02 [facility] Comment on above: Performed By: #### C MP, TSH #### [facility] [address] [place] [address] Dr. Celso Abraham EGFR-AF BURMESE >60 Normal >=60 [facility] Comment on above: Performed By: #### C MP, TSH #### [facility] [address] [address] [address] Celso Abraham EGFR-NON AF BURMESE >60 Normal >=60 [facility] Comment on above: Performed By: #### C MP, TSH #### [facility] [address] [address] [address] Celso Abraham Globulin (S) [Mass/Vol] 3.6 g/dL Normal [facility] Comment on above: Performed By: #### C MP, TSH #### [facility] [address] [place] [address] Dr. Celso Abraham Glucose [Mass/Vol] 104 mg/dL Normal 74-106 [facility] Comment on above: Performed By: #### C MP, TSH #### [facility] [address] [place] [address] Dr. Celso Abraham Potassium [Moles/Vol] 4.3 mmol/L Normal 3.5-5.1 [facility] Comment on above: Performed By: #### C MP, TSH #### [facility] [address] [place] [address] Dr. Celso Abraham Protein [Mass/Vol] 7.4 g/dL Normal 6.4-8.2 [facility] Comment on above: Performed By: #### C MP, TSH #### [facility] [address] [place] [address] Dr. Celso Abraham Sodium [Moles/Vol] 138 mmol/L Normal 136-145 [facility] Comment on above: Performed By: #### C MP, TSH #### [facility] [address] [place] [address] Dr. Celso Abraham Urea nitrogen [Mass/Vol] 14.0 mg/dL Normal 7.0-18.0 [facility] Comment on above: Performed By: #### C MP, TSH #### [facility] [address] [place] [address] Dr. Celso Abraham Urea nitrogen/Creatinine [Mass ratio] 20.9 mg/mg Normal [facility] Comment on above: Performed By: #### C MP, TSH #### [facility] [address] [place] [address] Dr. Celso Abraham TSHon 07-25-2022 TSH Qn m[IU]/L Critically low 0.358-3.740 [facility] Comment on above: Performed By: #### C MP, TSH #### [facility] [address] [place] [address] Dr. Celso Abraham Vital Signs Date Time Vital Sign Value Performing Clinician Facility 05-12-2025 09:42-0400 Body height 157.48 cm Shonna Brennan MD Work Phone: [facility] 05-12-2025 09:42-0400 Body mass index (BMI) [Ratio] 26.3 kg/m2 Shonna Brennan MD Work Phone: [facility] 05-12-2025 09:42-0400 Body temperature 97.5 [degF] Shonna Brennan MD Work Phone: [facility] 05-12-2025 09:42-0400 Body weight 65.31 kg Shonna Brennan MD Work Phone: [facility] 05-12-2025 09:42-0400 Heart rate 71 /min Shonna Brennan MD Work Phone: [facility] 05-12-2025 09:42-0400 SaO2% (BldA) [Mass fraction] 99 % Shonna Brennan MD Work Phone: [facility] 04-28-2025 09:02-0400 Body mass index (BMI) [Ratio] 26.34 kg/m2 Elli PINEDA Work Phone: [facility] 04-28-2025 09:02-0400 Body weight 65.32 kg Elli PINEDA Work Phone: [facility] 04-28-2025 09:02-0400 Diastolic blood pressure 72 mm[Hg] Elli PINEDA Work Phone: [facility] 04-28-2025 09:02-0400 Systolic blood pressure 118 mm[Hg] Elli PINEDA Work Phone: [facility] 11-26-2024 09:10-0500 Body height 157.5 cm Kallie Morel MD Work Phone: [facility] 11-26-2024 09:10-0500 Body mass index (BMI) [Ratio] 28.72 kg/m2 Kallie Morel MD Work Phone: [facility] 11-26-2024 09:10-0500 Body weight 71.22 kg Kallie Morel MD Work Phone: [facility] 11-26-2024 09:10-0500 Heart rate 81 /min Kallie Morel MD Work Phone: [facility] 11-26-2024 09:10-0500 Respiratory rate 16 /min Kallie Morel MD Work Phone: [facility] 08-10-2024 14:35-0400 Body height 157.48 cm [facility] 08-10-2024 14:35-0400 Body mass index (BMI) [Ratio] 28.4 kg/m2 [facility] 08-10-2024 14:35-0400 Body weight 70.53 kg [facility] 08-10-2024 14:35-0400 Diastolic blood pressure 73 mm[Hg] [facility] 08-10-2024 14:35-0400 Heart rate 86 /min [facility] 08-10-2024 14:35-0400 Systolic blood pressure 109 mm[Hg] [facility] 07-09-2024 14:25-0400 Body height 157.48 cm [facility] 07-09-2024 14:25-0400 Body mass index (BMI) [Ratio] 28.7 kg/m2 [facility] 07-09-2024 14:25-0400 Body weight 71.21 kg [facility] 07-09-2024 14:25-0400 Diastolic blood pressure 74 mm[Hg] [facility] 07-09-2024 14:25-0400 Heart rate 77 /min [facility] 07-09-2024 14:25-0400 Systolic blood pressure 116 mm[Hg] [facility] 03-31-2024 09:26-0400 Diastolic blood pressure 51 mm[Hg] MD Shonna Brennan Work Phone: [facility] 03-31-2024 09:26-0400 Heart rate 53 /min MD Shonna Brennan Work Phone: [facility] 03-31-2024 09:26-0400 Respiratory rate 16 /min MD Shonna Brennan Work Phone: [facility] 03-31-2024 09:26-0400 SaO2% (BldA) [Mass fraction] 99 % MD Shonna Brennan Work Phone: [facility] 03-31-2024 09:26-0400 Systolic blood pressure 101 mm[Hg] MD Shonna Brennan Work Phone: [facility] 03-31-2024 07:06-0400 Body height 157.48 cm MD Shonna Brennan Work Phone: [facility] 03-31-2024 07:06-0400 Body weight 70 kg MD Shonna Brennan Work Phone: [facility] 02-10-2024 10:37-0400 Body height 158.75 cm [facility] 02-10-2024 10:37-0400 Body mass index (BMI) [Ratio] 27 kg/m2 [facility] 02-10-2024 10:37-0400 Body temperature 98 [degF] [facility] 02-10-2024 10:37-0400 Body weight 68.2 kg [facility] 02-10-2024 10:37-0400 Diastolic blood pressure 69 mm[Hg] [facility] 02-10-2024 10:37-0400 Heart rate 72 /min [facility] 02-10-2024 10:37-0400 Systolic blood pressure 103 mm[Hg] [facility] 06-07-2023 11:45-0400 Body height 158.75 cm Shonna Brennan Other [facility] [employer] Other 06-07-2023 11:45-0400 Body mass index (BMI) [Ratio] 25.2 kg/m2 Shonna Brennan Other [employer] [facility] [employer] Other 06-07-2023 11:45-0400 Body weight 63.5 kg Shonna Brennan Other [employer] Other 06-07-2023 11:45-0400 Diastolic blood pressure 60 mm[Hg] Shonna Brennan Other [employer] Other 06-07-2023 11:45-0400 Systolic blood pressure 99 mm[Hg] Shonna Brennan Other [employer] Other 03-15-2023 10:00-0400 Body height 158.75 cm Shonna Brennan Other [employer] Other 03-15-2023 10:00-0400 Body mass index (BMI) [Ratio] 25.92 kg/m2 Shonna Brennan Other [employer] Other 03-15-2023 10:00-0400 Body weight 65.32 kg Shonna Brennan Other [employer] Other 03-15-2023 10:00-0400 Diastolic blood pressure 58 mm[Hg] Shonna Brennan Other [employer] Other 03-15-2023 10:00-0400 Systolic blood pressure 94 mm[Hg] Shonna Brennan Other [employer] Other 02-11-2023 14:45-0400 Body height 158.75 cm Shonna Brennan Other [employer] Other 02-11-2023 14:45-0400 Body mass index (BMI) [Ratio] 27.9 kg/m2 Shonna Brennan Other [employer] Other 02-11-2023 14:45-0400 Body weight 70.31 kg Shonna Brennan Other [employer] Other 02-11-2023 14:45-0400 Diastolic blood pressure 64 mm[Hg] Shonna Brennan Other [employer] Other 02-11-2023 14:45-0400 SaO2% (BldA) [Mass fraction] 97 % Shonna Brennan Other [employer] Other 02-11-2023 14:45-0400 Systolic blood pressure 98 mm[Hg] Shonna Brennan Other [employer] Other Encounters Encounter Date Encounter Type Care Provider Facility Start: 05-12-2025 End: 05-12-2025 ambulatory Shonna Brennan MD Work Phone: [facility] Work Phone: Start: 05-12-2025 End: 05-12-2025 Patient encounter procedure Chantelle Estrada APRN MATE CHIEF -[facility] Work Phone: Start: 04-28-2025 End: 04-28-2025 Bamboo flowsheet Elli PINEDA Work Phone: [facility] Start: 04-28-2025 End: 05-01-2025 Bamboo flowsheet Elli PINEDA Work Phone: [facility] Start: 04-28-2025 End: 05-01-2025 Clinisync Result Encounter Elli PINEDA Work Phone: [facility] Unsolicited Start: 04-28-2025 End: 04-28-2025 Patient encounter procedure Elli PINEDA Work Phone: [facility] Start: 04-28-2025 End: 04-28-2025 Periodic preventive med est patient 40-64yrs Elli PINEDA Work Phone: [facility] Comment on above: Well woman exam with routine gynecological exam Start: 04-28-2025 Non-patient / Non-visit Elli Valverde [place] -[facility] Work Phone: Start: 04-28-2025 End: 04-28-2025 ambulatory ELLI VALVERDE Not Available Start: 11-26-2024 End: 11-26-2024 Office outpatient visit 25 minutes Kallie Morel MD Work Phone: [facility] Comment on above: 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) (Primary Dx); 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 Work Phone: Start: 05-18-2024 Non-patient / Non-visit [facility] Work Phone: Start: 03-31-2024 End: 03-31-2024 ambulatory Tiffany Perea Facility:[facility] Start: 03-31-2024 Non-patient / Non-visit MD Lelo Brennan Work Phone: [facility] Work Phone: Start: 03-31-2024 End: 03-31-2024 Admission to same day surgery center MD Shonna Brennan Work Phone: [facility] Work Phone: Start: 03-31-2024 End: 03-31-2024 ambulatory MD Shonna Brennan Work Phone: [facility] Work Phone: Start: 03-09-2024 Non-patient / Non-visit MD Lelo Brennan Work Phone: [facility] [employer] Work Phone: Start: 02-10-2024 End: 02-10-2024 ambulatory [facility] Work Phone: Start: 02-10-2024 End: 02-10-2024 Patient encounter procedure [facility] Work Phone: Start: 06-07-2023 End: 06-07-2023 ambulatory Shonna Brennan Other [employer] Other Start: 06-07-2023 Office outpatient vi sit 15 minutes Shonna Brennan [facility] Start: 03-15-2023 End: 03-15-2023 ambulatory Shonna Brennan Other [employer] Other Start: 03-15-2023 Office outpatient vi sit 15 minutes Shonna Brennan [facility] Start: 02-11-2023 End: 02-11-2023 ambulatory Shonna Brennan Other [employer] Other Start: 02-11-2023 Office outpatient vi sit 15 minutes Shonna Brennan [facility] Start: 01-18-2023 End: 01-19-2023 ambulatory [facility] Facility:[facility] Start: 01-15-2023 End: 01-15-[address] TYSON GAUTAM . Facility:[facility] Start: 01-01-2023 End: 01-02-[address] TYSON GAUTAM . Facility:[facility] Start: 10-23-2022 End: 10-24-2022 ambulatory [facility] Facility:[facility] Start: 10-08-2022 Gynecological examination normal Shonna Brennan Other [employer] Other Start: 08-23-2022 ambulatory KALLIE MOREL Facility: [facility] Start: 08-22-2022 End: 08-23-2022 ambulatory KALLIE MOREL Facility:[facility] Start: 07-25-2022 Adult health examination Shonna Brennan Other [employer] Other Start: 07-25-2022 End: 07-26-[address] SHONNA BRENNAN Facility:[facility] Start: 02-27-[address] SHONNA BRENNAN Facil ity:[facility]1 Procedures Date Procedure Procedure Detail Performing Clinician Start: 04-28-2025 IGP,APTIMA HPV,AGE GDLN Elli PINEDA Work Phone: Start: 03-31-2024 Screening colonoscopy M Indio Brennan Work Phone: Screening for malign ant neoplasm of breast Shonna Brennan Other Screening for malign ant neoplasm of breast Shonna Brennan Other Plan of Treatment Date Care Activity Detail Author Start: 04-28-2026 End: 04-28-2026 Patient encounter procedure 04/28/2026 9:30 AM EDT Office Visit [facility] [address] [place] [id number] Elli Valverde PA [address] [place] [address] [facility] Start: 05-27-2025 End: 05-27-2025 Patient encounter procedure 05/27/2025 9:40 AM EDT Office Visit [facility] [address] [place] [address] Kallie Morel MD [address] [place] [address] [facility] Start: 04-28-2025 End: 04-28-2025 Patient encounter procedure 04/28/2025 9:00 AM EDT Office Visit [facility] [address] [place] [address] Elli Valverde, PA [address] [place] [address] Arrived [facility] Comment on above: Arrived Start: 03-16-2025 End: 03-16-2025 Patient encounter procedure 03/16/2025 9:00 AM EDT Office Visit [facility] [address] [place] [id number] Elli Valverde, PA [address] [place] [address] [facility] Start: 11-26-2024 End: 11-26-2025 Hepatic function 2000 panel - Serum or Plasma Hepatic function panel Lab Routine 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) Expected: 11/26/2024 (Approximate), Expires: 11/26/2025 [facility] Comment on above: Expected: 11/26/2024 (Approximate), Expi res: 11/26/2025 Start: 11-26-2024 End: 11-26-2025 Thyrotropin [Units/volume] in Serum or Plasma TSH Lab Routine 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) Expected: 11/26/2024 (Approximate), Expires: 11/26/2025 [facility] Comment on above: Expected: 11/26/2024 (Approximate), Expi res: 11/26/2025 Start: 11-26-2024 End: 11-26-2025 Thyroxine (T4) free [Mass/volume] in Serum or Plasma T4, free Lab Routine 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) Expected: 11/26/2024 (Approximate), Expires: 11/26/2025 [facility] Comment on above: Expected: 11/26/2024 (Approximate), Expi res: 11/26/2025 Start: 11-26-2024 End: 11-26-2025 Triiodothyronine (T3) Free [Mass/volume] in Serum or Plasma T3, free Lab Routine 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 Work Phone: Patient referral [facility] Work Phone: THIN PREP TIS PAP AN D HR HPV DNA THIN PREP TIS PAP AND HR HPV DNA Pathology and Cytology Routine Well woman exam with routine gynecological exam Ordered: 04/28/2025 [facility] [email or web address] Work Phone: Comment on above: Ordered: 04/28/2025 Payers Date Payer Category Payer [facility] [id number] 1975 Unknown [id number]. [id number] 1977 Unknown [id number] [id number]. 2.593 1977 Unknown [id number] [id number]. 2.593 1977 Unknown [id number] 2.16.840.1.495807.3.579. 2.593 1977 Unknown [id number] [id number]. 2.593 1977 Unknown [id number] 2.16.840.1.052351.3.579. 2.593 1977 Unknown [id number] 2.16.840.1.193816.3.579. 2.593 1977 Unknown [id number] [id number]. 2.593 1977 Unknown [id number] 2.16.840.1.289435.3.579. 2.1259 1977 Unknown [id number] [id number]. 2.1259 1959 Self-pay 1957 Unknown [id number] Unknown [id number]. 2.531 Social History Date Type Detail Facility Unknown if ever smoked [facility] [employer] Other Start: 11-26-2024 Sex Assigned At N [facility] [employer] Other Start: 1975 Sex Assigned At Female F [facility] Start: 03-31-2024 End: 11-26-2024 Tobacco smoking status NHIS Never smoked tobacco (finding) [facility] Start: 11-26-2024 Tobacco use and exposure Smokeless tobacco non-user [facility] Start: 11-26-2024 End: 04-28-2025 Alcoholic beverage intake Current drinker of alcohol (finding) [facility] Start: 11-26-2024 End: 04-28-2025 Alcoholic beverage intake [facility] Start: 1975 Sex assigned at Not on file [facility] Sex Female (finding) [facility] Goals Date Patient Goal Desired Activity /State Clinical Notes 02-11-2023 to 04-28-2025 Debra Staples MA - 04/28/2025 9:00 AM Elvira Morel MD - 11/26/2024 9:10 AM EST Note Date & Type Note Facility 04-28-2025 History of Present illness Narrative Reason for Appointment: Patient ID: Allan Avendaño is a 49 y.o. female who presents [...] nursing note reviewed. Exam conducted with a language instructor present. Vitals: Estimated body mass index is 28.72 kg/m as calculated from the following: Height as [...] of: EDWIN Gonsalez documented in this encounter [facility] 11-26-2024 History of Present illness Narrative Allan Avendaño is a 49 y.o. female Kallie Morel MD presents with chief complaint of Thyroid Problem HPI: Interim history: 11/2023 Followup visit: 11/26/2024 TSH 1.84, free T4 0.87 (0.7-1.46), free T3 2.22 (2.18-3.19), on methimazole 5 mg 4 days a week. Interim history: 11/2023 Followup visit: 11/28/2023 TSH 1.94, free T4 0.85 (0.7-1.46), free T3 2.69 (2.18-3.19), on methimazole 5 mg 5 days a week. Interim history: 05/2023 Followup visit: 05/30/2023 TSH 1.42 free T4 0.81 (0.7-1.46), free T3 2.65 (2.18-3.19), on methimazole 5 mg 5 days a week Interim history: 01/2023 Followup visit: 01/28/2023 TSH 0.62 free T4 0.7 (0.7-1.46), free T3 2.54 (2.18-3.19), on methimazole 10 mg 5 days a week Interim history: 10/2022 Followup visit: 10/31/2022 TSH 0.07 free T4 2.1 (0.7-1.46), free T3 2.19 (2.18-3.19), TRAB 3.12 (0-1.75), on methimazole 10 mg daily ,feels better Interim history: 08/2022 Followup visit: 08/31/2022 for thyroid scan uptake: 6 hours, 45%; 24 hours, 64%. Ultrasound shows right lobe 5.1 x 1.7 x 1.6; left lobe 4.7 x 1.6 x 1.6. There is a 5 mm nodule in the isthmus, TR4. Labs done. TSH 0.007, free T4 2.1 (0.7-1.46), free T3 7.9 (2.18-3.19). She finished course of prednisone and she is still on metoprolol. TPO 115, Tg AB 62 HPI: 07/2022 New patient sent from Shonna Brennan for hyperthyroidism. Free T4 2.32 (0.76-1.46), TSH 0.007. Back in December she is also hyper. She lost weight and then she gained weight. She has the tremor, palpitation, and anxiety. She has 2 kids, 20 and 18 years old. She still has cycle. Denies family history of thyroid disease. Not on any medication at this time. SUBJECTIVE: MEDICATIONS: Current Outpatient Medications Medication Instructions methIMAzole (Tapazole) 10 MG tablet Every 24 hours metoprolol succinate XL (TOPROL-XL) 50 mg, Daily norethindrone-ethinyl estradiol-iron (Lo Loestrin Fe) 1 MG-10 MCG / 10 MCG tablet 1 tablet, Oral, Daily, Take 1 tablet by mouth daily ALLERGIES: No Known Allergies Past Medical History: Diagnosis Date Acute asthma (CMS/HCC) Allergic contact dermatitis due to plant Allergic rhinitis, seasonal BMI 27.0-27.9,adult Breast cancer screening by mammogram Encounter for gynecological examination (general) (routine) without abnormal findings Graves disease (CMS/HCC) Hair loss HPV in female Low serum thyroid stimulating hormone (TSH) Palpitations Seasonal allergies 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 She is normal weight. HENT: Head: Normocephalic and atraumatic. Right Ear: External ear normal. Nose: Nose normal. Mouth/Throat: Pharynx: Oropharynx is clear. Eyes: Extraocular Movements: Extraocular movements intact. Pupils: Pupils are equal, round, and reactive to light. Cardiovascular: Rate and Rhythm: Normal rate and regular rhythm. Pulmonary: Effort: Pulmonary effort is normal. Abdominal: General: Abdomen is flat. Palpations: Abdomen is soft. Musculoskeletal: General: Normal range of motion. Skin: General: Skin is warm. Neurological: General: No focal deficit present. Mental Status: She is alert. Psychiatric: Mood and Affect: Mood normal. Behavior: Behavior normal. 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 Tremor, unspecified Much better continue with metoprolol. Palpitations Follow up in about 6 months (around 05/26/2025). documented in this encounter [facility] 03-31-2024 Procedure note [facility] 06-07-2023 Evaluation note Encounter Date Diagnosis Assessment Notes May, Overweight (BMI 25.0-29.9) (ICD-10 - E66.3) Last filled on 03/15 - discussed new pharmacy rules. BMI is 25 and she filled it in March. Unsure if [facility] can fill this. Pt expressed marilia harrell Discussed diet and exercise. May, Hyperthyroidism (ICD-10 - E05.90) Discussed labs and treatment with Dr. Morel [employer] Other 05-05-2023 Evaluation note* Encounter Date Diagnosis Assessment Notes Treatment Notes Treatment Clinical Notes March, Overweight (ICD-10 - E66.3) Patient [...] index [BMI] 25.0-25.9, adult (ICD-10 - Z68.25) [employer] Other 04-03-2023 Evaluation note* Encounter Date Diagnosis Assessment Notes Treatment Notes Treatment Clinical Notes Feb, BMI 27.0-27.9,adult (ICD-10 - Z68.27) [...] her to cut tablets in 1/2 initially. [employer] Other 04-03-2023 Evaluation note* Encounter Date Diagnosis Assessment Notes Treatment Notes Treatment Clinical Notes Feb, BMI 27.0-27.9,adult (ICD-10 - Z68.27) [...] weight issues. Continue followup with his office. [employer] Other Evaluation note* Diagnosis Onset Date Resolution Status Family history of colon cancer acute Screening for colon cancer a [facility] Work Phone: Evaluation note* Diagnosis Onset Date Resolution Status Bronchitis acute Family history of colon cancer acute Screening for colon cancer a [facility] Work Phone: Evaluation noteNo assessment information available [facility] Work Phone: Evaluation note* Diagnosis Onset Date Resolution Status Allergic contact dermatitis due to plants, except food acute [facility] Work Phone: Evaluation note* Diagnosis 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) Tremor, unspecified Palpitations [facility] Diagnosis Well woman exam with routine gynecological exam Routine gynecological examination [facility] Diagnosis Onset Date Resolution Status Admit Date Contact dermatitis acute May 122024 9:31am [facility] Work Phone: History and physical note Author Tiffany Perea [facility] March 31, 2024 8:34am Note Date/Time March 31, 2024 8:07a m [facility] [address] [place] [address] Gastroenterology H&P Signed Patient: Allan Avendaño MR#: [id number] : 1975 Acct:[id number] Age/Sex: 48 / F Adm Date: 4 Loc: Room: Type: [facility] Attending Dr: Tiffany Perea DO Copies to: [...] signed by Tiffany Perea DO> 03/31/24 0834 [facility] Work Phone: History general Narrative - Reported* Type Description Date Medical History seasonal allergies Medical History asthma Medical History infectious gastroenteritis Medical History myalgia Medical History intention tremor Medical History HPV infection Surgical History section Hospitalization History see surgical hx [facility] Other Hospital Discharge instructionsAmbulatory Orders* Referral to Gastroenterology Time Frame: 02/10/24, Location: None Selected [facility] Work Phone: Reason for referral (narrative)No reason for referral information available[facility] Work Phone: Summary Purpose Family History Relationship Condition Age at Onset Recorded Date/T karthik father Unknown Not Specified Hypertension Unknown Relationship Condition Age at Onset Recorded Date/T karthik father Unknown Peripheral vascular disease Unknown Not Specified Hypertension Unknown Relationship Condition Age at Onset Recorded Date/T karthik father Unknown Peripheral vascular disease Unknown mother Hypertension Unknown Advance Directives Advance Directive Response Recorded Date/ Time Advance Directives No February 09 10:32am Chief Complaint and Reason for Visit Chief Complaint Sick-Sinuses Reason for Visit Family history of co robles cancer Screening for colon cancer Chief Complaint Sick-Sinuses Screening Screening Reason for Visit Bronchitis Family history of colon cancer Screening for colon cancer Chief Complaint poison leander Chief Complaint poison leander Urinary Tract Infection / UTI Reason for Visit Allergic contact fidel matitis due to plants, except food Chief Complaint Admit Date poison leander May 12, 2025 9:31a m Reason for Visit Admit Date Contact dermatitis May 12, 2025 9:31a m Additional Source Comments INFORMATION SOURCE (unrecogn ized section and content) DATE CREATED AUTHOR 01/23/2023 [facility] DATE CREATED AUTHOR AUTHOR'S ORGANIZ ATION 04/05/2024 [facility] DATE CREATED AUTHOR AUTHOR'S ORGANIZ ATION 05/01/2025 [facility] EPIC REASON FOR VISIT (unrecogniz ed section and content) Reason Comments Thyroid Problem Reason Comments Gynecologic Exam Care Teams (unrecognized sec tion and content) Team Status: Active Member Role Status Dates Shonna Brennan MD Primary Care Provider Active Team Status: Active Member Role Status Dates Shonna Brennan MD Primary Care Provider Active Start: May 18, 2024 Kallie Morel MD Attending Provider Active Sta rt: May 18, 2024 Team Status: Inactive Member Role Status Dates Shonna Brennan MD Primary Care Provide r, Attending Provider Active Start: July 09, 2024 End: July 09, 2024 Team Status: Inactive Member Role Status Dates Shonna Brennan MD Primary Care Provide r, Attending Provider Active Start: February 10, 2024 End: February 10, 2024 Team Status: Active Member Role Status Dates Shonna Brennan MD Primary Care Provider Active Start: March 09, 2024 Merrill Amaya Attending Provider Active Start: 2023 Team Status: Inactive Member Role Status [...] Other Provider Active Start: March 31, 2024 Team Status: Inactive Member Role Status Dates Shonna Brennan MD Primary Care Provide r, Attending Provider Active Start: August 10, 2024 End: August 10, 2024 Fancy Stitcher Relationship Specialty Start Date End Date Shonna Brennan MD [address] [place] [id number] PCP - General Family Medicine 03/09/24 Fancy Stitcher Relationship Specialty Start Date End Date Shonna Brennan MD PCP - General Family Medicine 03/09/24 Fancy Stitcher Relationship Specialty Start Date End Date Shonna Brennan MD PCP - General Family Medicine 03/09/24 Fancy Stitcher Relationship Specialty Start Date End Date Shonna Brennan MD [address] [place] [id number] PCP - General Family Medicine 04/28/25 Team Status: Active Member Role Status Dates Shonna Brennan MD Primary Care Provider Active Start: April 28, 2025 Elli Steven , PA-C Attending Provider Active Start : April 28, 2025 Team Status: Inactive Member Role Status Dates Shonna Brennan MD Primary Care Provider Active Start: May 12, 2025 End: May 12, 2025 WILLIAM ClarkC Attending Provider Act maciel Start: May 12, 2025 End: May 12, 2025 Goals (unrecognized section and content) Goals may [...] BE BASED ON THE PRIMARY CLINICAL RECORDS. [facility] [employer] [facility]. provides no warranty or guarantee of the accuracy or completeness of information in this document.
[2025-05-21 12:55] LABS: Free T3 2.50 pg/mL (2.18-3.98); Thyroid Stimulating Hormone 1.157 uIU/mL (0.358-3.740)
== END 2025-05-21 11:31 | disposition home or self-care (01) ==
LOC: LAB 11:32
PROVIDERS: PCP Family Medicine; Visit Provider Internal Medicine
DX: E05.00 Thyrotoxicosis with diffuse goiter without thyrotoxic crisis or storm (principal)
CPT/HCPCS: 36415; 84439; 84443; 84481

== ENCOUNTER 2025-11-10 09:32 | Outpatient (OUT) | payer BC, SELFPAY ==
--- OUTSIDE RECORDS SUMMARY | 2025-11-10 09:37 | XMS_ITS | Clinical Summary ---
Author Organization [facility] Healthcare Address [address] [place] [address] Care Team Providers Care Marketing Program Coordinator Name Role Phone Shonna Noble MD Primary Care Provider [phone] Allergies No known active allergies Medications MedicationSigDispense QuantityRefillsLast FilledStart DateEnd DateStatus metoprolol succinate XL (Toprol-XL) 50 MG 24 hr tablet Take 50 mg by mouth Daily4Active methIMAzole (Tapazole) 5 MG tablet Indications:Thyrotoxicosis with diffuse goiter and without thyroid stormTAKE 1 TABLET BY MOUTH EVERY DAY 90 tablet 5Active Active Problems ProblemNoted DateDiagnosed CcnrNccphipkxgdw53/12/2024Tremor, unspecified 10/22/2024Thyrotoxicosis with diffuse goiter without thyrotoxic crisis or storm 10/22/2024Thyrotoxicosis, unspecified without thyrotoxic crisis or storm 10/22/2024 Family History Medical HistoryRelationNameCommentsAortic aneurysmFatherAAA-CODHypertension MotherBreast cancerMother's SisterCervical cancerMother's SisterOvarian cancer Mother's SisterRelationNameStatusCommentsDaughter 1AliveDaughter 2AliveFather DeceasedMotherAliveMother's Sister Social History Tobacco UseTypesPacks/DayYears UsedDateSmoking Tobacco: NeverSmokeless Tobacco: Never Tobacco Cessation:Counseling Given: Not Answered Alcohol UseStandard Drinks/WeekCommentsYes4 (1 standard drink = 0.6 oz pure alcohol)CommentsNoSex and Gender InformationValueDate RecordedSex Assigned at BirthNot on fileLegal JxsHhfnrm22/29/2024 11:04 AM EDTGender IdentityNot on fileSexual OrientationNot on file Last Filed Vital Signs Vital SignReadingTime TakenCommentsBlood Smzczqmw449/7206 9:02 AM EDT Maqbv221405/27/2025 9:50 AM EDTTemperature--Respiratory Xtxa403705/27/2025 9:50 AM EDTOxygen Ebicvrgjxi13%05/27/2025 9:50 AM EDTInhaled Oxygen Concentration-- Kgzowr73.5 kg (140 lb)05/27/2025 9:50 AM DRGCsibmg742.5 cm (5' 2 )05/27/2025 9:50 AM EDTBody Mass Index25.6107 9:50 AM EDT Plan of Treatment DateTypeDepartmentCare Team (Latest Contact Info)Cdxuihnccxn22/09/2026 9:30 AM ESTOffice Visit [facility] [address] [place] [address] Kallie Matias MD [address] [place] [address] 04/28/2026 9:30 AM EDTOffice Visit [facility] [address] [place] [address] Elli Harris PA [address] [place] [address] Insurance * Guarantor: Lluvia Maravilla TypeRelation to PatientDate of BirthPhone Billing AddressPersonal/ZxeegtTucc[birth year][address] [phone] Care Teams Team MemberRelationshipSpecialtyStart DateEnd Date Shonna Noble MD [address] [place] [address] PCP - GeneralFamily Medicine04/28/25
--- OUTSIDE RECORDS SUMMARY | 2025-11-10 09:41 | XMS_ITS | CCD ---
Author Organization [facility] Care Team Providers Care Family Centered Specialist Name Role Phone ADRIEL, AHMAD Attending Unavailable ANU, DR SHONNA Chong Primary Care Unavailable ADRIEL, AHMAD Admitting Unavailable TRISTON, DR BEV Stallings Consulting Unavailable ZIEBHILARY, DR CHEMA Navarro Consulting Unavailable ADRIEL, AHMAD Consulting Unavailable BRENNAN, DR SHONNA Chong Attending Unavailable BRENNAN, DR SHONNA Chong Consulting Unavailable BRENNAN, DR SHONNA Chong Primary Care Unavailable BRENNAN, DR SHONNA Chong Admitting Unavailable ADRIEL, AHMAIndio Admitting Unavailable ADRIEL, AHMAD Attending Unavailable BRENNAN, DR SHONNA Chong Consulting Unavailable BRENNAN, DR SHONNA Chong Primary Care Unavailable ADRIEL, AHMAD Admitting Unavailable ADRIEL, AHMAD Attending Unavailable BRENNAN, DR SHONNA Chong Primary Care Unavailable ADRIEL, AHALEX Consulting Unavailable KARASIK ., DR MEHTA Attending Unavailabl [...] Unavailable MD Shonna Brennan Primary Care Provider [phone] DO Tiffany Perea Attending Provider [phone] Tiffany Perea Attending Unavailable Tiffany Perea Admitting Unavailable Shonna Brennan Primary Care Unavailable Shonna Brennan MD Primary Care Provider Shonna Brennan MD Primary Care Provider Shonna Brennan MD Primary Care Provider Shonna Brennan MD Primary Care Provider Elli Valverde PA-C Attending Provider Unavailable Chantelle Estrada APRN Attending Provider [phone] Kallie Morel MD Attending Provider [phone] ELLI VALVERDE Attending Unavailable KALLIE MOREL Attending Unavailable KALLIE MOREL Attending Unavailable KALLIE MOREL Referring Unavailable Shonna Brennan MD Primary Care Provider [phone] Shonna Brennan MD Primary Care Provider Allergies Allergy ClassificationReported Allergen(s)Allergy TypeDate of OnsetReaction(s) Facility (1 source)patient allergy list reviewed by nurse or physiciaPropensity to adverse urdfgdilw69-55-4932Ziawsjv:[place] Other (1 source)Allergies ReconciledPropensity to adverse reactionsMilford Regional Medical CenterRightSignature Other Medications Current Medications MedicationDrug Class(es)DatesSig (Normalized)Sig (Original)Ethinyl Estradiol / Ferrous fumarate / Norethindrone (5 sources)EstrogenStart: 03-09-2024 End: 04-25-0815zagq 1 tablet by mouth once dailynorethindrone-ethinyl estradiol- iron (Lo Loestrin Fe) 1 MG-10 MCG / 10 MCG tablet Indications: Encounter for initial prescription of contraceptive pills Take 1 tablet by mouth Daily Take 1 tablet by mouth daily 28 tablet 11 03/09/2024 04/28/2025 Discontinued (Therapy completed)Start: 05-22-7106ylra 1 tablet by mouth once dailynorethindrone- ethinyl estradiol-iron (Lo Loestrin Fe) 1 MG-10 MCG / 10 MCG tablet Indications: Encounter for initial prescription of contraceptive pills Take 1 tablet by mouth Daily Take 1 tablet by mouth daily 28 tablet 11 03/09/2024 ActiveStart: 03-09-2024 End: 73-40-8410qgtx 1 tablet by mouth once dailynorethindrone-ethinyl estradiol- iron (Lo Loestrin Fe) 1 MG-10 MCG / 10 MCG tablet Indications: Encounter for initial prescription of contraceptive pills Take 1 tablet by mouth Daily Take 1 tablet by mouth daily 28 tablet 11 03/09/2024 02/08/2025 ActivemethIMAzole 5 mg oral tablet (20 sources)Thyroid Hormone Synthesis InhibitorStart: 71-60-9303fnrk 1 tablet by mouth once dailymethIMAzole (Tapazole) 5 MG tablet Indications: Thyrotoxicosis with diffuse goiter and without thyroid storm TAKE 1 TABLET BY MOUTH EVERY DAY 90 tablet 1 01/22/2025 Active End: 54-31-7810yeefVHLffge (Tapazole) 10 MG tablet 1 (one) time each day at the same time 04/28/2025 Discontinued (Therapy completed)take 1 tablet by mouth every twenty-four hoursmethIMAzole 5 MG 1 tablet Orally Once a day Active nystatin 578522 unt/ml topical cream (1 source)Polyene AntifungalStart: 08-74-0868Xtgwbfia 100,000 unit/gram cream Active 1 APPLIC TOPICAL Three times daily May 26, 2025 12:00am Complies with drug therapyphentermine hydrochloride 37.5 mg oral tablet (4 sources)Sympathomimetic Amine AnorecticStart: 91-10-9310oaiq 1 tablet by mouth once daily before breakfastAdipex-P 37.5 MG 1 tablet before breakfast Orally Once a day for 30 days May, ActiveStart: 39-63-4960plcd 1 tablet by mouth once daily before breakfastAdipex-P 37.5 MG 1 tablet before breakfast Orally Once a day for 30 days March, ActiveStart: 62-22-9238isjv 1 tablet by mouth once daily before breakfastAdipex-P 37.5 MG 1 tablet before breakfast Orally Once a day for 30 days Feb, Activetriamcinolone acetonide 1 mg/ml topical cream (2 sources)CorticosteroidStart: 61-07-3535Reuvprzxjvana Acetonide 0.1 % cream Active 1 APPLIC TOPICAL Twice daily 09 06May 12, 2025 12:00amComplies with drug therapy Completed/Discontinued Medications MedicationDrug Class(es)DatesSig (Normalized)Sig (Original)azithromycin 250 mg oral tablet (6 sources)Macrolide AntimicrobialStart: 02-10-2024 End: 08-49-1566Dhhvhyrfqcbr 250 mg tablet Discontinued 0 PO .COMPLEX February 10, 2024 12:00am March 18, 2024 9:31am For 250 mg dose pack: take 500 mg today (day 1), then 250 mg for 4 days (days 2-5) POStart: 02-10-2024 End: 39-64-4423Jdrfgyytvpxx Discontinued 0 PO .COMPLEX February 10, 2024 12:00am March 18, 2024 9:31am For 250 mg dose pack: take 500 mg today (day 1), then 250 mg for 4 days (days 2-5) POStart: 28-23-5702Osbxtltmzfoo Active 0 PO .COMPLEX February 10, 2024 12:00am For 250 mg dose pack: take 500 mg today(day 1), then 250 mg for 4 days (days 2-5) PObenzonatate 200 mg oral capsule (6 sources)Non-narcotic AntitussiveStart: 02-10-2024 End: 00-10-7662Yjvpxnntrrh 200 mg capsule Discontinued 200 MG PO 2-3 TIMES PER DAY as needed for cough February 10, 2024 12:00am March 18, 2024 9:31am clobetasol propionate 0.5 mg/ml topical cream (4 sources)CorticosteroidStart: 06-10-2024 End: 12-65-5195Zqmkrknoqi 0.05 % cream Discontinued 1 APPLIC TOPICAL Twice daily June 10, 2024 12:00am May 12, 2025 9:44am24 hr metoprolol succinate 50 mg extended release oral tablet (20 sources)beta-Adrenergic BlockerStart: 05-06-2024 End: 34-31-2357qoac 1 tablet by mouth once dailyMetoprolol Succinate 50 mg tablet extended release 24 hr Discontinued 0 .ROUTE .COMPLEX 2023 10:05am April 29, 2025 8:10am TAKE 1 TABLET BY MOUTH EVERY DAYStart: 00-66-3371xqje 1 tablet by mouth once dailyMetoprolol Succinate Active 0 .ROUTE .COMPLEX 90 May 06, 2024 10:42am TAKE 1 TABLET BY MOUTH EVERY DAYStart: 11-12-2023 End: 90-86-0583prrc 1 tablet by mouth once dailymetoprolol succinate XL (Toprol- XL) 50 MG 24 hr tablet Take 50 mg by mouth Daily 11/12/2023 Activetake 1 capsule by mouth once dailyMetoprolol Succinate 50 MG 1 capsule Orally Once a day Active predniSONE 10 mg oral tablet (6 sources)Start: 05-12-2025 End: 28-51-5090dona 0.5 tablet by mouth once dailyPrednisone 10 mg tablet Discontinued 10 MG PO daily May 12, 2025 12:00am May 26, 2025 2:12pm Take 40 mg for 2 days, 30 mg for 2 days, 20 mg for 2 days, 10 mg for 2 days, 1/2 tablet for 2 daysStart: 07-09-2024 End: 18-36-3332mobx 1 tablet by mouth twice daily, then take 1 tablet by mouth once dailyPrednisone 20 mg tablet Discontinued 20 MG PO Twice daily July 09, 2024 12:00am May 12, 2025 9:44am 1 tab bid x 3 days then 1 tab daily x 3 dayssulfamethoxazole 800 mg / trimethoprim 160 mg oral tablet (3 sources)Dihydrofolate Reductase Inhibitor Antibacterial, Sulfonamide AntimicrobialStart: 08-10-2024 End: 48-94-0842dwxx 1 tablet by mouth twice dailySulfamethoxazole-Trimethoprim 800-160 mg tablet Discontinued 1 TAB PO Twice daily August 10, 2024 12:00am May 12, 2025 9:44am Problems Active Problems Problem ClassificationProblemDateDocumented DateEpisodic/ChronicAllergic reactions (12 sources)Allergic contact dermatitis caused by plant material; Translations: [Allergic contact dermatitis due to plants, except food]02-78-2460JzohgbviXhswbr (5 sources)Asthma; Translations: [Unspecified asthma, uncomplicated]Onset: 82-95-1604HetanvvUbjdixp obstructive pulmonary disease and bronchiectasis (6 sources)Bronchitis; Translations: [Bronchitis, not specified as acute or chronic]43-17-9430XgwiaiveVfhgwaqyucvkg symptoms and ill-defined conditions (3 sources)Genitourinary symptoms; Translations: [Unspecified symptoms and signs involving the genitourinary system]35-44-2393JvmyjupuHbmwwemycxpec and screening for infectious disease (1 source)Encounter for screening for human papillomavirus (HPV); Translations: [ENC SCREENING HUMAN PAPILLOMAVIRUS]Onset: 60-38-6122OqynkmtoTmltatteuh infection (5 sources)Bacterial gastroenteritis; Translations: [Bacterial intestinal infection, unspecified]EpisodicOther circulatory disease (1 source)Elevated blood-pressure reading without diagnosis of hypertension; Translations: [Elevated blood-pressure reading, without diagnosis of hypertension]EpisodicOther connective tissue disease (5 sources)Muscle pain; Translations: [Myalgia, unspecified site]EpisodicOther hereditary and degenerative nervous system conditions (4 sources)Other specified forms of tremor; Translations: [OTHER SPECIFIED FORMS OF TREMOR]Onset: 57-76-0305PnoogtrLbvdd hereditary and degenerative nervous system conditions (4 sources)Intention tremor; Translations: [Other specified forms of tremor] ChronicOther hereditary and degenerative nervous system conditions (1 source)Tremor; Translations: [Other specified forms of tremor]ChronicOther inflammatory condition of skin (2 sources)Intertrigo; Translations: [Erythema intertrigo]28-59-3304Swrhsnse Other nervous system disorders (1 source)Tremor, unspecified; Translations: [TREMOR UNSPECIFIED]Onset: 54-42-8344CrdhqhooTnjyp nutritional; endocrine; and metabolic disorders (2 sources)Body mass index (BMI) 27.0-27.9, adultEpisodicOther nutritional; endocrine; and metabolic disorders (4 sources)OverweightEpisodicOther nutritional; endocrine; and metabolic disorders (1 source)Body mass index (BMI) 25.0-25.9, adultEpisodicOther nutritional; endocrine; and metabolic disorders (1 source)Body mass index 25-29 - overweight; Translations: [Body mass index (BMI) 27.0-27.9, adult]EpisodicOther screening for suspected conditions (not mental disorders or infectious disease) (20 sources)Other specified abnormal findings of blood chemistry; Translations: [Encounter for screening for malignant neoplasm of cervix]Onset: 07-29-2022 EpisodicOther skin disorders (1 source)Alopecia; Translations: [Nonscarring hair loss, unspecified]Episodic Other upper respiratory disease (5 sources)Seasonal allergic rhinitis; Translations: [Other allergic rhinitis] Onset: 73-62-1267YmbgzjaQotgg upper respiratory infections (1 source)Chronic sinusitis; Translations: [Chronic sinusitis, unspecified] ChronicOther upper respiratory infections (2 sources)Acute maxillary sinusitis; Translations: [Acute recurrent maxillary sinusitis]Onset: 08-34-0545PozybyyoZtgingml codes; unclassified (6 sources)Family history of cancer of colon; Translations: [Family history of malignant neoplasm of digestiveorgans]19-80-1623QbqorckmTssahase codes; unclassified (2 sources)Family history of malignant neoplasm of digestive organs; Translations: [Family history of malignant neoplasm of gastrointestinal tract] 73-61-4254NbivonrjByivvru disorders (20 sources)Thyrotoxicosis with diffuse goiter without thyrotoxic crisis or storm; Translations: [Thyrotoxicosis, unspecified without thyrotoxic crisis or storm]Onset: 82-55-4305XpdvqtcFmlhi infection (5 sources)Human papilloma virus infection; Translations: [Papillomavirus as the cause of diseases classified elsewhere]Episodic Past or Other Problems Problem ClassificationProblemDateDocumented DateEpisodic/ChronicAbdominal pain (1 source)Abdominal pain; Translations: [Abdominal pain, other specified site] Onset: 14-61-2798CgdtqybtHhnkt bronchitis (1 source)Acute bronchitis; Translations: [Acute bronchitis, unspecified] Resolved: 13-74-8025RyviiibdDbejnex dysrhythmias (15 sources)Palpitations; Translations: [Palpitations]Onset: 08-25-2022 39-37-9738HzpwcsesIqyiabchfbof; infection of eye (except that caused by tuberculosis or sexually transmitteddisease) (1 source)Acute conjunctivitis; Translations: [Unspecified acute conjunctivitis] Onset: 74-44-2337EugoxcrhQwfno infections; including parasitic (1 source)Helminth infection; Translations: [Unspecified helminth infection] Onset: 18-73-1687CgicmkaaUjamu nervous system disorders (14 sources)Tremor; Translations: [Tremor, unspecified]Onset: 10-22-2024 70-75-9666CqvfdrbxRbgxr non-traumatic joint disorders (1 source)Shoulder joint pain; Translations: [Pain in right shoulder]Onset: 20-37-5191MyitqvnfBvkia nutritional; endocrine; and metabolic disorders (1 source)Underweight; Translations: [Underweight] Resolved: 92-26-7252SkjrrgwmNpabaylaqel; intervertebral disc disorders; other back problems (2 sources)Neck pain; Translations: [Cervicalgia]Onset: 03-13-2017 Resolved: 65-74-0875Qdiccaij Results Test NameValueInterpretationReference RangeFacilityLaboratory - Chemistry and Chemistry - challengeOrdered By: Kallie Morel on 67-80-6180Cxwg T4 [Mass/Vol] 1.18 ng/dL0.76-1.46[facility] CenterTSH Qn1.157 m[IU]/L 0.358-3.740[facility] CenterNo Panel InformationOrdered By: Kallie Morel on 22-05-9939Ffjy Triiodothyronine2.50 pg/mL2.18-3.98[facility] CenterIGP,APTIMA HPV,AGE GDLNon 75-52-3410WUI GDLN ACOG TESTING Note.NOMS HealthcareComment on above:TESTS RESULT FLAG UNITS REF RANGE LAB Clinician Provided Cytology Information Source.............Cervix;Endocervix No. of containers..01 ThinPrep Vial Age Algo ACOG Ivanna... FLAG LEGEND: L-Low Normal,H-High Normal,LL-Alert Low,HH-Alert High <-Panic Low,>-Panic High,A-Abnormal,AA-Critical Abnormal Performed at: 01 =[address] [address] Binta Fry MD, HPV APTIMANegativeNegativeNOMS HealthcareComment on above:This nucleic acid amplification test detects fourteen high- risk HPV types (16,18,31,33,35,39,45,51,52,56,58,59,66,68) without differentiation. Performed at: =[address] [id number] Vehicle Upholsterer: Binta Fry MD, Phone: [phone] Performed at: [address] [id number] Vehicle Upholsterer: Binta Fry MD, Phone: [phone] IGP, APTIMA HPV, RFX 16/18,45Note.NOMS HealthcareComment on above:TESTS RESULT FLAG UNITS REF RANGE LAB DIAGNOSIS: 02 NEGATIVE FOR INTRAEPITHELIAL LESION OR MALIGNANCY. Specimen adequacy: 02 Satisfactory for evaluation. Endocervical and/or squamous metaplastic cells (endocervical component) are present. Performed by: Malgorzata Meier, Non Destructive Testing Inspector (ASCP) . 02 Note: Note 02 The [...] <-Panic Low,>-Panic High,A-Abnormal,AA-Critical Abnormal Performed at: [address] [address] Binta Fry MD, BRUSH-SPATULA CERVIX ENDOCERVIX CLINISYNCNOMS [facility] papilloma virus 16+18+31+33+35+39+45+51+52+56+58+59+66+68 DNA [Presence] in CerOrdered By: Elli Valverde on 36-79-8473DKY 16+18+31+33+35+39+45+51+52+56+58+59+66+68 DNA Probe+sig amp Ql (Cvx)NegativeNegativeKettering Health – Soin Medical CenterComment on above: This nucleic acid amplification test detects fourteen high-risk HPV types (16,18,31,33,35,39,45,51,52,56,58,59,66,68)without differentiation.Performed at: = - [facility] [id number] Director: Binta Fry MD, Phone: [phone] at: [facility] [address] [id number] Director: Binta Fry MD, Phone: [phone] Panel InformationOrdered By: Elli Valverde on 41-76-6950WBJ High Risk Other CommentNote.[facility] Medical CenterComment on above:TESTS RESULT FLAG UNITS REF RANGE LAB DIAGNOSIS: 02 NEGATIVE FOR INTRAEPITHELIAL LESION OR MALIGNANCY.Specimen adequacy: 02 Satisfactory forevaluation. Endocervical and/or squamous metaplastic cells (endocervical component) are present.Performed by: Malgorzata Meier, Non Destructive Testing Inspector ([facility]). 02Note: Note 02 The Pap smear [...] LEGEND: L-Low Normal,H-High Normal,LL-Alert Low,HH-Alert High <-Panic Low,>- Panic High,A-Abnormal,AA-Critical Abnormal Performed at:[address] [address] Binta Fry MD, Zpvhroxpf Lab Test Patient AgeNote.[facility] Medical CenterComment on above:TESTS RESULT FLAG UNITS REF RANGE LAB Clinician Provided Cytology Information Source.............Cervix;Endocervix No. of containers..01 ThinPrep VialAge Roberto ACOG Ivanna... 30-65 FLAG LEGEND: L-Low Normal,H-High Normal,LL-Alert Low,HH-Alert High <-Panic Low,>-Panic High,A- Abnormal,AA-Critical Abnormal Performed a t:01 =G [facility] [address] [address] Binta Fry MD, Xbekyjlm Calc (S) [Mass/Vol]on 40-62-6031Jwvpomet (S) [Mass/Vol]3.4 g/dLKettering Health – Soin Medical CenterLaboratory - Chemistry and Chemistry - challengeon 59-54-4973Lsqsoat [Mass/Vol]3.9 g/dL3.4-5.0[facility] CenterALP [Catalytic activity/Vol]65 U/T56-743BpkuzwrgrKettering Health – Soin Medical CenterALT [Catalytic activity/Vol]22 U/V10-90YtcjcbvlkKettering Health – Soin Medical CenterAST [Catalytic activity/Vol]20 U/J55-64QrwemhkpwKettering Health – Soin Medical CenterBilirubin [Mass/Vol]0.5 mg/dL0.2-1.0[facility] Bilirubin.direct [Mass/Vol]0.1 mg/dL0.0-0.2FDunlap Memorial HospitalFree T4 [Mass/Vol]0.85 ng/dL0.76-1.46[facility] Medical CenterProtein [Mass/Vol]7.3 g/dL6.4-8.2FDunlap Memorial HospitalTSH Qn1.716 m[IU]/L 0.358-3.740[facility] CenterNo Panel Informationon 05-18-2024 Free Triiodothyronine2.57 pg/mL2.18-3.98[facility] Health Systemerum or plasma albumin/globulin mass ratioon 37-48-3542Dvgfxsw/Globulin [Mass ratio] 1.1 {ratio}[facility] Medical CenterHCG ( test) IA.rapid Ql (U) Ordered By: Tiffany Perea on 23-21-8523IYQ ( test) Ql (U)Negative [facility] Medical CenterHCG,Urineon 46-71-7321Xtha HCG ( test) Ql (U)NegativeNoCone Health MedCenter High Point Physician GroupComment on above:Result Comment: PERFORMED BY: [place] [address] PATHOLOGIST STEWARD/STEWARDESS DINING ROOM JAGDISH DENTON M.D.Performed By: #### UHCG #### [place] [address] USALon 24-04-8965DRddaxwcw: [id number] Received: 03/31/24 Status: YVONNE Tee Num: [id number] Spec Type: Surgical Subm Dr: Tiffany Perea DO Tissues: A Colon Biopsy (CECAL POLYP) B Colon Biopsy (TRANSV POLYP) Procedures: HE/4, Gross/Micro L4/2 Age/ Patient Sex Location Account Attending Physician Allan Avendaño 48/F [id number] Tiffany Perea DO SPEC NUM: [id number] RECD: 03/31/24 STATUS: YVONNE TEE NUM: [id number] LIZETH: 03/31/24- SUBM DR: Tiffany Perea DO ENTERED: 03/31/24 [facility] DR: SPEC TYPE: Surgical DEPT: [...] tissue fragment, entirely submitted in B1. Specimen: [id number] Received: 03/31/24 Status: YVONNE Steeledwaine Num: [id number] Spec Type: Surgical Subm Dr: Tiffany Perea, Tissues: A Colon Biopsy (CECAL POLYP) B Colon Biopsy (TRANSV POLYP) Procedures: HE/Ling, Gross/Micro L4/2 Patient: Allan Avendaño [id number] (Continued) Specimen: [id number] Received: 03/31/24 (Continued) Signed (signature on file) Ally Abraham MD 04/01/24 1925 Specimen: [id number] Received: 03/31/24 Status: YOVNNE Tee Num: [id number] Spec Type: Surgical Subm Dr: Tiffany Perea DO Tissues: A Colon Biopsy (CECAL POLYP) B Colon Biopsy (TRANSV POLYP) Procedures: /4, Gross/Micro L4/2 Patient: TalonProsper dardenwesley Salter [id number] (Continued) Specimen: [id number] Received: 03/31/24 (Continued) CPT Codes 68578L5 Specimen: [id number] Received: 03/31/24 Status: YVONNE Tee Num: [id number] Spec Type: Surgical Subm Dr: Tiffany Perea DO Tissues: A Colon Biopsy (CECAL POLYP) B Colon Biopsy (TRANSV POLYP) Procedures: HE/Ling, Gross/Micro L4/2 Patient: Allan Avendaño [id number] (Continued) Signed (signature on file) Nicholas-Abdi Abraham MD 04/01/[address] [place] [address] Physician [facility] papilloma virus 16+18+31+33+35+39+45+51+52+56+58+59+66+68 DNA [Presence] in Damon 20-66-5266RCK 16+18+31+33+35+39+45+51+52+56+58+59+66+68 DNA Probe+sig amp Ql (Cvx)Negative NegativeKettering Health – Soin Medical CenterComment on above:This nucleic acid amplification test detects fourteen high-risk HPV types (16,18,31,33,35,39,45,51,52,56,58,59,66,68)without differentiation.Performed at: =G - [facility] Cqeskzoifm[address] [facility], [place] [id number] Director: Binta Fry MD, Phone: [phone] at: WB - [facility] Cohtylaygw[address] [facility], [place] [id number] Director: Binta Fry MD, Phone: [phone] Panel Informationon 71-23-0319OAQ High Risk Other CommentNote. [facility] Medical CenterComment on above:TESTS RESULT FLAG UNITS REF RANGE LAB DIAGNOSIS: 02 NEGATIVE FOR INTRAEPITHELIAL LESION OR MALIGNANCY.Specimen adequacy: 02 Satisfactory forevaluation. Endocervical and/or squamous metaplastic cells (endocervical component) are present.Performed by: Malgorzata Landa, Icing And Glaze Maker ([facility]). 02Note: Note 02 The Pap smear [...] of an image guided system.HPV Genotype Reflex No te 02 Criteria not met, HPV Genotype not performed. FLAG LEGEND: L-Low Normal,H-High Normal,LL-Alert Low,HH-Alert High <-Panic Low,>-P anic High,A-Abnormal,AA-Critical Abnormal Performed at:02 WB [facility] [address] [address] Binta Fry MD, Xxofvqakj Lab Test Patient [facility] CenterComment on above:TESTS RESULT FLAG UNITS REF RANGE LAB Clinician Provided Cytology Information Source.............Cervix;Endocervix No. of containers..01 ThinPrep VialAge Algo ACOG Ivanna... 30-65 FLAG LEGEND: L-Low Normal,H-High Normal,LL-Alert Low,HH-Alert High <-Panic Low,>-Panic High,A- Abnormal,AA-Critical Abnormal Performed a t:01 =G [facility] [address] [place] [address] Binta Fry MD, BS TOMOSYNTHESIS SCREENING BIon 00-06-5[address] [address] Mammography Report Signed Patient: ALLAN AVENDAÑO MR#: [id number] : 1975 Acct:[id number] Age/Sex: 48 / F ADM Date: 01/23/24 Loc: MAMMO Attending Dr: Merrill Amaya D.O. Ordering Physician: Merrill Amaya D.O. Results: Date of Service: 01/23/24 Follow Up: Procedure(s): MM tomosynthesis screening BI Accession Number(s): [id number] cc: Shonna Brennan M.D.; Merrill Amaya D.O. Patient Name: ALLAN AVENDAÑO MR#: [id number] : 1975 Exam Date: 01/23/2024 Ordering Doctor: [...] Family Cancers None LOCATION: [facility] BREAST COMPOSITION: Heterogeneously dense,which may obscure [...] [place] M.D. Signed By: 01/23/24 0955 DD/ 0954 TD/TT: Soa Integration Architect:TBHRadiology, Radiologist, - 01/23/2024 [place] [address] Mammography Report Signed Patient: ALLAN AVENDAÑO MR#: [id number] : 1975 Acct:[id number] Age/Sex: 48 / F ADM Date: 01/23/24 Loc: MAMMO Attending Dr: Merrill Amaya D.O. Ordering Physician: Merrill Amaya D.O. Results: Date of Service: 01/23/24 Follow Up: Procedure(s): MM tomosynthesis screening BI Accession Number(s): [id number] cc: Shonna Brennan M.D.; Merrill Amaya D.O. Patient Name: ALLAN AVENDAÑO MR#: [id number] : 1975 Exam Date: 01/23/2024 Ordering Doctor: [...] Family Cancers None LOCATION: [facility] BREAST COMPOSITION: Heterogeneously dense,which may obscure [...] [place] M.D. Signed By: 01/23/24 0955 DD/ 0954 TD/TT: Soa Integration Architect: [facility]ID[facility] HOSPITALMaurice [facility] Rehabilitation HospitalRadiology Study observation (narrative)[facility] TOMOSYNTHESIS SCREENING BIOrdered By: Radiologist Radiology on 34-74-6892PTUKMosaic Life Care at St. Joseph Work Phone: FREE T3on 50-47-0409VVAL T32.54 pg/mlLNormal2.18-3.98 [facility] HospitalCombeaumont hospital on above:Performed By: #### FT3, TSH #### [facility] [address] [place] [address] Dr. Celso Rivera T4on 41-29-4119Qxoo T4 [Mass/Vol]0.70 ng/dLCritically low 0.76-1.46[facility] on above:Performed By: #### FT4 #### [facility] [address] [place] [address] Dr. Celso Montenegro ACOG PANEL 2: 30 to 65on 01-18-2023..NormalThe [facility] on above:Result Comment: Performed at: KWCYTPerformed By: #### CMP, TSH #### [facility] [address] [place] [address] Dr. Celso Farrell Gdln ACOG Suagkfv03-61ByomksEagUniversity Hospitals Lake West Medical CenterCombeaumont hospital on above:Performed By: #### CMP, TSH #### [facility] [address] [place] [address] Dr. Celso AbrahamDIAGNOSIS:CommentOhioHealth Riverside Methodist Hospital on above: Result Comment: NEGATIVE FOR INTRAEPITHELIAL LESION OR MALIGNANCY. Performed at: KWCYTPerformed By: #### CMP, TSH #### [facility] [address] [place] [address] Dr. Celso Lowe AptimaNegativeNormalNegativeClinton Memorial Hospital on above:Result Comment: This nucleic acid amplification test detects fourteen high-risk HPV types (16,18,31,33,35,39,45,51,52,56,58,59,66,68) without differentiation. Performed at: =GPerformed By: #### CMP, TSH #### [facility] [address] [place] [address] Dr. Celso Lowe Genotype ReflexCommentNoKettering Health Main Campus on above:Result Comment: Criteria not met, HPV Genotype not performed. Performed at: KWCYTPerformed By: #### CMP, TSH #### [facility] [address] [place] [address] Dr. Celso AbrahamMethodology:CommentOhioHealth Riverside Methodist Hospital on above: Result Comment: This liquid based ThinPrep(R) pap test was screened with the use of an image guided system. Performed at: WBPerformed By: #### CMP, TSH #### [facility] [address] [place] [address] Dr. Celso AbrahamNote:CommentNoKettering Health Main Campus on above:Result Comment: The Pap smear is a screening test designed to aid in the detection of premalignant and malignant conditions of the uterine cervix. It is not a diagnostic procedure and should not be used as the sole means of detecting cervical cancer. Both false-positive and false-negative reports do occur. . Performed at: WBPerformed By: #### CMP, TSH #### [facility] [address] [place] [address] Dr. Celso Caryformed by:CommentNoKettering Health Main Campus on above: Result Comment: Vee Lopez, Icing And Glaze Maker (ASCP) Performed at: KWCYTPerformed By: #### CMP, TSH #### [facility] [address] [place] [address] Dr. Celso AbrahamSpecimejonathan adequacy:CommentOhioHealth Riverside Methodist Hospital on above:Result Comment: Satisfactory for evaluation. Endocervical and/or squamous metaplastic cells (endocervical component) are present. Performed at: KWCYTPerformed By: #### CMP, TSH #### [facility] [address] [place] [address] Dr. Celso Mckinley 05-58-1000HUI0.687 uIU/mLNormal0.358-3.740The [facility] on above:Performed By: #### FT3, TSH #### [facility] [address] [place] [address] Dr. Celso Abraham MAMM SCREEN 3D NATI CADon [id number] MAMM SCREEN 3D NATI CAD Patient: ALLAN AVENDAÑO Exam Date: 01/01/2023 : 1975 Gender:F Ordering : DR TYSON GAUTAM . Admission #: [id number] Family : Order #: [id number] CLICK HERE TO VIEW EXAM RADIOLOGY REPORT [...] Family Cancers None LOCATION: [facility] BREAST COMPOSITION: Heterogeneously dense,which may obscure [...] by: Chema Espana M.D. on 01/02/2023 at 14:12NoUniversity Hospitals Lake West Medical CenterTHYROTROPIN RECEPTOR ABon 56-03-4669Cacoxmdqhjx Receptor Ab, Serum3.12 IU/LCritically high0.00-1.75The [facility] HospitalComment on above:Performed By: #### CMP, TSH #### [facility] [address] [address] [address] Celso Rivera T3on 73-91-9519OKOX T32.19 pg/mlLNormal2.18-3.98The [facility] HospitalComment on above:Performed By: #### TSH, FT3, LIVER #### [facility] [address] [address] [address] Celso Rivera T4on 25-78-6258Pbhf T4 [Mass/Vol]0.72 ng/dLCritically low 0.76-1.46The [facility] HospitalComment on above:Performed By: #### CMP, TSH #### [facility] [address] [address] [address] Celso Mayen PROFILEon 32-68-4453Xqvcoem [Mass/Vol]3.6 g/dLNormal3.4-5.0 The [facility] HospitalComment on above:Performed By: #### TSH, FT3, LIVER #### [facility] [address] [address] [address] Celso AbrahamAlbumin/Globulin [Mass ratio]1.1 {ratio}NormalThe [facility] on above:Performed By: #### TSH, FT3, LIVER #### [facility] [address] [place] [address] Dr. Celso Westbrook [Catalytic activity/Vol]136 U/LCritically zolx68-085Axe [facility] HospitalComment on above:Performed By: #### TSH, FT3, LIVER #### [facility] [address] [place] [address] Dr. Celso Bill [Catalytic activity/Vol]32 U/IVqfkyp51-77Tjv [facility] HospitalCombeaumont hospital on above:Performed By: #### TSH, FT3, LIVER #### [facility] [address] [place] [address] Dr. Celso Chang [Catalytic activity/Vol]24 U/UUdfhpn07-11Rid [facility] Hospitalment on above:Performed By: #### TSH, FT3, LIVER #### [facility] [address] [place] [address] Dr. Celso Thomas, CONJUGATED0.1 mg/dLNormal0.0-0.2The [facility] Comment on above:Performed By: #### TSH, FT3, LIVER #### [facility] [address] [place] [address] Dr. Celso Martinezirubin [Mass/Vol]0.4 mg/dLNormal0.2-1.0The [facility] Comment on above:Performed By: #### TSH, FT3, LIVER #### [facility] [address] [address] [address] Celso AbrahamGlobulin (S) [Mass/Vol]3.4 g/dLNormalThe [facility] HospitalComment on above:Performed By: #### TSH, FT3, LIVER #### [facility] [address] [address] [address] Celso AbrahmaProtein [Mass/Vol]7.0 g/dLNormal6.4-8.2The [facility] Comment on above:Performed By: #### TSH, FT3, LIVER #### [facility] [address] [place] [address] Dr. Celso Mckinley 70-32-4979GIG Qnm[IU]/LCritically low0.358-3.740The [facility] HospitalComment on above:Performed By: #### TSH, FT3, LIVER #### [facility] [address] [place] [address] Dr. Celso AbrahamTHYROID ANTIBODIESon 35-20-9777Xpfagzvailwrf Lderphpc94.7 IU/mL Critically high0.0-0.9The [facility] HospitalComment on above:Result Comment: Thyroglobulin Antibody measured by [employer] MethodologyPerformed By: #### CMP, TSH #### [facility] [address] [place] [address] Dr. Celso AbrahamThyroid Peroxidase (TPO) Ab115 IU/mLCritically high0-34The [facility] HospitalComment on above:Performed By: #### CMP, TSH #### [facility] [address] [place] [address] Dr. Celso AbrahamTHYROTROPIN RECEPTOR ABon 83-48-1374Ngvnakkjazh Receptor Ab, Serum7.58 IU/LCritically high0.00-1.75The [facility] HospitalComment on above: Performed By: #### THYRABT #### [facility] [address] [place] [address] Dr. Celso AbrahamNM THY SCAN W [place] 19-15-2861ZK THY SCAN W UPTEXAMINATION: NM THY SCAN W UPT HISTORY: Palpitations [...] Electronically authenticated by: BEV GOLDSTEIN Date: 2022-08-23 08:02[facility] HospitalFR T3on 31-70-5089JUYM T37.90 pg/mlLCritically high2.18-3.98 The [facility] HospitalComment on above:Performed By: #### CMP, TSH #### [facility] [address] [place] [address] Dr. Celso Rivera T4on 92-94-3715Zone T4 [Mass/Vol]2.01 ng/dLCritically high 0.76-1.46The [facility] HospitalComment on above:Performed By: #### CMP, TSH #### [facility] [address] [place] [address] Dr. Celso Mayen PROFILEon 52-54-6631Igkvwao [Mass/Vol]3.4 g/dLNormal3.4-5.0 The [facility] HospitalComment on above:Performed By: #### CMP, TSH #### [facility] [address] [place] [address] Dr. Celso AbrahamAlbumin/Globulin [Mass ratio]1.0 {ratio}NormalThe [facility] HospitalComment on above:Performed By: #### CMP, TSH #### [facility] [address] [place] [address] Dr. Celso Westbrook [Catalytic activity/Vol]160 U/LCritically shyc00-171Axq [facility] Hospitalment on above:Performed By: #### CMP, TSH #### [facility] [address] [place] [address] Dr. Celso HoltT [Catalytic activity/Vol]34 U/NMktjgr40-58Iox [facility] HospitalComment on above:Performed By: #### CMP, TSH #### [facility] [address] [place] [address] Dr. Celso AbrahamAST [Catalytic activity/Vol]14 U/LCritically cbg60-12Kkm [facility] HospitalComment on above:Performed By: #### CMP, TSH #### [facility] [address] [place] [address] Dr. Celso MartinezI, CONJUGATED0.1 mg/dLNormal0.0-0.2The [facility] Comment on above:Performed By: #### CMP, TSH #### [facility] [address] [place] [address] Dr. Celso Martinezirubin [Mass/Vol]0.2 mg/dLNormal0.2-1.0[facility] Comment on above:Performed By: #### CMP, TSH #### [facility] [address] [place] [address] Dr. Celso AbrahamGlobulin (S) [Mass/Vol]3.4 g/dLNormalThe [facility] HospitalComment on above:Performed By: #### CMP, TSH #### [facility] [address] [place] [address] Dr. Celso AbrahamProtein [Mass/Vol]6.8 g/dLNormal6.4-8.2The [facility] Comment on above:Performed By: #### CMP, TSH #### [facility] [address] [place] [address] Dr. Celso AbrahamTSHojonathan 84-73-4547MPU Qnm[IU]/LCritically low0.358-3.740The [facility] HospitalComment on above:Performed By: #### CMP, TSH #### [facility] [address] [place] [address] Dr. Celso Shell THYROIDon 14-30-6902YI THYROIDEXAMINATION: US THYROID HISTORY: Thyrotoxicosis COMPARISON: No relevant [...] Electronically authenticated by: CHEMA ESPANA Date: 2022-08-22 16:07[facility] HospitalCERULOPLASMINon 82-34-7430Olqiavhzktgbj82.9 mg/dLNormal 19.0-39.0The [facility] HospitalComment on above:Performed By: #### CEUROPL #### [facility] [address] [place] [address] Dr. Celso Rivera T4on 34-76-1261Twia T4 [Mass/Vol]2.34 ng/dLCritically high 0.76-1.46The [facility] HospitalComment on above:Performed By: #### CMP, TSH #### [facility] [address] [place] [address] Dr. Celso AbrahamPROF 14(COMP METB)on 07-99-5837Nicmpdk [Mass/Vol]3.8 g/dLNormal 3.4-5.0The [facility] HospitalComment on above:Performed By: #### CMP, TSH #### [facility] [address] [place] [address] Dr. Celso AbrahamAlbumin/Globulin [Mass ratio]1.1 {ratio}NormalThe [facility] HospitalComment on above:Performed By: #### CMP, TSH #### [facility] [address] [place] [address] Dr. Celso AbrahamALP [Catalytic activity/Vol]163 U/LCritically ofbl94-239Wjf [facility] HospitalComment on above:Performed By: #### CMP, TSH #### [facility] [address] [address] [address] Celso Bill [Catalytic activity/Vol]41 U/IFskykh47-62Pmv [facility] HospitalComment on above:Performed By: #### CMP, TSH #### [facility] [address] [address] [address] Celso Juarezon gap [Moles/Vol]13.4 mmol/LNormalThe [facility] Comment on above:Performed By: #### CMP, TSH #### [facility] [address] [address] [address] Celso AbrahamAST [Catalytic activity/Vol]21 U/ZZeesyx88-56Cto [facility] HospitalComment on above:Performed By: #### CMP, TSH #### [facility] [address] [address] [address] Celso AbrahamBilirubin [Mass/Vol]0.5 mg/dLNormal0.2-1.0The [facility] Comment on above:Performed By: #### CMP, TSH #### [facility] [address] [address] [address] Celso AbrahamCalcium [Mass/Vol]9.8 mg/dLNormal8.5-10.1The [facility] Comment on above:Performed By: #### CMP, TSH #### [facility] [address] [address] [address] Celso AbrahamChloride [Moles/Vol]104 mmol/EAaqqxr26-115Sir [facility] Comment on above:Performed By: #### CMP, TSH #### [facility] [address] [address] [address] Celso AbrahamCO2 [Moles/Vol]24.9 mmol/WIgftkw60.0-32.0The [facility] Comment on above:Performed By: #### CMP, TSH #### [facility] [address] [address] [address] Celso AbrahamCreatinine [Mass/Vol]0.67 mg/dLNormal0.55-1.02The [facility] HospitalComment on above:Performed By: #### CMP, TSH #### [facility] [address] [address] [address] Celso RichardsonGFR-AF ALBANIAN>60Normal>=60The [facility] HospitalComment on above:Performed By: #### CMP, TSH #### [facility] [address] [address] [address] Celso RichardsonGFR-NON AF ALBANIAN>60Normal>=60The [facility] HospitalComment on above:Performed By: #### CMP, TSH #### [facility] [address] [address] [address] Celso AbrahamGlobulin (S) [Mass/Vol]3.6 g/dLNormalThe [facility] HospitalComment on above:Performed By: #### CMP, TSH #### [facility] [address] [address] [address] Celso AbrahamGlucose [Mass/Vol]104 mg/sOIxlinb63-694Hcs [facility] Comment on above:Performed By: #### CMP, TSH #### [facility] [address] [address] [address] Celso AbrahamPotassium [Moles/Vol]4.3 mmol/LNormal3.5-5.1The [facility] Comment on above:Performed By: #### CMP, TSH #### [facility] [address] [address] [address] Celso AbrahamProtein [Mass/Vol]7.4 g/dLNormal6.4-8.2The [facility] Comment on above:Performed By: #### CMP, TSH #### [facility] [address] [address] [address] Celso AbrahamSodium [Moles/Vol]138 mmol/GDpeyhi595-899Ipt [facility] Comment on above:Performed By: #### CMP, TSH #### [facility] [address] [address] [address] Celso AbrahamUrea nitrogen [Mass/Vol]14.0 mg/dLNormal7.0-18.0The [facility] HospitalComment on above:Performed By: #### CMP, TSH #### [facility] [address] [address] [address] Celso AbrahamUrea nitrogen/Creatinine [Mass ratio]20.9 mg/mgNormalThe [facility] HospitalComment on above:Performed By: #### CMP, TSH #### [facility] [address] [address] [address] Celso Mckinley 53-93-4855RKW Qnm[IU]/LCritically low0.358-3.740The [facility] HospitalComment on above:Performed By: #### CMP, TSH #### [facility] [address] [address] [address] Celso Abraham Vital Signs Date TimeVital SignValuePerforming TyegkdeznGdubiqzs72-77-7694 09:50-0400Body hckcox451.5 Kandis Morel MD Work Phone: [phone] JosephOrggijljtt44-52-9802 09:50-0400Body mass index (BMI) [Ratio]25.61 kg/g9ZsfscKallie Morel MD Work Phone: [phone] [place], [place] [address]Lflmbhcpsb49-19-9290 09:50-0400Body lvkgho89.5 kg Kallie Morel MD Work Phone: [phone] [place], [place] [address]Nkjnbxmpur43-19-4007 09:50-0400Heart rate74 /min Kallie Morel MD Work Phone: [phone] [place], [place] [address]Ntgkeopjek49-82-4970 09:50-0400Respiratory rate16 /minKallie Morel MD Work Phone: [phone] [place], [place] [address]Kxqygvgwao46-52-8951 09:50-2915PnC4% (BldA) [Mass fraction]99 %Kallie Morel MD Work Phone: [phone] [place], [place] [address]Rzfxehkzsr84-45-4188 13:54-0400Body qigsft262.48 cmShonna Brennan MD Work Phone: [facility]07-16-2025 13:54-0400 Body mass index (BMI) [Ratio]25 kg/w6IxuxfsShonna Brennan MD Work Phone: [phone]07-16-2025 13:54-0400 Body ltzrgozbvfy34.9 [degF]Shonna Brennan MD Work Phone: [phone] [address]07-16-2025 13:54-0400 Body .14 kgShonna Brennan MD Work Phone: [phone]07-16-2025 13:54-0400 Diastolic blood fpxfmxir30 mm[Hg]Shonna Brennan MD Work Phone: [phone] [place], [place] 7127007-16-2025 13:54-0400 Heart rate81 /Amy Brennan MD Work Phone: [phone] [address]07-16-2025 13:54-0400 SaO2% (BldA) [Mass fraction]99 %Shonna Brennan MD Work Phone: [phone] [address]07-16-2025 13:54-0400 Systolic blood mm[Hg]Shonna Brennan MD Work Phone: [phone] [place], [place] 7127007-02-2025 09:42-0400 Body nihziy747.48 cmShonna Brennan MD Work Phone: [phone] [place], [place] 7127007-02-2025 09:42-0400 Body mass index (BMI) [Ratio]26.3 kg/h4BiawmmShonna Brennan MD Work Phone: [phone]07-02-2025 09:42-0400 Body nqxdfvezprp02.5 [degF]Shonna Brennan MD Work Phone: [phone]07-02-2025 09:42-0400 Body yzwhvq52.31 kgShonna Brennan MD Work Phone: [phone]07-02-2025 09:42-0400 Heart rate71 /Amy Brennan MD Work Phone: [phone]07-02-2025 09:42-0400 SaO2% (BldA) [Mass fraction]99 %Shonna Brennan MD Work Phone: [facility]06-18-2025 09:02-0400 Body mass index (BMI) [Ratio]26.34 kg/m2Elli PINEDA Work Phone: [facility] JosephOwievneqck98-94-4276 09:02-0400Body zgoqfl01.32 kgElli PINEDA Work Phone: [facility] JosephIlhbdjfwcs75-29-6391 09:02-0400Diastolic blood kmbgqcza67 mm[Hg]Elli PINEDA Work Phone: [facility] JosephGfxzvqsjlu78-10-8727 09:02-0400Systolic blood qiowvxxh322 mm[Hg]Elli PINEDA Work Phone: [facility] JosephBpchkaceuc12-64-9141 09:10-0500Body .5 Kandis Morel MD Work Phone: [facility] JosephPbmvwcrywe99-11-9180 09:10-0500Body mass index (BMI) [Ratio]28.72 kg/m3PqtoqKallie Morel MD Work Phone: [phone] [place], [place] [address]Avfwoprbzj39-11-3578 09:10-0500Body aoglor28.22 kgKallei Morel MD Work Phone: [phone] JosephQzktbrifqe26-32-4658 09:10-0500Heart rate81 /min Kallie Morel MD Work Phone: [phone] [place], [place] [address]Xnthsswjyg83-49-3052 09:10-0500Respiratory rate16 /minKallie Morel MD Work Phone: [facility] JosephUqkjtdvhdk75-27-4008 14:35-0400Body hxydcm792.48 cmKet[facility]09-30-2024 14:35-0400Body mass index (BMI) [Ratio]28.4 kg/c5UzfjzmfenKettering Health – [facility] Center09-30-2024 14:35-0400Body vfhdet01.53 kgKettering Health [facility]09-30-2024 14:35-0400Diastolic blood ijdpmpnz77 mm[Hg][facility]09-30-2024 14:35-0400 Heart rate86 /[facility]09-30-2024 14:35-0400Systolic blood bcaufftj899 mm[Hg][facility]08-29-2024 14:25-0400 Body stjerf768.48 cmKettering Health [facility]08-29-2024 14:25-0400Body mass index (BMI) [Ratio]28.7 kg/x2GcyrzqndcKettering Health – Soin Medical Center08-29-2024 14:25-0400Body neunbm50.21 kgKettering Health [facility] Center08-29-2024 14:25-0400Diastolic blood fjmipxft76 mm[Hg][facility] 07-09-2024 14:25-0400Heart rate77 /[facility] 07-09-2024 14:25-0400Systolic blood euwojnlb139 mm[Hg][facility]05-21-2024 09:26-0400Diastolic blood nofpnduj47 mm[Hg]MD Shonna Brennan Work Phone: [phone]05-21-2024 09:26-0400 Heart rate53 /minMD Shonna Brennan Work Phone: [phone] [place], [place] [address]300305-21-2024 09:26-0400 Respiratory rate16 /minMD Shonna Brennan Work Phone: [phone]05-21-2024 09:26-0400 SaO2% (BldA) [Mass fraction]99 %MD Shonna Brennan Work Phone: [phone]05-21-2024 09:26-0400 Systolic blood uodnrtgh069 mm[Hg]MD Shonna Brennan Work Phone: [phone]05-21-2024 07:06-0400 Body .48 cmMD Shonna Brennan Work Phone: [phone]05-21-2024 07:06-0400 Body qybato30 kgMD Shonna Brennan Work Phone: [facility]04-01-2024 10:37-0400 Body rxsdtu611.75 cmKet[facility]04-01-2024 10:37-0400Body mass index (BMI) [Ratio]27 kg/c6GkuwcchpgKettering Health – So[facility] Medical Center04-01-2024 10:37-0400Body ajbtqffnsqx69 [degF][facility]04-01-2024 10:37-0400Body .2 kgKettering Health [facility]04-01-2024 10:37-0400Diastolic blood ekudtioo37 mm[Hg][facility] 02-10-2024 10:37-0400Heart rate72 /minKettering Health – Soin Medical Center 02-10-2024 10:37-0400Systolic blood pfxteisi580 mm[Hg][facility]07-28-2023 11:45-0400Body .75 cmShonna Brennan Other [employer] Other 07-28-2023 11:45-0400Body mass index (BMI) [Ratio]25.2 kg/s3RcijbwShonna Brennan Other [employer] Other 07-28-2023 11:45-0400Body gcucbz15.5 kgLelokishan Anu Other [employer] Other 07-28-2023 11:45-0400Diastolic blood oahhzawr01 mm[Hg] Shonna Brennan Other [employer] Other 07-28-2023 11:45-0400Systolic blood cnutunhd34 mm[Hg] Shonna Brennan Other [employer] Other 05-05-2023 10:00-0400Body uvdenq466.75 cmLelochawesley Brennan Other [employer] Other 05-05-2023 10:00-0400Body mass index (BMI) [Ratio] 25.92 kg/o0Uqbfnu Anu Other [employer] Other 05-05-2023 10:00-0400Body mfydhk29.32 kgShonna Anu Other [employer] Other 05-05-2023 10:00-0400Diastolic blood wydgnqot54 mm[Hg] Shonna Brennan Other [employer] Other 05-05-2023 10:00-0400Systolic blood lqskyqjl14 mm[Hg] Shonna Brennan Other [employer] Other 04-03-2023 14:45-0400Body zonqkc152.75 cmShonna Brennan Other [employer] Other 04-03-2023 14:45-0400Body mass index (BMI) [Ratio]27.9 kg/r4Hkxtup Braun Other [employer] Other 04-03-2023 14:45-0400Body vansqz65.31 kgLelokishan Brennan Other [employer] Other 04-03-2023 14:45-0400Diastolic blood pahsxaeo32 mm[Hg] Shonna Brennan Other [employer] Other 04-03-2023 14:45-4315ChK5% (BldA) [Mass fraction]97 % Shonna Brennan Other [employer] [facility] Other 04-03-2023 14:45-0400Systolic blood wrbdvvny20 mm[Hg] Shonna Brennan Other [employer] [facility] Other Encounters Encounter DateEncounter TypeCare ProviderFacilityStart: 05-27-2025 End: 42-26-9283Taqfjg Estuardo Morel MD Work Phone: [facility] ENDOCRINOLOGYStart: 05-27-2025 End: 93-04-2535Nsdbiz Estuardo Morel MD Work Phone: [facility] ENDOCRINOLOGYStart: 05-27-2025 End: 81-75-9958Dpsfuo outpatient visit 25 minutesKallie Morel MD Work Phone: [facility] ENDOCRINOLOGYComment on above: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); Thyrotoxicosis with diffuse goiter without thyrotoxic crisis or storm ; Tremor, unspecified; PalpitationsStart: 05-27-2025 End: 59-73-0430tpnkhqaortNLNVQ F SABBAGHNot AvailableStart: 05-26-2025 End: 22-93-5264vvkeaqnskzPpjlsf E Braun MD Work Phone: [facility] Work Phone: Start: 05-26-2025 End: 83-44-2070Ohizmbg encounter procedureChantelle Estrada APRN [facility] Work Phone: Start: 32-76-8066Utu-patient / Non-visitKallie Morel MD-[facility] Work Phone: Start: 05-12-2025 End: 83-87-3271tjhqgxcajlJmleks E Braun MD Work Phone: [facility] Work Phone: Start: 05-12-2025 End: 93-44-7701Ysbvkzu encounter procedureChantelle Estrada APRN [facility] Work Phone: Start: 04-28-2025 End: 27-08-3418Jumcuh flowsAmrit PINEDA Work Phone: [facility] B[facility] OBStart: 04-28-2025 End: 39-96-3249Guvokp flowsheetElli PINEDA Work Phone: [facility] BCP OBStart: 04-28-2025 End: 61-27-0624Nnhwmsphz Result EncounterElli PINEDA Work Phone: noms External Department UnsolicitedStart: 04-28-2025 End: 34-73-2643Ejjkepm encounter procedureElli PINEDA Work Phone: noms HealthcareStart: 04-28-2025 End: 36-84-6548Ggerhxdq preventive med est patient 40-64yrsAmy Steven PINEDA Work Phone: [facility] OBComment on above:Well woman exam with routine gynecological examStart: 44-53-8575Alj-patient / Non-visitElli PINEDA -[facility] Work Phone: Start: 04-28-2025 End: 63-55-5381dqtjrfuhhcHCM RAMEYNot AvailableStart: 11-26-2024 End: 44-69-6890Ghpzby outpatient visit 25 minutesKallie Morel MD Work Phone: noms ENDOCRINOLOGYComment on above: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) (Primary Dx); Thyrotoxicosis with diffuse goiter without thyrotoxic crisis or storm (CMS/HCC); Tremor, unspecified; PalpitationsStart: 11-26-2024 End: 17-42-2689jjknaalmcuRUVZH F SABBAGHNot AvailableStart: 08-10-2024 End: 70-28-6892adplgefyhoFzuooifnoUniversity Hospitals Conneaut Medical Center Work Phone: Start: 08-10-2024 End: 55-98-5780Uubbblx encounter procedureFirsweta [facility] Work Phone: Start: 07-09-2024 End: 97-50-8500ktitwkbktxIhdseblqmUniversity Hospitals Conneaut [facility] Center Work Phone: Start: 07-09-2024 End: 97-12-9886Tufsupn encounter procedureF[facility] Work Phone: Start: 74-45-2749Qjb-patient / Non-visitFrye [facility] Work Phone: Start: 03-31-2024 End: 15-78-8304wbqahlbwflJzczojlrp L LyFacility:[facility] Systemtart: 50-33-3813Hwh-patient / Non-visitMD Shonna Brennan Work Phone: [facility] Gastroenterology Work Phone: Start: 03-31-2024 End: 95-15-7378Ktzeoqrnp to same day surgery centerMD Shonna Brennan Work Phone: [facility] Work Phone: Start: 03-31-2024 End: 12-66-7478tqrjltlqloIL Shonna Brennan Work Phone: [facility] Work Phone: Start: 53-96-1543Pbx-patient / Non-visitMD Shonna Brennan Work Phone: [facility] Work Phone: Start: 02-10-2024 End: 86-41-2805gkxievyslbBwyvdqvhiUniversity Hospitals Conneaut Medical Center Work Phone: Start: 02-10-2024 End: 60-58-3319Eizntqa encounter procedureFrye [facility] Work Phone: Start: 01-23-2024 End: 42-73-1860Gpomikysn Result EncounterCorey Monique DO Work Phone: noms External Department UnsolicitedStart: 01-23-2024 End: 32-64-2342Vmyczmuyo Result EncounterCorey Monique DO Work Phone: noms External Department UnsolicitedStart: 06-07-2023 End: 56-94-8664llxhygdiidRwmogs Brennan Other [employer] Other Start: 49-71-3401Lbgygi outpatient visit 15 minutes Shonna [facility] ClinicStart: 03-15-2023 End: 40-80-5028eetdkdtmxmQpkxvn Brennan Other [employer] Other Start: 87-89-5741Wymnli outpatient visit 15 minutes Shonna [facility]lanos [facility] ClinicStart: 02-11-2023 End: 08-98-2291tcfhliwawrIglvcp Brennan Other [employer] Other Start: 05-58-8735Szlhgg outpatient visit 15 minutes [facility]onna [facility] ClinicStart: 01-18-2023 End: 62-48-9904utdotlfpcvHWNWV SABBAGHFacility:M0Hqyai: 01-15-2023 End: 76-61-0445tjzrvdietsWD TYSON POPSmita .Facility:L6Rqawr: 01-01-2023 End: 84-80-5431ekhmmjuqyfUU TYSON GAUTAM .Facility:G8Fsriw: 10-23-2022 End: 51-36-0109nituduhubwVYUNZ SABBAGHFacility:Q6Bgsdf: 61-37-4037Vntywtnvifrif examination normalShonna Brennan Other [employer] Other Start: 64-47-5170frtyhoyrbmDPTTR SABBAGHFacility:H1 Start: 08-22-2022 End: 80-81-3210slnpuyuwnlWCAXS SABBAGHFacility:X9Udrwm: 40-54-4317Zhhxq health examinationShonna Brennan Other [employer] Other Start: 07-25-2022 End: 30-58-5011eskwgpsadvGG MARCIA E BRAUNFacility:Z9Togcz: 45-36-5544dhjjmaippg DR MARCIA E BRAUNFacility:H1 Procedures DateProcedureProcedure DetailPerforming ClinicianStart: 77-21-0547YEG,APTIMA HPV,AGE GDLNAmy Steven PA Work Phone: Start: 30-24-0030Jsythhvik colonoscopy Shonna Anu Work Phone: Start: 35-92-2966VL TOMOSYNTHESIS SCREENING Teodoro Amaya DO Work Phone: Screening for malignant neoplasm of breastMarcia Anu Other Screening for malignant neoplasm of breastMarcia Anu Other Plan of Treatment DateCare ActivityDetailAuthorStart: 04-28-2026 End: 43-72-2335Ewubkak encounter procedureNOMS BCP OBStart: 11-19-2025 End: 28-60-1846Vhwvkoh encounter procedureNOMS SH ENDOCRINOLOGYStart: 05-27-2025 End: 39-43-6574Rgbcoza function 2000 panel - Serum or PlasmaHepatic function panel Lab Routine Thyrotoxicosis with diffuse goiter and without thyroid storm Expected: 05/27/2025 (Approximate), Expires: 05/27/2026NOM[facility] HealthcareComment on above:Expected: 05/27/2025 (Approximate), Expires: 05/27/2026Start: 05-27-2025 End: 36-60-7904Fldppwqhzhz [Units/volume] in Serum or PlasmaTSH Lab Routine Thyrotoxicosis with diffuse goiter and without thyroid storm Expected: 05/27/2025 (Approximate), Expires: 05/27/2026N[facility]S HealthcareComment on above: Expected: 05/27/2025 (Approximate), Expires: 05/27/2026Start: 05-27-2025 End: 75-57-3638Ugiqopkth (T4) free [Mass/volume] in Serum or PlasmaT4, free Lab Routine Thyrotoxicosis with diffuse goiter and without thyroid storm Expected: 05/27/2025 (Approximate), Expires: 05/27/2026NOMS HealthcareComment on above: Expected: 05/27/2025 (Approximate), Expires: 05/27/2026Start: 05-27-2025 End: 68-10-9844Yepjqulrvrbbclsq (T3) Free [Mass/volume] in Serum or PlasmaT3, free Lab Routine Thyrotoxicosis with diffuse goiter and without thyroid storm Expected: 05/27/2025 (Approximate), Expires: 05/27/2026[facility] Work Phone: Comment on above:Expected: 05/27/2025 (Approximate), Expires: 05/27/2026Start: 05-27-2025 End: 65-03-1990Lxofuss encounter procedureNOSAMARITAN HOSPITAL ENDOCRINOLOGYComment on above: ArrivedStart: 04-28-2025 End: 26-68-9260Driqfsd encounter uuvoncucd90/18/2025 9:00 AM EDT Office Visit [facility] OB [address] [id number] Elli Valverde, [place] [address] [place] [address] ArrivedMILLER [facility] OBComment on above:ArrivedStart: 03-16-2025 End: 69-13-2237Fofhbto encounter sdjzoatil59/06/2025 9:00 AM EDT Office Visit [facility] OB [address] [place] [id number] Elli Valverde, [place] [address] [place] [address] [facility] BCP OBStart: 11-26-2024 End: 45-73-2282Bqcjmpi function 2000 panel - Serum or PlasmaHepatic function panel Lab Routine 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) Expected: 11/26/2024 (Approximate), Expires: 11/26/2025[facility] Comment on above:Expected: 11/26/2024 (Approximate), Expires: 11/26/2025Start: 11-26-2024 End: 47-04-1112Oifzxqozhhv [Units/volume] in Serum or PlasmaTSH Lab Routine 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) Expected: 11/26/2024 (Approximate), Expires: 11/26/2025[facility] HealthcareComment on above: Expected: 11/26/2024 (Approximate), Expires: 11/26/2025Start: 11-26-2024 End: 17-50-9925Ekhxwfnjb (T4) free [Mass/volume] in Serum or PlasmaT4, free Lab Routine 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) Expected: 11/26/2024 (Approximate), Expires: 11/26/2025[facility] HealthcareComment on above:Expected: 11/26/2024 (Approximate), Expires: 11/26/2025Start: 11-26-2024 End: 14-86-1640Ycrymlelyaydzzcq (T3) Free [Mass/volume] in Serum or PlasmaT3, free Lab Routine 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) Expected: 11/26/2024 (Approximate), Expires: 11/26/2025[facility] Healthcare Work Phone: Comment on above:Expected: 11/26/2024 (Approximate), Expires: 11/26/2025Start: 13-06-1646FkodjryhcOhio State Health Systemtart: 33-05-3771Bsxsnbx [facility] Work Phone: Patient EducationColon polyps Hemorrhoids (DC) Know your [facility] Work Phone: Patient [facility] Work Phone: THIN PREP TIS PAP AND HR HPV DNATHIN PREP TIS PAP AND HR HPV DNA Pathology and Cytology Routine Well woman exam with routine gynecol ogical exam Ordered: 04/28/2025[facility] [employer] Work Phone: comment on above:Ordered: 04/28/2025 Payers DatePayer CategoryPayerPolicy [id number] [facility] [id number] 2.0.1.332223.3.57[id number] 2.0.1.805241.3.57[id number] 2.0.1.988052.3.57[id number] 2..1.470194.3.57[id number] 2.0.1.697991.3.57[id number] 2..1.105286.3.57[id number] 2..1.147636.3.57[id number] 2.0.1.987338.3.57[id number] 2.0.1.887601.3.57[id number] 2..1.586993.3.57[id number] 2.840.1.605126.3.579.2.665233-73-9452Ipwk-ukc[id number] [id number] 2..840.1.382552.3.579.2.531 Social History DateTypeDetailFacilityUnknown if ever smokedArnold [facility] Other Start: 11-26-2024 End: 33-89-2552Tsj Assigned At [facility] Other Start: 45-39-1266Cze [facility]: 01-18-2024 End: 88-69-6764Mdreqlz smoking status NHISNever smoked tobacco (finding) [facility] Systemtart: 55-04-8387Pfvyzoo use and exposure Smokeless tobacco non-userNOMS HealthcareStart: 01-18-2024 End: 78-09-9847Ibnmjnfvc beverage intakeCurrent drinker of alcohol (finding)[facility] HealthcareStart: 11-26-2024 End: 72-95-9910Ddpvwzlbx beverage intakeNOMS HealthcareStart: 41-52-8438Zai assigned at birthNot on fileNOMS HealthcareSexFemale (finding)[facility] Systemtart: 17-44-3020AtrUukqybKZHW Healthcare Goals DatePatient GoalDesired Activity/State Clinical Notes 02-11-2023 to 05-27-2025 Note Date & McjmKzriUmmabtdv42-38-8312 History of Present illness Narrative* Kallie Morel MD - 05/27/2025 9:40 AM EDT Allan Avendaño is a 49 y.o. female No ref. provider found presents with chief complaint of ThyroidProblem HPI: Interim history: 11/2023 Followup visit: 05/27/2025 TSH 1.157, free T4 1.18 (0.76-1.46), free T3 2.5 (2.18-3.19), on methimazole 5 mg 4 days a week. Interim history: 11/2023 Followup visit: 11/26/2024 TSH 1.84, free T4 0.87 (0.7-1.46), free T3 2.22 (2.18- 3.19), on methimazole 5 mg 4 days a week. Interim history: 11/2023 Followup visit: 11/28/2023 TSH 1.94, free T4 0.85 (0.7-1.46), free T3 2.69 (2.18- 3.19), on methimazole 5 mg 5 days a week. Interim history: 05/2023 Followup visit: 05/30/2023 TSH 1.42 free T4 0.81 (0.7-1.46), free T3 2.65 (2.18- 3.19), on methimazole 5 mg 5 days a week Interim history: 01/2023 Followup visit: 01/28/2023 TSH 0.62 free T4 0.7 (0.7-1.46), free T3 2.54 (2.18- 3.19), on hduwpfwxmim80 mg 5 days a week Interim history: 10/2022 Followup visit: 10/31/2022 TSH 0.07 free T4 2.1 (0.7-1.46), free T3 2.19 (2.18- 3.19), TRAB 3.12 (0-1.75), on methimazole 10 mg daily ,feels better Interim history: 08/2022 Followup visit: 08/31/2022 for thyroid scan uptake: 6 hours, 45%; 24 hours, 64%. Ultrasound shows right lobe 5.1 x 1.7 x 1.6; left lobe 4.7 x 1.6 x 1.6. There is a 5 mm nodule in the isthmus, TR4. Labs done. TSH 0.007, free T4 2.1 (0.7- 1.46), free T3 7.9 (2.18-3.19). She finished course [...] MEDICATIONS: Current Outpatient Medications Medication Instructions methIMAzole (TAPAZOLE) 5 mg, Oral, Daily metoprolol succinate XL (TOPROL-XL) 50 mg, Daily ALLERGIES: No Known Allergies Past Medical History: [...] without thyrotoxic crisis or storm Tremor, unspecified Past Surgical History: Procedure Laterality Date SECTION, LOW TRANSVERSE x2 REVIEW OF SYMPTOMS: 14 POINT OF SYSTEM REVIEWED AND NEGATIVE OBJECTIVE: Visit Vitals Pulse 74 Resp 16 Ht 5' 2 Wt 140 lb LMP 04/16/2025 (Approximate) SpO2 99% BMI 25.61 kg/m OB Status Having periods Smoking Status Never BSA 1.67 m Physical Exam Constitutional: Appearance: Normal appearance. [...] with diffuse goiter and without thyroid storm - T3, free; Future - T4, free; Future - TSH; Future - Hepatic function panel; Future Due to Graves disease, we will continue with methimazole 5 mg 4 days a week. Thyrotoxicosis with diffuse goiter without thyrotoxic crisis or storm Tremor, unspecified Palpitations We will continue her metoprolol Follow up in about 6 months (around 11/27/2025). documented in this encounterMosaic Life Care at St. [id number] Evaluation note* Diagnosis Onset Date Resolution Status Admit Date Contact dermatitis acuteJuly 2024 9:31amIntertrigoacuteJuly 2024 1:50pm [facility] Work Phone: [phone] 542-353206-18-2025 History of Present illness Narrative* Debra Staples MA - 04/28/2025 9:00 AM EDT Reason for Appointment: Patient ID: Allan Avendaño [...] nursing note reviewed. Exam conducted with a formula technician present. Vitals: Estimated body mass index is [...] behalf of: EDWIN Gonsalez documented in this encounterMosaic Life Care at St. [id number] History of Present illness Narrative* Kallie Morel MD - 11/26/2024 9:10 AM EST Allan Avendaño is a 49 y.o. female Kallie Morel MD presents with chief complaint of Thyroid Problem HPI: Interim history: 11/2023 Followup visit: 11/26/2024 TSH 1.84, free T4 0.87 (0.7-1.46), free T3 2.22 (2.18- 3.19), on methimazole 5 mg 4 days a week. Interim history: 11/2023 Followup visit: 11/28/2023 TSH 1.94, free T4 0.85 (0.7-1.46), free T3 2.69 (2.18- 3.19), on methimazole 5 mg 5 days a week. Interim history: 05/2023 Followup visit: 05/30/2023 TSH 1.42 free T4 0.81 (0.7-1.46), free T3 2.65 (2.18- 3.19), on methimazole 5 mg 5 days a week Interim history: 01/2023 Followup visit: 01/28/2023 TSH 0.62 free T4 0.7 (0.7-1.46), free T3 2.54 (2.18- 3.19), on kxaqnvsglul25 mg 5 days a week Interim history: 10/2022 Followup visit: 10/31/2022 TSH 0.07 free T4 2.1 (0.7-1.46), free T3 2.19 (2.18- 3.19), TRAB 3.12 (0-1.75), on methimazole 10 mg daily ,feels better Interim history: 08/2022 Followup visit: 08/31/2022 for thyroid scan uptake: 6 hours, 45%; 24 hours, 64%. Ultrasound shows right lobe 5.1 x 1.7 x 1.6; left lobe 4.7 x 1.6 x 1.6. There is a 5 mm nodule in the isthmus, TR4. Labs done. TSH 0.007, free T4 2.1 (0.7- 1.46), free T3 7.9 (2.18-3.19). She finished course [...] 6 months (around 05/26/2025). documented in this encounterMosaic Life Care at St. [id number] Procedure [facility]07-28-2023 Evaluation note* Encounter Date Diagnosis Assessment Notes Treatment Notes Treatment Clinical Notes May, Overweight (BMI 25.0-29.9) (ICD- 10 - E66.3) Last filled on 03/15 - discussed new pharmacy rules. BMI is 25 and she filled it in March. Unsure if [facility] can fill this. Pt expressed understanding. Discussed diet and exercise. May,Hyperthyroidism (ICD-10 - E05.90)Discussed labs and treatment with Dr. Morel [facility] Other 05-05-2023 Evaluation note* Encounter Date Diagnosis [...] plateau. Pt aware that they need to continueto work hard at weight loss or the weight will be regained. Side effects discussed and understood. Pt education printed and discussed. Pt notified of prescribing schedule with 30 day dispensing, no re fills, for up to 12 weeks, with a 6 month break in-between treatments. Id SOB, CP, mood changes, tachycardia, HTN, headaches, blurred vision occur, go to ER and Follow-up with me immediately. Understands this will likely be her last month with her good progress. March,ody mass index [BMI] 25.0-25.9, adult (ICD-10 - Z68.25) [facility] Other 04-03-2023 Evaluation note* Encounter Date Diagnosis Assessment Notes Treatment Notes Treatment Clinical Notes Feb, BMI 27.0-27.9,adult (ICD-10 - Z6 8.27) Feb,Overweight (BMI 25.0-29.9) (ICD-10 - E66.3)Patient has clearly made a good vianca effort for several months on her own to lose weight with little success. Pt to start Adipex daily. Medication is a stimulant. May cause you to be jittery or constipated. Take in the morning, may also take stool softener daily as needed. Continue to eat a healthy well balanced diet and continue work- out regimine. Pt aware that this is not [...] in-between treatments. Id SOB, CP, mood changes, tac hycardia, HTN, headaches, blurred vision occur, go to ER and Follow-up with me immediately. Advised her to cut tablets in 1/2 initially. [facility] Other 04-03-2023 Evaluation note* Encounter Date Diagnosis Assessment Notes Treatment Notes Treatment Clinical Notes Feb, BMI 27.0-27.9,adult (ICD-10 - Z6 8.27) Feb,Overweight (BMI 25.0-29.9) (ICD-10 - E66.3)Patient has clearly made a good vianca effort for several months on her own to lose weight with little success. Pt to start Adipex daily. Medication is a stimulant. May cause you to be jittery or constipated. Take in the morning, may also take stool softener daily as needed. Continue to eat a healthy well balanced diet and continue work- out regimine. Pt aware that this is not [...] in-between treatments. Id SOB, CP, mood changes, tac hycardia, HTN, headaches, blurred vision occur, go to ER and Follow-up with me immediately. Advised her to cut tablets in 1/2 initially. Feb,Hyperthyroidism (ICD-10 - E05.90)Discussed that she is under the care of Dr. Morel for this problem, this bears a component in herhair and weight issues. Continue followup with his office. [facility] Other Evaluation note* Diagnosis Onset Date Resolution Status Family history of colon cancer acuteScreening for colon canceracute [facility] Work Phone: Evaluation note* Diagnosis Onset Date Resolution Status Bronchitis acuteFamily history of colon canceracuteScreening for colon canceracute [facility] Work Phone: Evaluation noteNo assessment information available [facility] Work Phone: Evaluation note* Diagnosis Onset Date Resolution Status Allergic contact dermatitis due to plant s, except food acute [facility] Work Phone: Evaluation note* Diagnosis 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) Tremor, unspecified Palpitations documented in this encounter [facility] HealthcareEvaluation note* Diagnosis Well woman exam with routine gynecological exam Routine gynecological examination documented in this encounter [facility] HealthcareEvaluation note* Diagnosis Onset Date Resolution Status Admit Date Contact dermatitis acuteJuly 2024 9:31am [facility] Work Phone: Evaluation note* Diagnosis Thyrotoxicosis with diffuse goiter and without thyroid storm- Primary Thyrotoxicosis with diffuse goiter without thyrotoxic crisis or storm Tremor, unspecified Palpitations documented in this encounter [facility] HealthcareHistory and physical note Author Tiffany Perea [facility] March 31, 2024 8:34amNote Date/TimeMay 2023 8:07am[place] [address] Gastroenterology H&P Signed Patient: Allan Avendaño MR#: [id number] : 1975 Acct:[id number] Age/Sex: 48 / F Adm Date: 4 [...] Allergies and pertinent laboratory tests were also re viewedat this time in the EMR. The physical [...] signed by Tiffany Perea DO> 03/31/[address] [facility] Work Phone: History general Narrative - Reported* Type Description Date Medical History seasonal allergies Medical HistoryasthmaMedical Historyinfectious gastroenteritisMedical History myalgiaMedical Historyintention tremorMedical HistoryHPV infectionSurgical Historycesarean sectionHospitalization Historysee surgical [facility] Other Hospital Discharge instructionsAmbulatory Orders* Referral to Gastroenterology Time Frame: 02/10/24, Location: None Selected [facility] Work Phone: Reason for referral (narrative)No reason for referral information availableMemorial Health System Work Phone: Summary Purpose Family History Relationship Condition Age at Onset Recorded Date/T karthik father Unknown Not SpecifiedHypertensionUnknown Relationship Condition Age at Onset Recorded Date/T karthik father Unknown Peripheral vascular diseaseUnknownNot SpecifiedHypertensionUnknown Relationship Condition Age at Onset Recorded Date/T karthik father Unknown Peripheral vascular diseaseUnknownmotherHypertensionUnknown Advance Directives Advance Directive Response Recorded Date/ Time Advance Directives No February 09 10:32am Chief Complaint and Reason for Visit Chief Complaint Sick-Sinuses Reason for Visit Family history of co donna cancer Screening for colon cancer Chief Complaint Sick-Sinuses Screening ScreeningReason for VisitBronchitis Family history of colon cancer Screening for colon cancer Chief Complaint poison leander Chief Complaint poison leander Urinary Tract Infection / UTIReason for VisitAllergic contact dermatitis due to plants, except food Chief Complaint Admit Date poison leander May 12, 2025 9:31a m Reason for Visit Admit Date Contact dermatitis May 12, 2025 9:31a m Chief Complaint Admit Date poison leander May 12, 2025 9:31a m Poison Leander May 26, 2025 1:50 pm Reason for Visit Admit Date Contact dermatitis May 12, 2025 9:31a m Intertrigo May 26, 2025 1:50 pm Additional Source Comments INFORMATION SOURCE (unrecogn ized section and content) DATE CREATED AUTHOR 01/23/2023 [facility] DATE CREATED AUTHOR AUTHOR'S ORGANIZ ATION 04/05/2024 [facility] DATE CREATED AUTHOR AUTHOR'S ORGANIZ ATION 05/30/2025 [facility] EPIC REASON FOR VISIT (unrecogniz ed section and content) ReasonCommentsThyroid ProblemReasonCommentsGynecologic Exam Care Teams (unrecognized sec tion and content) Team Status: Active Member Role Status Dates Shonna Brennan MD Primary Care Provider Active Team Status: Active Member Role Status Dates Shonna Brennan MD Primary Care Provider Active Start: May 18, 2024 Kallie Morel MDAtttami ProviderActiveStart: May 18, 2024 Team Status: Inactive Member Role Status Chiara Brennan MD Primary Care Provide r, Attending Provider Active Start: July 09, 2024 End: July 09, 2024 Team Status: Inactive Member Role Status Chiara Brennan MD Primary Care Provide r, Attending Provider Active Start: February 10, 2024 End: February 10, 2024 Team Status: Active Member Role Status Dates Shonna Brennan MD Primary Care Provider Active Start: March 09, 2024 Merrill FazioAttending ProviderActiveStart: March 09, 2024 Team Status: Inactive Member Role Status Dates Shonna Brennan MD Primary Care Provider Active Start: March 31, 2024 End: March 31atherine L Ly , DOAttending ProviderActiveStart: March 31, 2024 End: March 31, 2024 Team Status: Active Member Role Status Chiara Brennan MD Primary Care Provider Active Start: March 31, 2024 Tiffany L Ly , DOAttending Provider, Other ProviderActiveStart: March 31, 2024 Team Status: Inactive Member Role Status Chiara Brennan MD Primary Care Provide r, Attending Provider Active Start: August 10, 2024 End: August 10, 2024Team MemberRelationshipSpecialtyStart DateEnd Date Shonna Brennan MD [address] [place] [address] PCP - GeneralFamily Medicine03/09/24Team MemberRelationshipSpecialtyStart DateEnd Date Shonna Brennan MD PCP - GeneralCass [facility] Systemly Medicine03/09/24Team MemberRelationshipSpecialtyStart DateEnd Date Shonna Brennan MD PCP - Generalmi Medicine03/09/24Team MemberRelationshipSpecialtyStart DateEnd Date Shonna Brennan MD [address] [place], [place] [id number] PCP - GeneralFami Medicine04/28/25 Team Status: Active Member Role Status Dates Shonna Brennan MD Primary Care Provider Active Start: April 28, 2025 EDWIN Gonsalez-CAtniurka ProviderActiveStart: April 28, 2025 Team Status: Inactive Member Role Status Dates Shonna Brennan MD Primary Care Provider Active Start: May 12, 2025 End: May 12, 2025Chantelle Estrada APRN NP-CAttenantony ProviderActiveStart: May 12, 2025 End: May 12, 2025 Team Status: Active Member Role Status Dates Shonna Brennan MD Primary Care Provider Active Start: May 21, 2025 Carmelo Luis ProviderActiveStart: May 21, 2025 Team Status: Inactive Member Role Status Dates Shonna Brennan MD Primary Care Provider Active Start: May 26, 2025 End: May 26, 2025Chantelle Estrada APRN PULP REFINER OPERATOR-CAttending ProviderActive Start: May 26, 2025 End: May 26, 2025Team MemberRelationshipSpecialtyStart DateEnd Date Shonna Brennan MD [address] [place] [id number] [facility]Team MemberRelationshipSpecialtyStart DateEnd Date Shonna Brennan MD PCP - GeneralFamily Medicine Shonna Brennan MD [address] [facility] [place] [id number] PCP - [facility]04/28/25 Goals (unrecognized section and content) Goals may [...] BE BASED ON THE PRIMARY CLINICAL RECORDS. [employer] [facility]. provides no warranty or guarantee of the accuracy or completeness of information in this document.
[2025-11-10 10:46] LABS: Alanine Aminotransferase 26 U/L (14-59); Albumin Globulin Ratio 1.0; Albumin Level 3.6 g/dL (3.4-5.0); Alkaline Phosphatase 67 U/L (46-116); Aspartate Amino Transferase 23 U/L (15-37); Free T3 1.96 pg/mL (2.18-3.98); Globulin 3.5 g/dL; Thyroid Stimulating Hormone 0.597 uIU/mL (0.358-3.740); Total Protein 7.1 g/dL (6.4-8.2)
== END 2025-11-10 09:33 | disposition home or self-care (01) ==
LOC: LAB 09:33
PROVIDERS: PCP Family Medicine; Visit Provider Internal Medicine
DX: E05.00 Thyrotoxicosis with diffuse goiter without thyrotoxic crisis or storm (principal)
CPT/HCPCS: 36415; 80076; 84439; 84443; 84481